=== PATIENT | female | born 1950 | race Caucasian/White ===

== ENCOUNTER 2020-03-07 08:53 | Emergency (ER) | payer OTHER, BC ==
--- OUTSIDE RECORDS SUMMARY | 2020-03-07 08:55 | XMS REPORT | Continuity of Care Document ---
:1950 Author Organization [facility] t Address [address] [place] [address] Care Team Providers Name Role Phone Juan David DELGADO Attending Clinician Doctor Unassigned, Name Attending Clinician Unavailable Problems This patient has no known problems. Allergies, Adverse Reactions, Alerts This patient has no known allergies or adverse reactions. Medications This patient has no known medications. Procedures This patient has no known procedures. Encounters Start End Encounter Admission Attending Care Care Encounter Source Date/Time Date/Time Type Type Clinicians Facility Department ID 2020-03-04 2020-03-04 Telephone Juan David [facility] [id number] 00:00:00 00:00:00 [facility] [id number] [place] [id number] Professio [phone] nal [address] One 2020-03-03 2020-03-03 Telemedici Juan David [facility] [id number] 06:51:01 07:06:01 ne Visit [facility] [id number] [place] [id number] Professio [phone] nal 044 Office [address] One 2020-02-23 2020-02-23 Refill Doctor [facility] [id number] 00:00:00 00:00:00 Unassigned, Anoop [id number] [place] [id number] Professio [phone] [address] 2020-02-23 2020-02-23 Refill Doctor [facility] [id number] 00:00:00 00:00:00 Unassigned, Health [id number] [place] [id number] Professio [phone] [place] [address] Office [facility] 2020-02-21 2020-02-21 Telephone Juan David [facility] [id number] 00:00:00 00:00:00 [facility] [id number] [place] [id number] Professio [phone] [address] 2020-02-20 2020-02-20 Patient Juan David, [facility] [id number] 00:00:00 00:00:00 Secure Msg Chase [facility]al[facility] [id number] [place] [id number] Professio [id number] [address] 2020-02-20 2020-02-20 Orders Doctor [facility] [id number] 00:00:00 00:00:00 Only Unassigned, ANJELICA [id number] [place] [facility] 4.2.7.2.686 [id number] 009 2020-02-19 2020-02-19 Patient Juan David, [facility] [id number] 00:00:00 00:00:00 Secure Msg Chase Davalos [id number] [place] [id number] Professio [phone] [address] 2020-01-31 2020-01-31 Patient Juan David, [facility] [id number] 00:00:00 00:00:00 Secure Msg Chase Davalos [id number] [place] [id number] Professio [phone] [address] 2019-12-18 2019-12-18 Orders Doctor [facility] [id number] 00:00:00 00:00:00 Only Unassigned, ANJELICA [id number] [place] [facility] [id number] [id number] [id number] Results This patient has no known results.
--- OUTSIDE RECORDS SUMMARY | 2020-03-07 08:56 | XMS REPORT | Summary of Care ---
:1950 Author Organization [facility] Address [address] [place] [address] Care Team Providers Name Role Phone MD Juan David Primary Care Provider Reason for Visit Reason Comments Refill Request Encounter Details Date Type Department Care Team Description 12/29/2019 Refill [facility] Chase Sanchez MD Refill Request - [address] [place] [address] [place] [address] [phone] Allergies Active Allergy Reactions Severity Noted Date Comments Penicillins Unknown - See comments 12/03/2014 Unsur e of reaction was as a child documented as of this encounter (statuses as of 12/30/2019) Medications Medication Sig Dispensed Refills Start Date End Date Status zolpidem 10 mg Take 1 tablet 30 tablet 5 08/29/2019 Active tabletIndications: by mouth at Insomnia, unspecified bedtime as type needed for Insomnia. predniSONE 10 mg Take 1 tablet 30 tablet 5 08/29/2019 Active tabletIndications: by mouth Chronic low back pain daily. without sciatica, unspecified back pain laterality omeprazole 40 mg Take 1 60 capsule 2 08/29/2019 A ctive capsuleIndications: capsule by Gastroesophageal mouth 2 (two) reflux disease, times daily. esophagitis presence not specified LORazepam 1 mg Take 1 tablet 90 tablet 5 08/29/2019 Active tabletIndications: by mouth 3 Anxiety (three) times daily as needed for Anxiety or Agitation. FLUoxetine 20 mg TAKE ONE 90 capsule 1 08/29/2019 A ctive capsuleIndications: CAPSULE BY Depression, MOUTH AT unspecified BEDTIME depression type estradiol 2 mg Take 1 tablet 90 tablet 1 08/29/2019 Active tabletIndications: by mouth Menopause daily. diltiazem 60 mg Take 1 tablet 60 tablet 3 11/28/2019 Active tabletIndications: by mouth 4 Diffuse esophageal (four) times spasm daily. acetaminophen-codeine Take 1 tablet 180 tablet 0 12/02/2019 Active 300-60 mg by mouth tabletIndications: every 4 Chronic low back pain (four) hours without sciatica, as needed for unspecified back pain Pain. laterality metoclopramide HCl 10 TAKE 1 TABLET 100 tablet 1 12/02/2019 Active mg tabletIndications: BY MOUTH Irritable bowel EVERY 6 HOURS syndrome, unspecified NEEDED FOR type NAUSEA OR VOMITING temazepam 30 mg TAKE 1 30 capsule 5 12/30/2019 Ac tive capsuleIndications: CAPSULE BY Insomnia, unspecified MOUTH AT type BEDTIME NEEDED FOR INSOMNIA temazepam 30 mg TAKE ONE 30 capsule 5 08/29/2019 Di scontinued capsuleIndications: CAPSULE BY 0 Insomnia, unspecified MOUTH AT type BEDTIME NEEDED FOR INSOMNIA documented as of this encounter (statuses as of 12/30/2019) Active Problems Problem Noted Date Esophageal dysphagia 01/14/2019 Overview: Added automatically from request for omega mary [id number] Moderate protein-calorie malnutrition 01/14/2019 Overview: Added automatically from request for omega mary [id number] Weight loss, unintentional 01/14/2019 Overview: Added automatically from request for omega mary [id number] Altered mental status 11/28/2018 C. difficile diarrhea 10/18/2018 Altered mental state 10/15/2018 Abdominal pain 07/12/2018 Hiatal hernia 06/26/2018 Nausea 06/25/2018 Chest pain, unspecified 06/13/2018 Gastroenteritis 06/13/2018 Vertebral osteomyelitis 12/14/2016 E coli infection 12/14/2016 Infection 12/13/2016 Dyslipidemia 11/08/2016 Chronic low back pain without sciatica, unspecified ba ck pain laterality 10/31/2016 Insomnia, unspecified type 10/31/2016 Anxiety 10/31/2016 Osteomyelitis 10/12/2016 Leukocytosis 10/12/2016 History of back surgery 10/05/2016 Surgery, elective 09/21/2016 S/P lumbar fusion 09/01/2016 Essential hypertension 08/15/2016 Low T4 07/29/2016 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 Adrenal insufficiency 12/03/2014 Hyponatremia 11/12/2014 Hypokalemia 11/12/2014 Long-term current use of steroids 11/12/2014 Borderline abnormal thyroid function test 11/12/2014 Thyroid disease documented as of this encounter (statuses as of 12/30/2019) Resolved Problems Problem Noted Date Resolved Date Low serum cortisol level 11/12/2014 03/11/2015 documented as of this encounter (statuses as of 12/30/2019) Social History Tobacco Use Types Packs/Day Years Used Date Former Smoker Cigarettes 1.5 8 Smokeless Tobacco: Never Used Comments: smoked from [age] years old Alcohol Use Drinks/Week oz/Week Comments Yes Sex Assigned at Date Recorded Not on file Job Start Date Occupation Industry Not on file Not on file Not on file Travel History Travel Start Travel End No recent travel history available. documented as of this encounter Last Filed Vital Signs Not on filedocumented in this encounter Plan of Treatment Date Type Specialty Care Team Description 01/17/2020 Office Visit Gastroenterology Elena Burnette MD [address] [facility] [address] [place] [phone] Health Maintenance Due Date Last Done Comments HEPATITIS C (HCV) SCREEN 1950 DTaP,Tdap,and Td Vaccines (1 - Tdap) 1961 Breast Cancer Screening (MAMMOGRAM) 1990 COLONOSCOPY 2000 Zoster Recombinant Vaccine (SHINGRIX) (1 2000 of 2) Medicare Wellness Visit 10/11/2015 PNEUMOCOCCAL VACCINES 65+ (1 of 2 - PCV13) 10/11/2015 LUNG CANCER SCREEN: Recommended for age 0106/30/2019 06/30/19 19, 10/05/2016 55-80 with 30 + pack year history INFLUENZA VACCINE (#1) 2020 Depression Screening 05/21/2020 05/21/2019 Osteoporosis Screening 08/03/2026 08/03/2016 documented as of this encounter Implants Implanted Type Area Commercial Loan Assistant Device Shelf Model / Identifier Expiration Serial / Lot Date [facility] Maxxeus 10cc Cts #2017-40 - [id number] BONE N/A: [employer] 01/09/2018 / Implanted: Qty: 1 on 09/01/2016 by Fredrick Epps MD at [facility] [id number] Dbm Putty Maxxeus 10cc Cts #2017-40 - [id number] BONE N/A: [employer] 01/09/2018 / Implanted: Qty: 1 on 09/01/2016 by Fredrick Epps MD at [facility] [id number] Cancellous Crushed, [facility] Tissue Ser vices (1 10mm) Freeze Dried 90.0 Cc #1235-12 - [id number] BONE N/A: [facility] 11/09/20201234 / Implanted: Qty: 1 on 09/01/2016 by Fredrick Epps MD at [facility] [id number] Dbm Putty Maxxeus 10cc Cts #2017-40 - [id number] BONE N/A: [facility] 01/09/2018 / Implanted: Qty: 1 on 09/21/2016 by Fredrick Epps MD at [facility] [id number] [facility] [place] us Crushed (1 10mm) Freeze Dried 30.0 Cc #1024-12 - [id number] BONE N/A: [facility] 05/25/2021 Implanted: Qty: 1 on 09/21/2016 by Fredrick Epps MD at [facility] [id number] [facility] Tissue [facility] [place] us Crushed (1 10mm) Freeze Dried 30.0 Cc #1024-12 - [id number] BONE N/A: [facility] 05/25/2021 10 Implanted: Qty: 1 on 09/21/2016 by Fredrick Epps MD at [facility] [id number] Dbm Putty Maxxeus 10cc Cts #2018-40 - [id number] BONE N/A: [facility] 02/09/20182017-40 / Implanted: Qty: 1 on 12/16/2016 by Fredrick Epps MD at [facility] [id number] [id number] Cancellous Crushed, [facility] Tissue Ser vices (1 10mm) Freeze Dried 60.0 Cc #1234-12 - [id number] BONE N/A: [facility] 11/11/2021 12 34-12 / Implanted: Qty: 1 on 12/16/2016 by Fredrick Epps MD at [facility] [id number] 9 Cancellous Crushed, [facility] Tissue Ser vices (1 10mm) Freeze Dried 60.0 Cc #1234-12 - [id number] BONE N/A: [facility] 11/11/2021 3412 / Implanted: Qty: 1 on 12/16/2016 by Fredrick Epps MD at [facility] [id number] 9 Dbm Putty Maxxeus 10 Cts #2017-40 - [id number] BONE N/A: [facility] 02/09/20182017- / Implanted: Qty: 1 on 12/16/2016 by Fredrick Epps MD at [facility] [id number] Crosslink 4.75x10 Mltspn 38-42mm Medtronic #[id number] Crosslink N/A: Medtronic 12/16/2026 [id number] / Implanted: Qty: 2 on 12/16/2016 by Fredrick Epps MD at [facility] Back 0 / [id number] Lens LENS Right: Rell 05/11/2020 SN60WF / Implanted: Qty: 1 on 09/30/2015 by Leonel Davis MD at [facility] Eye 3 [id number] / [id number] Lens LENS Left: Rell 04/11/2020 SN60WF / Implanted: Qty: 1 on 10/14/2015 by Leonel Davis MD at [facility] 8 [id number] / [id number] Screw Solera 6.5x50mm Medtronic #[id number] - S0 SCREW N/A: Medtronic 09/01/2026 [id number] / Implanted: Qty: 4 on 09/01/2016 by Fredrick Epps MD at [facility] Spine 0 / [id number] Screw, Medtronic Solara 6.5x45 #[id number] - S0 SCREW N/A: Medtronic 09/01/2026 [id number] / Implanted: Qty: 2 on 09/01/2016 by Fredrick Epps MD at [facility] Spine 0 / [id number] Screw, Medtronic Solara 6.5x40 #[id number] - S0 SCREW N/A: Medtronic 09/01/2026 [id number] / Implanted: Qty: 2 on 09/01/2016 by Fredrick Epps MD at [facility] Spine 0 / [id number] Screw Solera 6.5x50mm Medtronic #[id number] - S0 SCREW N/A: Medtronic [id number] / Implanted: Qty: 2 on 09/21/2016 by Fredrick Epps MD at [facility] Spine 0 / [id number] Pedicle Screw 5.0 X 50mm SCREW N/A: Medtronic 12/16 [id number] / Implanted: Qty: 1 on 12/16/2016 by Fredrick Epps MD at [facility] Back 0 / [id number] Pedicle Screw 5.0 X 45mm SCREW N/A: Medtronic 12/16 [id number] / Implanted: Qty: 4 on 12/16/2016 by Fredrick Epps MD at [facility] Back 0 / [id number] Pedicle Screw 4.5 X 45mm SCREW N/A: Medtronic 12/16 [id number] / Implanted: Qty: 1 on 12/16/2016 by Fredrick Epps MD at [facility] Back 0 / [id number] Pedicle Screw 4.5 X 40mm SCREW N/A: Medtronic 12/16 [id number] / Implanted: Qty: 1 on 12/16/2016 by Fredrick Epps MD at [facility] Back 0 / [id number] Pedicle Screw 5.0 X 40mm SCREW N/A: Medtronic 12/16 [id number] / Implanted: Qty: 1 on 12/16/2016 by Fredrick Epps MD at [facility] Back 0 / [id number] Screw Solera 4.75 Ti Ns Break Off Medtronic #[id number] - S0 N/A: Medtronic 09/01/2026 [id number] / Implanted: Qty: 8 on 09/01/2016 by Fredrick Epps MD at [facility] Spine 0 / [id number] Angel 4.75 Ccm Ns Curved 100mm Solera Medtronic #[id number] - S0 N/A: Medtronic 09/01/2026 [id number] / Implanted: Qty: 2 on 09/01/2016 by Fredrick Epps MD at [facility] Spine 0 / 0 Screw Solera 4.75 Ti Ns Break Off Medtronic #[id number] - S0 N/ A: Medtronic [id number] / Implanted: Qty: 10 on 09/21/2016 by Fredrick Ziegler MD at [facility] Spine 0 / [id number] Screw Solera 7.5x50mm Medtronic #[id number] - S0 N/A: Medtronic [id number] / Implanted: Qty: 1 on 09/21/2016 by Fredrick pEps MD at [facility] Spine 0 / [id number] Screw Solera 8.5x45mm Mas Medtronic #[id number] - S0 N/A: Medtronic [id number] / Implanted: Qty: 1 on 09/21/2016 by Fredrick Epps MD at [facility] Spine 0 / [id number] Angel 4.74h139iz Medtronic #[id number] - S0 N/A: Medtroni c [id number] / Implanted: Qty: 1 on 09/21/2016 by Fredrick Epps MD at [facility] Spine 0 / 0 Screw Solera 4.75 Ti Ns Break Off Medtronic #[id number] - S0 N/A: Medtronic 12/16/2026 [id number] / Implanted: Qty: 16 on 12/16/2016 by Fredrick Ziegler MD at [facility] Back 0 / [id number] Angel 4.48f781nl Medtronic #[id number] - S0 N/A: Medtroni c 12/16/2026 [id number] / Implanted: Qty: 1 on 12/16/2016 by Fredrick Epps MD at [facility] Back 0 / 0 documented as of this encounter Results Not on filedocumented in this encounter Visit Diagnoses Diagnosis Insomnia, unspecified type documented in this encounter Additional Health Concerns Infection Onset Date Last Indicated Resolved Time Extended Contact- CDiff 10/18/2018 10/18/2018 documented as of this encounter Insurance Payer Benefit Plan / Subscriber ID Effective Phone Address T ype Group Dates MEDICARE MEDICARE PART A xxxxxxxxxxx 2015-Pres [phone] [address] Medicare & B ent [phone] [id number] [place] [id number] BCBS OF BCBS [id number] 2018-Pres [phone] [facility] ent [phone] [place] [address] documented as of this encounter
--- OUTSIDE RECORDS SUMMARY | 2020-03-07 08:56 | XMS REPORT | Summary of Care ---
:1950 Author Organization [facility] - [facility] Address [address] [place] [address] Care Team Providers Name Role Phone MD Juan David Primary Care Provider Encounter Details Date Type Department Care Team Description 11/08/2019 Patient Secure [facility] Pediatric Doctor Simone arceo, and [facility] [place] [address] [place] [address] Allergies Active Allergy Reactions Severity Noted Date Comments Penicillins Unknown - See comments 12/03/2014 Unsur e of reaction was as a child documented as of this encounter (statuses as of 12/14/2019) Medications Medication Sig Dispensed Refills Start Date End Date Status zolpidem 10 mg Take 1 tablet 30 tablet 5 08/29/2019 Active tabletIndications: by mouth at Insomnia, unspecified bedtime as type needed for Insomnia. temazepam 30 mg TAKE ONE 30 capsule 5 08/29/2019 Ac tive capsuleIndications: CAPSULE BY Insomnia, unspecified MOUTH AT type BEDTIME NEEDED FOR INSOMNIA predniSONE 10 mg Take 1 tablet 30 tablet 5 08/29/2019 Active tabletIndications: by mouth daily. Chronic low back pain without sciatica, unspecified back pain laterality omeprazole 40 mg Take 1 capsule 60 capsule 2 08/29/2019 Active capsuleIndications: by mouth 2 Gastroesophageal reflux (two) times disease, esophagitis daily. presence not specified LORazepam 1 mg Take 1 tablet 90 tablet 5 08/29/2019 Active tabletIndications: by mouth 3 Anxiety (three) times daily as needed for Anxiety or Agitation. FLUoxetine 20 mg TAKE ONE 90 capsule 1 08/29/2019 A ctive capsuleIndications: CAPSULE BY Depression, unspecified MOUTH AT depression type BEDTIME estradiol 2 mg Take 1 tablet 90 tablet 1 08/29/2019 Active tabletIndications: by mouth daily. Menopause documented as of this encounter (statuses as of 12/14/2019) Active Problems Problem Noted Date Esophageal dysphagia 01/14/2019 Overview: Added automatically from request for omega mary [id number] Moderate protein-calorie malnutrition 01/14/2019 Overview: Added automatically from request for omega mary [id number] Weight loss, unintentional 01/14/2019 Overview: Added automatically from request for omega mary [id number] Altered mental status 11/28/2018 C. difficile diarrhea [...] as of this encounter (statuses as of 12/14/2019) Resolved Problems Problem Noted Date Resolved Date Low serum cortisol level 11/12/2014 03/11/2015 documented as of this encounter (statuses as of 12/14/2019) Social History Tobacco Use Types Packs/Day Years [...] Office Visit Gastroenterology Elena Burnette MD [address] [facility] [address] [place] [address] Health Maintenance Due Date Last Done Comments [...] 30 + pack year history INFLUENZA VACCINE (Season Ended) 2020 Depression Screening 05/21/2020 05/21/2019 Osteoporosis Screening 08/03/2026 08/03/2016 documented as of this encounter Implants Implanted Type Area Armed Security Professional Device Shelf Model / Identifier Expiration Serial / Lot Date Dbm Putty Maxxeus 10cc Cts #2017-40 - [id number] BONE N/A: [employer] 01/09/2018 / Implanted: Qty: 1 on 09/01/2016 by Fredrick Epps MD at [facility] [id number] Dbm Putty Maxxeus 10cc Cts #2017-40 - [id number] BONE N/A: [employer] 01/09/2018 / Implanted: Qty: 1 on 09/01/2016 by Fredrick Epps MD at [facility] [id number] Cancellous Crushed, [facility] Ser vices (1 10mm) Freeze Dried 90.0 Cc #1235-12 - [id number] BONE N/A: Community 11/09/2020 1235 - / Implanted: Qty: 1 on 09/01/2016 by Fredrick Epps MD at [facility] [id number] [phone] Dbm Putty Maxxeus 10cc Cts #2017-40 - [id number] BONE N/A: [facility] 01/09/2018 / Implanted: Qty: 1 on 09/21/2016 by Fredrick Epps MD at [facility] [phone] [facility] Cancello us Crushed (1 10mm) Freeze Dried 30.0 Cc #1024-12 - [id number] BONE N/A: [facility] 05/25/2021 10 Implanted: Qty: 1 on 09/21/2016 by Fredrick Epps MD at [facility] [phone] [facility] Cancello us Crushed (1 10mm) Freeze Dried 30.0 Cc #1024-12 - [id number] BONE N/A: [facility] 05/25/2021 10 / Implanted: Qty: 1 on 09/21/2016 by Fredrick Epps MD at [facility] [phone] Dbm Putty Maxxeus 10cc Cts #2017-40 - [id number] BONE N/A: [facility] 02/09/2018 / Implanted: Qty: 1 on 12/16/2016 by Fredrick Epps MD at [facility] [id number] [phone] Cancellous Crushed, [facility] Tissue Ser vices (1 10mm) Freeze Dried 60.0 Cc #1234-12 - [id number] BONE N/A: [facility] 11/11/2021 12 / Implanted: Qty: 1 on 12/16/2016 by Fredrick Epps MD at [facility] [phone] Cancellous Crushed, [facility] Tissue Ser vices (1 10mm) Freeze Dried 60.0 Cc #1234-12 - [id number] BONE N/A: Community 11/11/2021 12 34-12 / Implanted: Qty: 1 on 12/16/2016 by Fredrick Epps MD at [facility] [phone] -[phone] Dbm Putty Maxxeus 10cc Cts #2018-40 - [id number] BONE N/A: [facility] 02/09/2018 / Implanted: Qty: 1 on 12/16/2016 by Fredrick Epps MD at [facility] [phone] [phone] Crosslink 4.75x10 Mltspn 38-42mm Medtronic #[id number] Crosslink N/A: Medtronic 12/16/2026 [id number] / Implanted: Qty: 2 on 12/16/2016 by Fredrick Epps MD at [facility] / [id number] Lens LENS Right: Rell 05/11/2020 SN60WF / Implanted: Qty: 1 on 09/30/2015 by Leonel Davis MD at [facility] 2 [id number] / [id number] Lens LENS Left: Rell 04/11/2020 SN60WF / Implanted: Qty: 1 on 10/14/2015 by Leonel Davis MD at [facility] 6 [id number] / [id number] Screw Solera 6.5x50mm Medtronic #[id number] - S0 SCREW N/A: Medtronic 09/01/2026 [id number] / Implanted: Qty: 4 on 09/01/2016 by Fredrick Epps MD at [facility] / [id number] Screw, Medtronic Solara 6.5x45 #[id number] - S0 SCREW N/A: Medtronic 09/01/2026 [id number] / Implanted: Qty: 2 on 09/01/2016 by Fredrick Epps MD at [facility] / [id number] Screw, Medtronic Solara 6.5x40 #[id number] - S0 SCREW N/A: Medtronic 09/01/2026 [id number] / Implanted: Qty: 2 on 09/01/2016 by Fredrick Epps MD at [facility] / [id number] Screw Solera 6.5x50mm Medtronic #[id number] - S0 SCREW N/A: Medtronic [id number] / Implanted: Qty: 2 on 09/21/2016 by Fredrick Epps MD at [facility] 0 / [id number] Pedicle Screw 5.0 X 50mm SCREW N/A: Medtronic 12/16 [id number] / Implanted: Qty: 1 on 12/16/2016 by Fredrick Epps MD at [facility] 0 / [id number] Pedicle Screw 5.0 X 45mm SCREW N/A: Medtronic 12/16 [id number] / Implanted: Qty: 4 on 12/16/2016 by Fredrick Epps MD at [facility] 0 / [id number] Pedicle Screw 4.5 X 45mm SCREW N/A: Medtronic 12/16 [id number] / Implanted: Qty: 1 on 12/16/2016 by Fredrick Epps MD at [facility] 0 / [id number] Pedicle Screw 4.5 X 40mm SCREW N/A: Medtronic 12/16 [id number] / Implanted: Qty: 1 on 12/16/2016 by Fredrick Epps MD at [facility] 0 / [id number] Pedicle Screw 5.0 X 40mm SCREW N/A: Medtronic 12/16 [id number] / Implanted: Qty: 1 on 12/16/2016 by Fredrick Epps MD at [facility] 0 / [id number] Screw Solera 4.75 Ti Ns Break Off Medtronic #[id number] - S0 N/A: Medtronic 09/01/2026 [id number] / Implanted: Qty: 8 on 09/01/2016 by Fredrick Epps MD at [facility] 0 / [id number] Angel 4.75 Ccm Ns Curved 100mm Solera Medtronic #[id number] - S0 N/A: Medtronic 09/01/2026 [id number] / Implanted: Qty: 2 on 09/01/2016 by Fredrick Epps MD at [facility] / 0 Screw Solera 4.75 Ti Ns Break Off Medtronic #[id number] - S0 N/ A: Medtronic [id number] / Implanted: Qty: 10 on 09/21/2016 by Fredrick Ziegler MD at [facility] / [id number] Screw Solera 7.5x50mm Medtronic #[id number] - S0 N/A: Medtronic [id number] / Implanted: Qty: 1 on 09/21/2016 by Fredrick Epps MD at [facility] / [id number] Screw Solera 8.5x45mm Mas Medtronic #[id number] - S0 N/A: Medtronic [id number] / Implanted: Qty: 1 on 09/21/2016 by Fredrick Epps MD at [facility] / [id number] Angel 4.79x371or Medtronic #[id number] - S0 N/A: Medtroni c [id number] / Implanted: Qty: 1 on 09/21/2016 by Fredrick Epps MD at [facility] / 0 Screw Solera 4.75 Ti Ns Break Off Medtronic #[id number] - S0 N/A: Medtronic 12/16/2026 [id number] / Implanted: Qty: 16 on 12/16/2016 by Fredrick Ziegler MD at [facility] 0 / [id number] Angel 4.22w307sc Medtronic #[id number] - S0 N/A: Medtroni c 12/16/2026 [id number] / Implanted: Qty: 1 on 12/16/2016 by Fredrick Epps MD at [facility] 0 / 0 documented as of this encounter Results Not on filedocumented in this encounter Additional Health Concerns Infection Onset Date Last Indicated Resolved Time Extended Contact- CDiff 10/18/2018 10/18/2018 documented as of this encounter Insurance Payer Benefit Plan / Subscriber ID Effective Phone Address T ype Group Dates MEDICARE MEDICARE PART A xxxxxxxxxxx 2015-Pres [phone] [address] [place] Medicare & B ent [id number] RACHEL BROWN [phone] BCBS OF BCBS [id number] 2018-Pres [phone] [address] [facility] TRADITIONAL ent [phone] [place] [address] documented as of this encounter
--- OUTSIDE RECORDS SUMMARY | 2020-03-07 08:57 | XMS REPORT | Summary of Care ---
:1950 Author Organization [facility] - [facility] Address [address] [place] [address] Care Team Providers Name Role Phone MD Juan David Primary Care Provider Encounter Details Date Type Department Care Team Description 01/02/2020 Patient Secure [facility] GASTROENTEROLOGY [place], [place] MD Jemma [phone] [place], [place] [phone] Allergies Active Allergy Reactions Severity Noted Date Comments Penicillins Unknown - See comments 12/03/2014 Unsur e of reaction was as a child documented as of this encounter (statuses as of 01/06/2020) Medications Medication Sig Dispensed Refills Start Date [...] 08/29/2019 Active tabletIndications: by mouth daily. Menopause diltiazem 60 mg Take 1 tablet 60 tablet 3 11/28/2019 Active tabletIndications: by mouth 4 Diffuse esophageal spasm (four) times daily. acetaminophen-codeine Take 1 tablet 180 tablet 0 12/02/2019 Active 300-60 mg by mouth every tabletIndications: 4 (four) hours Chronic low back pain as needed for without sciatica, Pain. unspecified back pain laterality metoclopramide HCl 10 mg TAKE 1 TABLET 100 tablet 1 12/02/2019 Active tabletIndications: BY MOUTH EVERY Irritable bowel 6 HOURS syndrome, unspecified NEEDED FOR type NAUSEA OR VOMITING temazepam 30 mg TAKE 1 CAPSULE 30 capsule 5 12/30/2019 Active capsuleIndications: BY MOUTH AT Insomnia, unspecified BEDTIME type NEEDED FOR INSOMNIA documented as of this encounter (statuses as of 01/06/2020) Active Problems Problem Noted Date Esophageal dysphagia 01/14/2019 Overview: Added automatically from request for omega mary [id number] Moderate protein-calorie malnutrition 01/14/2019 Overview: Added automatically from request for omega mary [id number] Weight loss, unintentional 01/14/2019 Overview: Added automatically from request for omega mary [id number] Altered mental status 11/28/2018 C. difficile diarrhea [...] as of this encounter (statuses as of 01/06/2020) Resolved Problems Problem Noted Date Resolved Date Low serum cortisol level 11/12/2014 03/11/2015 documented as of this encounter (statuses as of 01/06/2020) Social History Tobacco Use Types Packs/Day Years [...] Office Visit Gastroenterology Elena Burnette MD [address] [facility] [address] [place] [phone] Health Maintenance Due Date Last Done Comments [...] of this encounter Implants Implanted Type Area Car Repairer Helper Device Shelf Model / Identifier Expiration Serial / Lot Date Dbelina Membreno [address]cc [facility] #2018-40 - [id number] BONE N/A: [employer] 01/09/20182017-40 / Implanted: Qty: 1 on 09/01/2016 by Penny bañuelos, Fredrick Hernandez MD at [facility] [phone] Dbm Putty Maxxeus 10cc Cts #2017-40 - [id number] BONE N/A: [employer] 01/09/2018 / Implanted: Qty: 1 on 09/01/2016 by Fredrick Epps MD at [facility] [phone] -[phone] Cancellous Crushed, [facility] Tissue Ser vices (1 10mm) Freeze Dried 90.0 Cc #1235-12 - [id number] BONE N/A: [facility] 11/09/20201234 / Implanted: Qty: 1 on 09/01/2016 by Fredrick Epps MD at [facility] 231475-12 0 [phone] Dbm Putty Maxxeus 10cc Cts #2017-40 - [id number] BONE N/A: [facility] 01/09/2018 / Implanted: Qty: 1 on 09/21/2016 by Fredrick Epps MD at [facility] [phone] 1 [facility] [place] us Crushed (1 10mm) Freeze Dried 30.0 Cc #1024-12 - [id number] BONE N/A: [facility] 05/25/2021 10 Implanted: Qty: 1 on 09/21/2016 by Fredrick Epps MD at [facility] [phone] [facility] Tissue [facility] Cancello us Crushed (1 10mm) Freeze Dried 30.0 Cc #1024-12 - [id number] BONE N/A: [facility] 05/25/2021 10 Implanted: Qty: 1 on 09/21/2016 by Fredrick Epps MD at [facility] 665958-96 -3112 Dbm Putty Maxxeus 10cc Cts #2017-40 - [id number] BONE N/A: [facility] 02/09/2018 / Implanted: Qty: 1 on 12/16/2016 by Fredrick Epps MD at [facility] 590570-66 3219 Cancellous Crushed, [facility] Tissue Ser vices (1 10mm) Freeze Dried 60.0 Cc #1234-12 - [id number] BONE N/A: [facility] 11/11/2021 34-12 / Implanted: Qty: 1 on 12/16/2016 by Fredrick Epps MD at [facility] 502707-11 3059 Cancellous Crushed, [facility] Tissue Ser vices (1 10mm) Freeze Dried 60.0 Cc #1234-12 - [id number] BONE N/A: [facility] 11/11/2021 12 3412 / Implanted: Qty: 1 on 12/16/2016 by Fredrick Epps MD at [facility] 263735-87 -9 Dbm Putty Maxxeus 10cc Cts #2018-40 - [id number] BONE N/A: [facility] 02/09/20182017-40 / Implanted: Qty: 1 on 12/16/2016 by Fredrick pEps MD at [facility] 082767-52 Crosslink 4.75x10 Mltspn 38-42mm Medtronic #[id number] Crosslink N/A: Medtronic 12/16/2026 [id number] / Implanted: Qty: 2 on 12/16/2016 by Fredrick Epps MD at [facility] 0 / [id number] Lens LENS Right: Rell 05/11/2020 SN60WF / Implanted: Qty: 1 on 09/30/2015 by Leonel Davis MD at [facility] 3 [id number] / [id number] Lens LENS Left: Rell 04/11/2020 SN60WF / Implanted: Qty: 1 on 10/14/2015 by Leonel Davis MD at [facility] 6 [id number] / [id number] Screw Solera 6.5x50mm Medtronic #[id number] - S0 SCREW N/A: Medtronic 09/01/2026 [id number] / Implanted: Qty: 4 on 09/01/2016 by Fredrick Epps MD at [facility] 0 / [id number] Screw, Medtronic Solara 6.5x45 #[id number] - S0 SCREW N/A: Medtronic 09/01/2026 [id number] / Implanted: Qty: 2 on 09/01/2016 by Fredrick Epps MD at [facility] 0 / [id number] Screw, Medtronic Solara 6.5x40 #[id number] - S0 SCREW N/A: Medtronic 09/01/2026 [id number] / Implanted: Qty: 2 on 09/01/2016 by Fredrick Epps MD at [facility] 0 / [id number] Screw Solera 6.5x50mm Medtronic #[id number] - S0 SCREW N/A: Medtronic [id number] / Implanted: Qty: 2 on 09/21/2016 by Fredrick Epps MD at [facility] 0 / [id number] Pedicle Screw 5.0 X 50mm SCREW N/A: Medtronic 12/16 [id number] / Implanted: Qty: 1 on 12/16/2016 by Fredrick Epps MD at [facility] 0 / [id number] Pedicle Screw 5.0 X 45mm SCREW N/A: Medtronic 12/16 [id number] / Implanted: Qty: 4 on 12/16/2016 by Fredrick Epps MD at [facility] 0 / [id number] Pedicle Screw 4.5 X 45mm SCREW N/A: Medtronic 12/16 [id number] / Implanted: Qty: 1 on 12/16/2016 by Fredrick Epps MD at [facility] 0 / [id number] Pedicle Screw 4.5 X 40mm SCREW N/A: Medtronic 12/16 [id number] / Implanted: Qty: 1 on 12/16/2016 by Fredrick Epps MD at [facility] 0 / [id number] Pedicle Screw 5.0 X 40mm SCREW N/A: Medtronic 12/16 [id number] / Implanted: Qty: 1 on 12/16/2016 by Fredrick Epps MD at [facility] 0 / [id number] Screw Solera 4.75 Ti Ns Break Off Medtronic #[id number] - S0 N/A: Medtronic 09/01/2026 [id number] / Implanted: Qty: 8 on 09/01/2016 by Fredrick Epps MD at [facility] 0 / [id number] Angel 4.75 Ccm Ns Curved 100mm Solera Medtronic #[id number] - S0 N/A: Medtronic 09/01/2026 [id number] / Implanted: Qty: 2 on 09/01/2016 by rFedrick Epps MD at [facility] 0 / 0 Screw Solera 4.75 Ti Ns Break Off Medtronic #[id number] - S0 N/ A: Medtronic [id number] / Implanted: Qty: 10 on 09/21/2016 by Fredrick Ziegler MD at [facility] 0 / [id number] Screw Solera 7.5x50mm Medtronic #[id number] - S0 N/A: Medtronic [id number] / Implanted: Qty: 1 on 09/21/2016 by Fredrick Epps MD at [facility] 0 / [id number] Screw Solera 8.5x45mm Mas Medtronic #[id number] - S0 N/A: Medtronic [id number] / Implanted: Qty: 1 on 09/21/2016 by Fredrick Epps MD at [facility] 0 / [id number] Angel 4.45y741qg Medtronic #[id number] - S0 N/A: Medtroni c [id number] / Implanted: Qty: 1 on 09/21/2016 by Fredrick Epps MD at [facility] 0 / 0 Screw Solera 4.75 Ti Ns Break Off Medtronic #[id number] - S0 N/A: Medtronic 12/16/2026 [id number] / Implanted: Qty: 16 on 12/16/2016 by Fredrick Ziegler MD at [facility] 0 / [id number] Angel 4.99q849lp Medtronic #[id number] - S0 N/A: Medtroni c 12/16/2026 [id number] / Implanted: Qty: 1 on 12/16/2016 by Fredrick Epps MD at [facility] Back 0 / 0 documented as of [...] HENNY X Medicare & B ent [id number] [place] [phone] BCBS OF BCBS [id number] 2018-Pres [phone] [address] [facility] TRADITIONAL ent [id number] [place] [address] documented as of this encounter
--- OUTSIDE RECORDS SUMMARY | 2020-03-07 08:57 | XMS REPORT | Summary of Care ---
:1950 Author Organization [facility] - [facility] Address [address] [place] [address] Care Team Providers Name Role Phone MD Juan David Primary Care Provider Reason for Visit Reason Comments Refill Request Encounter Details Date Type Department Care Team Description 12/30/2019 Refill [facility] Lut Ronald bourne, DO Refill Request -[address] [id number] [place] [address] [place], [place] [phone] Allergies Active Allergy Reactions Severity Noted Date [...] Added automatically from request for omega mary [id number] Moderate protein-calorie malnutrition 01/14/2019 Overview: Added automatically from request for omega mary [id number] Weight loss, unintentional 01/14/2019 Overview: Added automatically from request for omega mary [id number] Altered mental status 11/28/2018 C. difficile diarrhea [...] Office Visit Gastroenterology Elena Burnette MD [address] [facility] [address] [place] [address] Health Maintenance Due Date Last Done Comments [...] of this encounter Implants Implanted Type Area Peoplesoft Taleo Manager Device Shelf Model / Identifier Expiration Serial / Lot Date Dbm Johanna Westbrooks 10cc Cts #2018-40 - [id number] BONE N/A: [employer]ity 01/09/2018 / Implanted: Qty: 1 on 09/01/2016 by Fredrick Epps MD at [facility] [phone] Dbm Putty Maxxeus 10cc Cts #2017-40 - [id number] BONE N/A: [employer] 01/09/2018 / Implanted: Qty: 1 on 09/01/2016 by Fredrick Epps MD at [facility] [phone] Cancellous Crushed, [facility] Tissue Ser vices (1 10mm) Freeze Dried 90.0 Cc #1235-12 - [id number] BONE N/A: [facility] 11/09/20201234 / Implanted: Qty: 1 on 09/01/2016 by Fredrick Epps MD at [facility] [phone] Dbm Putty Maxxeus 10cc Cts #2017- - [id number] BONE N/A: [facility] 01/09/2018 / Implanted: Qty: 1 on 09/21/2016 by Fredrick Epps MD at [facility] [phone] [facility] Tissue [facility] Cancello us Crushed (1 10mm) Freeze Dried 30.0 Cc #1024-12 - [id number] BONE N/A: [facility] 05/25/2021 10 Implanted: Qty: 1 on 09/21/2016 by Fredrick Epps MD at [facility] [phone] [facility] Tissue Services Cancello us Crushed (1 10mm) Freeze Dried 30.0 Cc #1024-12 - [id number] BONE N/A: [facility] 05/25/2021 10 Implanted: Qty: 1 on 09/21/2016 by Fredrick Epps MD at [facility] [phone] Dbm Putty Maxxeus 10cc Cts #2017- - [id number] BONE N/A: [facility] 02/09/2018 2018-40 / Implanted: Qty: 1 on 12/16/2016 by Fredrick Epps MD at [facility] Back Tissue Services [phone] Cancellous Crushed, [facility] Tissue Ser vices (1 10mm) Freeze Dried 60.0 Cc #1234-12 - [id number] BONE N/A: [facility] 11/11/2021 12 3412 / Implanted: Qty: 1 on 12/16/2016 by Fredrick Epps MD at [facility] Back Tissue Services 159063-08 9 Cancellous Crushed, [facility] Tissue Ser vices (1 10mm) Freeze Dried 60.0 Cc #1234-12 - [id number] BONE N/A: [facility] 11/11/2021 34 / Implanted: Qty: 1 on 12/16/2016 by Fredrick Epps MD at [facility] Back Tissue Services [phone] 9 Dbm Putty Maxxeus 10 Cts #2018-40 - [id number] BONE N/A: [facility] 02/09/20182017- / Implanted: Qty: 1 on 12/16/2016 by Fredrick Epps MD at [facility] Back Tissue Services 051562-48 3219 Crosslink 4.75x10 Mltspn 38-42mm Medtronic #[id number] Crosslink N/A: Medtronic 12/16/2026 [id number] / Implanted: Qty: 2 on 12/16/2016 by Fredrick Epps MD at [facility] Back 0 / [id number] Lens LENS Right: Rell 05/11/2020 SN60WF / Implanted: Qty: 1 on 09/30/2015 by Leonel Davis MD at [facility] 5 [id number] / [id number] Lens LENS Left: Rell 04/11/2020 SN60WF / Implanted: Qty: 1 on 10/14/2015 by Leonel Davis MD at [facility] Eye 3 [id number] / [id number] Screw Solera 6.5x50mm Medtronic #[id number] - S0 SCREW N/A: Medtronic 09/01/2026 [id number] / Implanted: Qty: 4 on 09/01/2016 by Fredrick Epps MD at [facility] Spine 0 / [id number] Screw, Medtronic Solara 6.5x45 #[id number] - S0 SCREW N/A: Medtronic 09/01/2026 [id number] / Implanted: Qty: 2 on 09/01/2016 by Fredrick Epps MD at [facility] Spine 0 / [id number] Screw, Medtronic Solara 6.5x40 #[id number] - S0 SCREW N/A: Medtronic 09/01/2026 [id number] / Implanted: Qty: 2 on 09/01/2016 by Fredrick Epps MD at [facility] Spine 0 / [id number] Screw Solera 6.5x50mm Medtronic #[id number] - S0 SCREW N/A: Medtronic [id number] / Implanted: Qty: 2 on 09/21/2016 by Fredrick Epps MD at [facility] Spine 0 / [id number] Pedicle Screw 5.0 X 50mm SCREW N/A: Medtronic 12/16 [id number] / Implanted: Qty: 1 on 12/16/2016 by Fredrick Epps MD at [facility] Back 0 / [id number] Pedicle Screw 5.0 X 45mm SCREW N/A: Medtronic 12/16 [id number] / Implanted: Qty: 4 on 12/16/2016 by Fredrick Epps MD at [facility] Back 0 / [id number] Pedicle Screw 4.5 X 45mm SCREW N/A: Medtronic 12/16 [id number] / Implanted: Qty: 1 on 12/16/2016 by Fredrick Epps MD at [facility] Back 0 / [id number] Pedicle Screw 4.5 X 40mm SCREW N/A: Medtronic 12/16 [id number] / Implanted: Qty: 1 on 12/16/2016 by Fredrick Epps MD at [facility] Back 0 / [id number] Pedicle Screw 5.0 X 40mm SCREW N/A: Medtronic 12/16 [id number] / Implanted: Qty: 1 on 12/16/2016 by Fredrick Epps MD at [facility] Back 0 / [id number] Screw Solera 4.75 Ti Ns Break Off Medtronic #[id number] - S0 N/A: Medtronic 09/01/2026 [id number] / Implanted: Qty: 8 on 09/01/2016 by Fredrick Epps MD at [facility] Spine 0 / [id number] Angel 4.75 Ccm Ns Curved 100mm Solera Medtronic #[id number] - S0 N/A: Medtronic 09/01/2026 [id number] / Implanted: Qty: 2 on 09/01/2016 by Fredrick Epps MD at [facility] Spine 0 / 0 Screw Solera 4.75 Ti Ns Break Off Medtronic #[id number] - S0 N/ A: Medtronic [id number] / Implanted: Qty: 10 on 09/21/2016 by Fredrick Ziegler MD at [facility] Spine 0 / [id number] Screw Solera 7.5x50mm Medtronic #[id number] - S0 N/A: Medtronic [id number] / Implanted: Qty: 1 on 09/21/2016 by Fredrick Epps MD at [facility] Spine 0 / [id number] Screw Solera 8.5x45mm Mas Medtronic #[id number] - S0 N/A: Medtronic [id number] / Implanted: Qty: 1 on 09/21/2016 by Fredrick Epps MD at [facility] Spine 0 / [id number] Angel 4.82u438dw Medtronic #[id number] - S0 N/A: Medtroni c [id number] / Implanted: Qty: 1 on 09/21/2016 by Fredrick Epps MD at [facility] Spine 0 / 0 Screw Solera 4.75 Ti Ns Break Off Medtronic #[id number] - S0 N/A: Medtronic 12/16/2026 [id number] / Implanted: Qty: 16 on 12/16/2016 by Fredrick Ziegler MD at [facility] Back 0 / [id number] Angel 4.61v340hl Medtronic #[id number] - S0 N/A: Medtroni c 12/16/2026 [id number] / Implanted: Qty: 1 on 12/16/2016 by Fredrick Epps MD at [facility] Back 0 / 0 documented as of this encounter Results Not on filedocumented in this encounter Visit Diagnoses Diagnosis Diffuse esophageal spasm Dyskinesia of esophagus documented in this encounter Additional Health Concerns Infection Onset Date Last Indicated Resolved Time Extended Contact- CDiff 10/18/2018 10/18/2018 documented as of this encounter Insurance Payer Benefit Plan / Subscriber ID Effective Phone Address T ype Group Dates MEDICARE MEDICARE PART A xxxxxxxxxxx 2015-Pres [phone] [address] [place] Medicare & B ent [phone] R[place]HEL BROWN [address] BCBS OF BCBS [id number] 2018-Pres [phone] [facility] TRADITIONAL ent [phone] [place] [address] documented as of this encounter
--- OUTSIDE RECORDS SUMMARY | 2020-03-07 08:57 | XMS REPORT | Summary of Care ---
:[address] [facility] - [facility] Address [address] [place] [address] Care Team Providers Name Role Phone MD Juan David Primary Care Provider Encounter Details Date Type Department Care Team Description 12/03/2019 Patient Secure [facility] Pediatric Doctor Simone arceo, and Adult [facility] [place] [address] [place] [address] Allergies Active Allergy Reactions Severity Noted Date Comments Penicillins Unknown - See comments 12/03/2014 Unsur e of reaction was as a child documented as of this encounter (statuses as of 01/04/2020) Medications Medication Sig Dispensed Refills Start Date [...] unspecified NEEDED FOR type NAUSEA OR VOMITING documented as of this encounter (statuses as of 01/04/2020) Active Problems Problem Noted Date Esophageal dysphagia 01/14/2019 Overview: Added automatically from request for [employer]y [id number] Moderate protein-calorie malnutrition 01/14/2019 Overview: Added automatically from request for omega mary [id number] Weight loss, unintentional 01/14/2019 Overview: Added automatically from request for omega mary [id number] Altered mental status 11/28/2018 C. difficile diarrhea [...] as of this encounter (statuses as of 01/04/2020) Resolved Problems Problem Noted Date Resolved Date Low serum cortisol level 11/12/2014 03/11/2015 documented as of this encounter (statuses as of 01/04/2020) Social History Tobacco Use Types Packs/Day Years [...] Office Visit Gastroenterology Elena Burnette MD [address] [facility] [address] [place] [address] Health Maintenance Due Date Last [...] of this encounter Implants Implanted Type Area Helpdesk Specialist Device Shelf Model / Identifier Expiration Serial / Lot Date Dbm Putty Maxxeus 10cc Cts #2017-40 - [id number] BONE N/A: [employer] 01/09/2018 / Implanted: Qty: 1 on 09/01/2016 by Fredrick Epps MD at [facility] 055730-85 / [id number] Dbm Putty Maxxeus 10cc Cts #2018-40 - [id number] BONE N/A: [employer] 01/09/20182017- / Implanted: Qty: 1 on 09/01/2016 by Fredrick Epps MD at [facility] [phone] Cancellous Crushed, [facility] Tissue Ser vices (1 10mm) Freeze Dried 90.0 Cc #1235-12 - [id number] BONE N/A: [facility] 11/09/20201234 / Implanted: Qty: 1 on 09/01/2016 by Fredrick Epps MD at [facility] [phone] 0 49-3600 Dbm Putty Maxxeus 10cc Cts #2017-40 - [id number] BONE N/A: [facility] 01/09/2018 / Implanted: Qty: 1 on 09/21/2016 by Fredrick Epps MD at [facility] [phone] [facility] Tissue [facility] Cancello us Crushed (1 10mm) Freeze Dried 30.0 Cc #1024-12 - [id number] BONE N/A: [facility] 05/25/2021 10 / Implanted: Qty: 1 on 09/21/2016 by Fredrick Epps MD at [facility] [phone] -3113 [facility] Tissue Services Cancello us Crushed (1 10mm) Freeze Dried 30.0 Cc #1024-12 - [id number] BONE N/A: [facility] 05/25/2021 10 / Implanted: Qty: 1 on 09/21/2016 by Fredrick Epps MD at [facility] [phone] [phone] Dbm Putty Maxxeus 10cc Cts #2017- - [id number] BONE N/A: [facility] 02/09/2018 / Implanted: Qty: 1 on 12/16/2016 by Fredrick Epps MD at [facility] Back Tissue Services 258817-15 [phone] Cancellous Crushed, [facility] Tissue Ser vices (1 10mm) Freeze Dried 60.0 Cc #1234-12 - [id number] BONE N/A: [facility] 11/11/2021 12 3412 / Implanted: Qty: 1 on 12/16/2016 by Fredrick Epps MD at [facility] Tissue Services 382393-95 9 Cancellous Crushed, [facility] (1 10mm) Freeze Dried 60.0 Cc #1234-12 - [id number] BONE N/A: [facility] 11/11/2021 12 3412 / Implanted: Qty: 1 on 12/16/2016 by Fredrick Epps MD at [facility] Tissue Services 207761-49 9 Dbm Putty Maxxeus 10cc Cts #2018-40 - [id number] BONE N/A: [facility] 02/09/2018 / Implanted: Qty: 1 on 12/16/2016 by Fredrick Epps MD at [facility] Tissue Services 638101-52 [phone] Crosslink 4.75x10 Mltspn 38-42mm Medtronic #[id number] Crosslink N/A: Medtronic 12/16/2026 [id number] / Implanted: Qty: 2 on 12/16/2016 by Fredrick Epps MD at [facility] Back 0 / [id number] Lens LENS Right: Rell 05/11/2020 SN60WF / Implanted: Qty: 1 on 09/30/2015 by Leonel Davis MD at [facility] Eye 8 [id number] / [id number] Lens LENS Left: Rell 04/11/2020 SN60WF / Implanted: Qty: 1 on 10/14/2015 by Leonel Davis MD at [facility] Eye 7 [id number] / [id number] Screw Solera 6.5x50mm Medtronic #[id number] - S0 SCREW N/A: Medtronic 09/01/2026 [id number] / Implanted: Qty: 4 on 09/01/2016 by Fredrick Epps MD at [facility] Spine 0 / [id number] Screw, Medtronic Solara 6.5x45 #[id number] - S0 SCREW N/A: Medtronic 09/01/2026 [id number] / Implanted: Qty: 2 on 09/01/2016 by Fredrick Epps MD at [facility] Spine 0 / [id number] Screw, Medtronic Solara 6.5x40 #[id number] - S0 SCREW N/A: Medtronic 09/01/2026 [id number] / Implanted: Qty: 2 on 09/01/2016 by Fredrick Epps MD at [facility] Spine 0 / [id number] Screw Solera 6.5x50mm Medtronic #[id number] - S0 SCREW N/A: Medtronic [id number] / Implanted: Qty: 2 on 09/21/2016 by Fredrick Epps MD at [facility] Spine 0 / [id number] Pedicle Screw 5.0 X 50mm SCREW N/A: Medtronic 12/16 [id number] / Implanted: Qty: 1 on 12/16/2016 by Fredrick Epps MD at [facility] Back 0 / [id number] Pedicle Screw 5.0 X 45mm SCREW N/A: Medtronic 12/16 [id number] / Implanted: Qty: 4 on 12/16/2016 by Fredrick Epps MD at [facility] Back 0 / [id number] Pedicle Screw 4.5 X 45mm SCREW N/A: Medtronic 12/16 [id number] / Implanted: Qty: 1 on 12/16/2016 by Fredrick Epps MD at [facility] Back 0 / [id number] Pedicle Screw 4.5 X 40mm SCREW N/A: Medtronic 12/16 [id number] / Implanted: Qty: 1 on 12/16/2016 by Fredrick Epps MD at [facility] Back 0 / [id number] Pedicle Screw 5.0 X 40mm SCREW N/A: Medtronic 12/16 [id number] / Implanted: Qty: 1 on 12/16/2016 by Fredrick Epps MD at [facility] Back 0 / [id number] Screw Solera 4.75 Ti Ns Break Off Medtronic #[id number] - S0 N/A: Medtronic 09/01/2026 [id number] / Implanted: Qty: 8 on 09/01/2016 by Fredrick Epps MD at [facility] Spine 0 / [id number] Angel 4.75 Ccm Ns Curved 100mm Solera Medtronic #[id number] - S0 N/A: Medtronic 09/01/2026 [id number] / Implanted: Qty: 2 on 09/01/2016 by Fredrick Epps MD at [facility] Spine 0 / 0 Screw Solera 4.75 Ti Ns Break Off Medtronic #[id number] - S0 N/ A: Medtronic [id number] / Implanted: Qty: 10 on 09/21/2016 by Fredrick Ziegler MD at [facility] Spine 0 / [id number] Screw Solera 7.5x50mm Medtronic #[id number] - S0 N/A: Medtronic [id number] / Implanted: Qty: 1 on 09/21/2016 by Fredrick Epps MD at [facility] Spine 0 / [id number] Screw Solera 8.5x45mm Mas Medtronic #[id number] - S0 N/A: Medtronic [id number] / Implanted: Qty: 1 on 09/21/2016 by Fredrick Epps MD at [facility] Spine 0 / [id number] Angel 4.97e757xo Medtronic #[id number] - S0 N/A: Medtroni c [id number] / Implanted: Qty: 1 on 09/21/2016 by Fredrick Epps MD at [facility] Spine 0 / 0 Screw Solera 4.75 Ti Ns Break Off Medtronic #[id number] - S0 N/A: Medtronic 12/16/2026 [id number] / Implanted: Qty: 16 on 12/16/2016 by Fredrick Ziegler MD at [facility] Back 0 / [id number] Angel 4.82i847es Medtronic #[id number] - S0 N/A: Medtroni c 12/16/2026 [id number] / Implanted: Qty: 1 on 12/16/2016 by Fredrick Epps MD at [facility] Back 0 / 0 documented as of [...] HENNY X Medicare & B ent [id number] [place] [id number] BCBS OF BCBS [id number] 2018-Pres [phone] O [facility] TRADITIONAL ent [phone] [place] [address] documented as of this encounter
--- OUTSIDE RECORDS SUMMARY | 2020-03-07 08:58 | XMS REPORT | Summary of Care ---
:1950 Author Organization [facility] Address [address] [place] [address] Care Team Providers Name Role Phone MD Juan David Primary Care Provider Reason for Visit Reason Comments Refill Request Encounter Details Date Type Department Care Team Description 01/27/2020 Refill [facility] Pediatric and Chase Fall MD Refill Request Adult Primary Care- [address] [place] [address] [place] [address], [phone] [address] [place] [address] Allergies Active Allergy Reactions Severity Noted Date Comments Penicillins Unknown - See comments 12/03/2014 Unsur e of reaction was as a child documented as of this encounter (statuses as of 01/27/2020) Medications Medication Sig Dispensed Refills Start Date [...] 4 Diffuse esophageal (four) times spasm daily. metoclopramide HCl 10 TAKE 1 TABLET 100 tablet 1 12/02/2019 Active mg tabletIndications: BY MOUTH Irritable bowel EVERY 6 HOURS syndrome, unspecified NEEDED FOR type NAUSEA OR VOMITING temazepam 30 mg TAKE 1 30 capsule 5 12/30/2019 Ac tive capsuleIndications: CAPSULE BY Insomnia, unspecified MOUTH AT type BEDTIME NEEDED FOR INSOMNIA ACETAMINOPHEN-CODEINE TAKE ONE 180 tablet 0 01/27/2020 Active 300-60 mg TABLET BY tabletIndications: MOUTH EVERY 4 Chronic low back pain HOURS without sciatica, NEEDED FOR unspecified back pain PAIN laterality acetaminophen-codeine Take 1 tablet 180 tablet 0 12/02/2019 Discontinued 300-60 mg by mouth 0 tabletIndications: every 4 Chronic low back pain (four) hours without sciatica, as needed for unspecified back pain Pain. laterality documented as of this encounter (statuses as of 01/27/2020) Active Problems Problem Noted Date Esophageal dysphagia 01/14/2019 Overview: Added automatically from request for omega mary [id number] Moderate protein-calorie malnutrition 01/14/2019 Overview: Added automatically from request for omega mary [id number] Weight loss, unintentional 01/14/2019 Overview: Added automatically from request for omega mary [id number] Altered mental status 11/28/2018 C. difficile diarrhea [...] as of this encounter (statuses as of 01/27/2020) Resolved Problems Problem Noted Date Resolved Date Low serum cortisol level 11/12/2014 03/11/2015 documented as of this encounter (statuses as of 01/27/2020) Social History Tobacco Use Types Packs/Day Years Used Date Former Smoker Cigarettes 1.5 8 Smokeless Tobacco: Never Used Comments: smoked from [age] years old Alcohol Use Drinks/Week oz/Week Comments Yes Sex Assigned at Date Recorded Not on file documented as of this encounter Last Filed Vital Signs Not on filedocumented in this encounter Miscellaneous Notes Telephone Encounter - Ivana Willingham MA - 01/27/2020 11:21 AM CDT Please review and sign if appropriate. Last Refilled: acetaminophen-codeine 300-60 mg tablet 180 tablet 0 12/02/2019 Pharmacy: [facility] GLENYS: 08/29/2019 NOV: none documented in this encounter Plan of Treatment Health Maintenance Due Date Last Done Comments HEPATITIS C (HCV) SCREEN 1950 DTaP,Tdap,and Td Vaccines (1 - Tdap) 1969 Breast Cancer Screening (MAMMOGRAM) 1990 COLON CANCER SCREENING FIT DNA EVERY 3 2000 YEARS COLON CANCER SCREENING SIGMOIDOSCOPY EVERY 2000 5 YEARS COLONOSCOPY 2000 Zoster Recombinant Vaccine (SHINGRIX) (1 2000 of 2) Medicare Wellness Visit 10/11/2015 PNEUMOCOCCAL VACCINES 65+ (1 of 1 - 10/11/2015 PPSV23) LUNG CANCER SCREEN: Recommended for age 0106/30/2019 06/30/19 19, 10/05/2016 55-80 with 30 + pack year history COLON CANCER SCREENING ANNUAL FIT/FOBT 10/18/2019 9 Colorectal Cancer Screening 10/18/2019 INFLUENZA VACCINE (#1) 2020 Depression Screening 05/21/2020 05/21/2019 Osteoporosis Screening 08/03/2026 08/03/2016 documented as of this encounter Implants Implanted Type Area Core Microarchitect Device Shelf Model / Identifier Expiration Serial / Lot Date Dbm Putty Maxxeus 10cc Cts #2017- - [id number] BONE N/A: Co mmunity 01/09/2018 / Implanted: Qty: 1 on 09/01/2016 by Fredrick Epps MD at [facility] [id number] [phone] Dbm Putty Maxxeus 10cc Cts #2017- - [id number] BONE N/A: Co mmunity 01/09/2018 / Implanted: Qty: 1 on 09/01/2016 by Fredrick Epps MD at [facility] [id number] [phone] Cancellous Crushed, [facility] (1 10mm) Freeze Dried 90.0 Cc #1235-12 - [id number] BONE N/A: [facility] 11/09/2020 123 / Implanted: Qty: 1 on 09/01/2016 by Fredrick Epps MD at [facility] [phone] Dbm Putty Maxxeus 10cc Cts #2018-40 - [id number] BONE N/A: [facility] 01/09/2018 / Implanted: Qty: 1 on 09/21/2016 by Fredrick Epps MD at [facility] [id number] -392 Bone, [facility] Cancello us Crushed (1 10mm) Freeze Dried 30.0 Cc #1024-12 - [id number] BONE N/A: [facility] 05/25/2021 / Implanted: Qty: 1 on 09/21/2016 by Fredrick Epps MD at [facility] 006580-51 -3112 Bone, [facility] Cancello us Crushed (1 10mm) Freeze Dried 30.0 Cc #1024-12 - [id number] BONE N/A: [facility] 05/25/2021 10 24-12 / Implanted: Qty: 1 on 09/21/2016 by Fredrick Epps MD at [facility] 411702-67 -3112 Dbm Putty Maxxeus 10cc Cts #2017- - [id number] BONE N/A: [facility] 02/09/2018 / Implanted: Qty: 1 on 12/16/2016 by Fredrick Epps MD at [facility] [phone] 0 Cancellous Crushed, [facility] (1 10mm) Freeze Dried 60.0 Cc #1234-12 - [id number] BONE N/A: [facility] 11/11/2021-12 / Implanted: Qty: 1 on 12/16/2016 by Fredrick Epps MD at [facility] 904884-78 -9 Cancellous Crushed, [facility] (1 10mm) Freeze Dried 60.0 Cc #1234-12 - [id number] BONE N/A: [facility] 11/11/2021 34-12 / Implanted: Qty: 1 on 12/16/2016 by Fredrick Epps MD at [facility] 154313-35 -3058 Dbm Putty Maxxeus 10cc Cts #2017- - [id number] BONE N/A: [facility] 02/09/2018 / Implanted: Qty: 1 on 12/16/2016 by Fredrick Epps MD at [facility] 111001-69 0 Crosslink 4.75x10 Mltspn 38-42mm Medtronic #[id number] Crosslink N/A: Medtronic 12/16/2026 [id number] / Implanted: Qty: 2 on 12/16/2016 by Fredrick Epps MD at [facility] Back 0 / [id number] Lens LENS Right: Rell 05/11/2020 SN60WF / Implanted: Qty: 1 on 09/30/2015 by Leonel Davis MD at [facility] 5 [id number] / [id number] Lens LENS Left: Rell 04/11/2020 SN60WF / Implanted: Qty: 1 on 10/14/2015 by Leonel Davis MD at [facility] 8 [id number] / [id number] Screw Solera 6.5x50mm Medtronic #[id number] - S0 SCREW N/A: Medtronic 09/01/2026 [id number] / Implanted: Qty: 4 on 09/01/2016 by Fredrick Epps MD at [facility] Sp[facility] 0 / [id number] Screw, Medtronic Solara 6.5x45 #[id number] - S0 SCREW N/A: Medtronic 09/01/2026 [id number] / Implanted: Qty: 2 on 09/01/2016 by Fredrick Epps MD at [facility] 0 / [id number] Screw, Medtronic Solara 6.5x40 #[id number] - S0 SCREW N/A: Medtronic 09/01/2026 [id number] / Implanted: Qty: 2 on 09/01/2016 by Fredrick Epps MD at [facility] 0 / [id number] Screw Solera 6.5x50mm Medtronic #[id number] - S0 SCREW N/A: Medtronic [id number] / Implanted: Qty: 2 on 09/21/2016 by Fredrick Epps MD at [facility] 0 / [id number] Pedicle Screw 5.0 X 50mm SCREW N/A: Medtronic 12/16 [id number] / Implanted: Qty: 1 on 12/16/2016 by Fredrick Epps MD at [facility] Back 0 / [id number] Pedicle Screw 5.0 X 45mm SCREW N/A: Medtronic 12/16 [id number] / Implanted: Qty: 4 on 12/16/2016 by Fredrick Epps MD at [facility] Back 0 / [id number] Pedicle Screw 4.5 X 45mm SCREW N/A: Medtronic 12/16 [id number] / Implanted: Qty: 1 on 12/16/2016 by Fredrick Epps MD at [facility] Back 0 / [id number] Pedicle Screw 4.5 X 40mm SCREW N/A: Medtronic 12/16 [id number] / Implanted: Qty: 1 on 12/16/2016 by Fredrick Epps MD at [facility] Back 0 / [id number] Pedicle Screw 5.0 X 40mm SCREW N/A: Medtronic 12/16 [id number] / Implanted: Qty: 1 on 12/16/2016 by Fredrick Epps MD at [facility] Back 0 / [id number] Screw Solera 4.75 Ti Ns Break Off Medtronic #[id number] - S0 N/A: Medtronic 09/01/2026 [id number] / Implanted: Qty: 8 on 09/01/2016 by Fredrick Epps MD at [facility] 0 / [id number] Angel 4.75 Ccm Ns Curved 100mm Solera Medtronic #[id number] - S0 N/A: Medtronic 09/01/2026 [id number] / Implanted: Qty: 2 on 09/01/2016 by Fredrick Epps MD at [facility] 0 / 0 Screw Solera 4.75 Ti Ns Break Off Medtronic #[id number] - S0 N/ A: Medtronic [id number] / Implanted: Qty: 10 on 09/21/2016 by Fredrick Ziegler MD at [facility] 0 / [id number] Screw Solera 7.5x50mm Medtronic #[id number] - S0 N/A: Medtronic [id number] / Implanted: Qty: 1 on 09/21/2016 by Fredrick Epps MD at [facility] 0 / [id number] Screw Solera 8.5x45mm Mas Medtronic #[id number] - S0 N/A: Medtronic [id number] / Implanted: Qty: 1 on 09/21/2016 by Fredrick Epps MD at [facility] 0 / [id number] Angel 4.77o683hw Medtronic #[id number] - S0 N/A: Medtroni c [id number] / Implanted: Qty: 1 on 09/21/2016 by Fredrick Epps MD at [facility] 0 / 0 Screw Solera 4.75 Ti Ns Break Off Medtronic #[id number] - S0 N/A: Medtronic 12/16/2026 [id number] / Implanted: Qty: 16 on 12/16/2016 by Fredrick Ziegler MD at [facility] Back 0 / [id number] Angel 4.93i516uv Medtronic #[id number] - S0 N/A: Medtroni c 12/16/2026 [id number] / Implanted: Qty: 1 on 12/16/2016 by Fredrick Epps MD at [facility] Back 0 / 0 documented as of this encounter Results Not on filedocumented in this encounter Visit Diagnoses Diagnosis Chronic low back pain without sciatica, unspecified back pain laterality documented in this encounter Additional Health Concerns Infection Onset Date Last Indicated Resolved Time Extended Contact- CDiff 10/18/2018 10/18/2018 documented as of this encounter Insurance Payer Benefit Plan / Subscriber ID Effective Phone Address T ype Group Dates MEDICARE MEDICARE PART A [id number] 2015-Pres [phone] [address] Medicare & B ent [phone] [place] [phone] BCBS OF BCBS [id number] 2018-Pres [phone] [facility] TRADITIONAL ent [phone] [place] [address] documented as of this encounter
--- OUTSIDE RECORDS SUMMARY | 2020-03-07 08:58 | XMS REPORT | Summary of Care ---
:1950 Author Organization [facility] Address [address] [place] [address] Care Team Providers Name Role Phone MD Juan David Primary Care Provider Encounter Details Date Type Department Care Team Description 01/15/2020 Patient Secure [facility] GASTROENTEROLOGY [place], [facility] MD Jemma [address] [phone] [place], [place] [phone] Allergies Active Allergy Reactions Severity Noted Date Comments Penicillins Unknown - See comments 12/03/2014 Unsur e of reaction was as a child documented as of this encounter (statuses as of 01/20/2020) Medications Medication Sig Dispensed Refills Start Date [...] as of this encounter (statuses as of 01/20/2020) Active Problems Problem Noted Date Esophageal dysphagia 01/14/2019 Overview: Added automatically from request for omega mary [id number] Moderate protein-calorie malnutrition 01/14/2019 Overview: Added automatically from request for omega mary [id number] Weight loss, unintentional 01/14/2019 Overview: Added automatically from request for omega mary [id number] Altered mental status 11/28/2018 C. difficile diarrhea [...] as of this encounter (statuses as of 01/20/2020) Resolved Problems Problem Noted Date Resolved Date Low serum cortisol level 11/12/2014 03/11/2015 documented as of this encounter (statuses as of 01/20/2020) Social History Tobacco Use Types Packs/Day Years Used Date Former Smoker Cigarettes 1.5 8 Smokeless Tobacco: Never Used Comments: smoked from [age] years old Alcohol Use Drinks/Week oz/Week Comments Yes Sex Assigned at Date Recorded Not on file documented as of this encounter Last Filed Vital Signs Not on filedocumented in this encounter Miscellaneous Notes Telephone Encounter - Vanesa Ramirez MD - 01/20/2020 7:56 AM CDTCalled patient back to clarify her MyChart question regarding repair of a "zever" and to address anyconcerns that she may have, but was sent to voicemail and unable to speak with patient. Left messagefor patient to call back. We will need records from her recent outside GI provider visits as well before making any further plans of care. Vanesa Ramirez MD Gastroenterology & Hepatology, PGY6 #[phone] documented in this encounter Plan of Treatment [...] of this encounter Implants Implanted Type Area Assistant Boys Track Coach Device Shelf Model / Identifier Expiration Serial / Lot Date Dbm Putty Maxxeus 10cc Cts #2017-40 - [id number] BONE N/A: [employer]ity 01/09/2018 / Implanted: Qty: 1 on 09/01/2016 by Fredrick Epps MD at [facility] 063074-29 -392 Dbm Putty Maxxeus 10cc Cts #2017-40 - [id number] BONE N/A: [employer]munity 01/09/2018 / Implanted: Qty: 1 on 09/01/2016 by Fredrick Epps MD at [facility] 613950-55 392 Cancellous Crushed, [facility] Tissue Ser vices (1 10mm) Freeze Dried 90.0 Cc #1235-12 - [id number] BONE N/A: [facility] 11/09/2020 123 / Implanted: Qty: 1 on 09/01/2016 by Fredrick Epps MD at [facility] 926925-34 0 49-3600 Dbm Putty Maxxeus 10cc Cts #2018-40 - [id number] BONE N/A: [facility] 01/09/2018 / Implanted: Qty: 1 on 09/21/2016 by Fredrick Epps MD at [facility] 360356-41 3921 Bone, [facility] Cancello us Crushed (1 10mm) Freeze Dried 30.0 Cc #1024-12 - [id number] BONE N/A: [facility] 05/25/2021 10 / Implanted: Qty: 1 on 09/21/2016 by Fredrick Epps MD at [facility] [id number] [phone] Bone, [facility] Cancello us Crushed (1 10mm) Freeze Dried 30.0 Cc #1024-12 - [id number] BONE N/A: [facility] 05/25/2021 10 12 / Implanted: Qty: 1 on 09/21/2016 by Fredrick Epps MD at [facility] 600112-09 0 [phone] Dbm Putty Maxxeus 10cc Cts #2017-40 - [id number] BONE N/A: [facility] 02/09/2018 / Implanted: Qty: 1 on 12/16/2016 by Fredrick Epps MD at [facility] 377571-78 0 Cancellous Crushed, [facility] Tissue Ser vices (1 10mm) Freeze Dried 60.0 Cc #1234-12 - [id number] BONE N/A: [facility] 11/11/202112 / Implanted: Qty: 1 on 12/16/2016 by Fredrick Epps MD at [facility] 468798-39 -9 Cancellous Crushed, [facility] Tissue [facility]ices (1 10mm) Freeze Dried 60.0 Cc #1234-12 - [id number] BONE N/A: [facility] 11/11/2021 12 3412 / Implanted: Qty: 1 on 12/16/2016 by Fredrick Epps MD at [facility] 573360-59 -3058 Dbm Putty Maxxeus 10cc Cts #2017- - [id number] BONE N/A: [facility] 02/09/2018 / Implanted: Qty: 1 on 12/16/2016 by Fredrick Epps MD at [facility] 010869-17 Crosslink 4.75x10 Mltspn 38-42mm Medtronic #[id number] Crosslink N/A: Medtronic 12/16/2026 [id number] / Implanted: Qty: 2 on 12/16/2016 by Fredrick Epps MD at [facility] 0 / [id number] Lens LENS Right: Rell 05/11/2020 SN60WF / Implanted: Qty: 1 on 09/30/2015 by Leonel Davis MD at [facility] 5 [id number] / [id number] Lens LENS Left: Rell 04/11/2020 SN60WF / Implanted: Qty: 1 on 10/14/2015 by Leonel Davis MD at [facility] 8 [id number] / [id number] Screw Solera 6.5x50mm Medtronic #[id number] - S0 SCREW N/A: Medtronic 09/01/2026 [id number] / Implanted: Qty: 4 on 09/01/2016 by Fredrick Epps MD at [facility] / [id number] Screw, Medtronic Solara 6.5x45 #[id number] - S0 SCREW N/A: Medtronic 09/01/2026 [id number] / Implanted: Qty: 2 on 09/01/2016 by Fredrick Epps MD at [facility] / [id number] Screw, Medtronic Solara 6.5x40 #[id number] - S0 SCREW N/A: Medtronic 09/01/2026 [id number] / Implanted: Qty: 2 on 09/01/2016 by Fredrick Epps MD at [facility] / [id number] Screw Solera 6.5x50mm Medtronic #[id number] - S0 SCREW N/A: Medtronic [id number] / Implanted: Qty: 2 on 09/21/2016 by Fredrick Epps MD at [facility] / [id number] Pedicle Screw 5.0 X 50mm SCREW N/A: Medtronic 12/16 [id number] / Implanted: Qty: 1 on 12/16/2016 by Fredrick Epps MD at [facility] 0 / [id number] Pedicle Screw 5.0 X 45mm SCREW N/A: Medtronic 12/16 [id number] / Implanted: Qty: 4 on 12/16/2016 by Fredrick Epps MD at [facility] 0 / [id number] Pedicle Screw 4.5 X 45mm SCREW N/A: Medtronic 12/16 [id number] / Implanted: Qty: 1 on 12/16/2016 by Fredrick Epps MD at [facility] 0 / [id number] Pedicle Screw 4.5 X 40mm SCREW N/A: Medtronic 12/16 [id number] / Implanted: Qty: 1 on 12/16/2016 by Fredrick Epps MD at [facility] 0 / [id number] Pedicle Screw 5.0 X 40mm SCREW N/A: Medtronic 12/16 [id number] / Implanted: Qty: 1 on 12/16/2016 by Fredrick Epps MD at [facility] 0 / [id number] Screw Solera 4.75 Ti Ns Break Off Medtronic #[id number] - S0 N/A: Medtronic 09/01/2026 [id number] / Implanted: Qty: 8 on 09/01/2016 by Fredrick Epps MD at [facility] 0 / [id number] Angel 4.75 Ccm Ns Curved 100mm Solera Medtronic #[id number] - S0 N/A: Medtronic 09/01/2026 [id number] / Implanted: Qty: 2 on 09/01/2016 by Fredrick Epps MD at [facility] / 0 Screw Solera 4.75 Ti Ns Break Off Medtronic #[id number] - S0 N/ A: Medtronic [id number] / Implanted: Qty: 10 on 09/21/2016 by Fredrick Ziegler MD at [facility] 0 / [id number] Screw Solera 7.5x50mm Medtronic #[id number] - S0 N/A: Medtronic [id number] / Implanted: Qty: 1 on 09/21/2016 by Fredrick Epps MD at [facility] 0 / [id number] Screw Solera 8.5x45mm Mas Medtronic #[id number] - S0 N/A: Medtronic [id number] / Implanted: Qty: 1 on 09/21/2016 by Fredrick Epps MD at [facility] 0 / [id number] Angel 4.64l070wv Medtronic #[id number] - S0 N/A: Medtroni c [id number] / Implanted: Qty: 1 on 09/21/2016 by Fredrick Epps MD at [facility] / 0 Screw Solera 4.75 Ti Ns Break Off Medtronic #[id number] - S0 N/A: Medtronic 12/16/2026 [id number] / Implanted: Qty: 16 on 12/16/2016 by Fredrick Ziegler MD at [facility] 0 / [id number] Angel 4.20l788ow Medtronic #[id number] - S0 N/A: Medtroni c 12/16/2026 [id number] / Implanted: Qty: 1 on 12/16/2016 by Fredrick Epps MD at [facility] 0 / 0 documented as of this encounter Results Not on filedocumented in this encounter Additional Health Concerns Infection Onset Date Last Indicated Resolved Time Extended Contact- CDiff 10/18/2018 10/18/2018 documented as of this encounter Insurance Payer Benefit Plan / Subscriber ID Effective Phone Address T ype Group Dates MEDICARE MEDICARE PART A [id number] 2015-Pres [phone] [address] [place] Medicare & B ent [id number] [place] [phone] BCBS OF BCBS [id number] 2018-Pres [phone] [address] [facility] ent [phone] [id number] [place] [address] documented as of this encounter
--- OUTSIDE RECORDS SUMMARY | 2020-03-07 08:59 | XMS REPORT | Summary of Care ---
:1950 Author Organization [facility] Address [address] [place] [address] Care Team Providers Name Role Phone MD Juan David Primary Care Provider Reason for Visit Reason Comments Assessment Encounter Details Date Type Department Care Team Description 01/31/2020 Telephone [facility] Pediatric and Chase Fall MD Assessment Adult Primary Care- [address] [place] [address] [place] [address], [phone] [address] [place] [address] Allergies Active Allergy Reactions Severity Noted Date Comments Penicillins Unknown - See comments 12/03/2014 Unsur e of reaction was as a child documented as of this encounter (statuses as of 01/31/2020) Medications Medication Sig Dispensed Refills Start Date [...] 08/29/2019 Active tabletIndications: by mouth daily. Menopause metoclopramide HCl 10 mg TAKE 1 TABLET 100 tablet 1 12/02/2019 Active tabletIndications: BY MOUTH EVERY Irritable bowel 6 HOURS syndrome, unspecified NEEDED FOR type NAUSEA OR VOMITING temazepam 30 mg TAKE 1 CAPSULE 30 capsule 5 12/30/2019 Active capsuleIndications: BY MOUTH AT Insomnia, unspecified BEDTIME type NEEDED FOR INSOMNIA DILTIAZEM 60 mg TAKE ONE TABLET 240 tablet 2 01/27/2020 Active tabletIndications: BY MOUTH FOUR Diffuse esophageal spasm TIMES A DAY ACETAMINOPHEN-CODEINE TAKE ONE TABLET 180 tablet 0 01/27/2020 Active 300-60 mg BY MOUTH EVERY tabletIndications: 4 HOURS Chronic low back pain NEEDED FOR PAIN without sciatica, unspecified back pain laterality documented as of this encounter (statuses as of 01/31/2020) Active Problems Problem Noted Date Esophageal dysphagia 01/14/2019 Overview: Added automatically from request for omega mary [id number] Moderate protein-calorie malnutrition 01/14/2019 Overview: Added automatically from request for omega mary [id number] Weight loss, unintentional 01/14/2019 Overview: Added automatically from request for omega mary [id number] Altered mental status 11/28/2018 C. difficile diarrhea [...] as of this encounter (statuses as of 01/31/2020) Resolved Problems Problem Noted Date Resolved Date Low serum cortisol level 11/12/2014 03/11/2015 documented as of this encounter (statuses as of 01/31/2020) Social History Tobacco Use Types Packs/Day Years Used Date Former Smoker Cigarettes 1.5 8 Smokeless Tobacco: Never Used Comments: smoked from [age] years old Alcohol Use Drinks/Week oz/Week Comments Yes Sex Assigned at Date Recorded Not on file documented as of this encounter Last Filed Vital Signs Not on filedocumented in this encounter Miscellaneous Notes Telephone Encounter - Enedina Moore - 01/31/2020 9:37 AM CDTOptum Rx drug concern on Zolpidem placed in nurse box documented in this encounter Plan of Treatment [...] of this encounter Implants Implanted Type 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 Device Shelf Model / Identifier Expiration Serial / Lot Date Dbm Putty Maxxeus 10cc Cts #2018-40 - [id number] BONE N/A: [employer]ity 01/09/2018 / Implanted: Qty: 1 on 09/01/2016 by Fredrick Epps MD at [facility] [phone] Dbm Putty Maxxeus 10cc Cts #2017-40 - [id number] BONE N/A: Me [employer]ity 01/09/2018 / Implanted: Qty: 1 on 09/01/2016 by Fredrick Epps MD at [facility] [id number] Cancellous Crushed, [facility] Tissue Ser vices (1 10mm) Freeze Dried 90.0 Cc #1235-12 - [id number] BONE N/A: [facility] 11/09/20201234 / Implanted: Qty: 1 on 09/01/2016 by Fredrick Epps MD at [facility] [id number] [phone] Dbm Putty Maxxeus 10cc Cts #2017-40 - [id number] BONE N/A: [facility] 01/09/2018 / Implanted: Qty: 1 on 09/21/2016 by Fredrick Epps MD at [facility] [id number] [facility] [place] us Crushed (1 10mm) Freeze Dried 30.0 Cc #1024-12 - [id number] BONE N/A: [facility] 05/25/2021 10 Implanted: Qty: 1 on 09/21/2016 by Fredrick Epps MD at [facility] [id number] [id number] [facility] Canc[place] us Crushed (1 10mm) Freeze Dried 30.0 Cc #1024-12 - [id number] BONE N/A: [facility] 05/25/2021 10 / Implanted: Qty: 1 on 09/21/2016 by Fredrick Epps MD at [facility] [id number] [id number] Dbm Putty Maxxeus 10cc Cts #2018-40 - [id number] BONE N/A: [facility] 02/09/20182017-40 / Implanted: Qty: 1 on 12/16/2016 by Fredrick Epps MD at [facility] [id number] Cancellous Crushed, [facility] Tissue Ser vices (1 10mm) Freeze Dried 60.0 Cc #1234-12 - [id number] BONE N/A: [facility] 11/11/2021 12 34-12 / Implanted: Qty: 1 on 12/16/2016 by Fredrick Epps MD at [facility] [id number] Cancellous Crushed, [facility] Tissue Ser vices (1 10mm) Freeze Dried 60.0 Cc #1234-12 - [id number] BONE N/A: [facility] 11/11/2021 12 3412 / Implanted: Qty: 1 on 12/16/2016 by Fredrick Epps MD at [facility] [id number] Dbm Putty Maxxeus [facility] Cts #2018-40 - [id number] BONE N/A: [facility] 02/09/2018 / Implanted: Qty: 1 on 12/16/2016 by Fredrick Epps MD at [facility] [id number] 3219 Crosslink 4.75x10 Mltspn 38-42mm Medtronic #[id number] Crosslink N/A: Medtronic 12/16/2026 [id number] / Implanted: Qty: 2 on 12/16/2016 by Fredrick Epps MD at [facility] Back 0 / [id number] Lens LENS Right: Rell 05/11/2020 SN60WF / Implanted: Qty: 1 on 09/30/2015 by Leonel Davis MD at [facility] Eye 3 [id number] / [id number] Lens LENS Left: Rell 04/11/2020 SN60WF / Implanted: Qty: 1 on 10/14/2015 by Leonel Davis MD at [facility] Eye 7 [id number] / [id number] Screw Solera 6.5x50mm Medtronic #[id number] - S0 SCREW N/A: Medtronic 09/01/2026 [id number] / Implanted: Qty: 4 on 09/01/2016 by Fredrick Epps MD at [facility] Sp[facility] 0 / [id number] Screw, Medtronic Solara 6.5x45 #[id number] - S0 SCREW N/A: Medtronic 09/01/2026 [id number] / Implanted: Qty: 2 on 09/01/2016 by Fredrick Epps MD at [facility] Sp[facility] 0 / [id number] Screw, Medtronic Solara 6.5x40 #[id number] - S0 SCREW N/A: Medtronic 09/01/2026 [id number] / Implanted: Qty: 2 on 09/01/2016 by Fredrick Epps MD at [facility] 0 / [id number] Screw Solera 6.5x50mm Medtronic #[id number] - S0 SCREW N/A: Medtronic [id number] / Implanted: Qty: 2 on 09/21/2016 by Fredrick Epps MD at [facility] Sp[facility] 0 / [id number] Pedicle Screw 5.0 X 50mm SCREW N/A: Medtronic 12/16 [id number] / Implanted: Qty: 1 on 12/16/2016 by Fredrick Epps MD at [facility] Back 0 / [id number] Pedicle Screw 5.0 X 45mm SCREW N/A: Medtronic 12/16 [id number] / Implanted: Qty: 4 on 12/16/2016 by Fredrick Epps MD at [facility] Back 0 / [id number] Pedicle Screw 4.5 X 45mm SCREW N/A: Medtronic 12/16 [id number] / Implanted: Qty: 1 on 12/16/2016 by Fredrick Epps MD at [facility] Back 0 / [id number] Pedicle Screw 4.5 X 40mm SCREW N/A: Medtronic 12/16 [id number] / Implanted: Qty: 1 on 12/16/2016 by Fredrick Epps MD at [facility] Back 0 / [id number] Pedicle Screw 5.0 X 40mm SCREW N/A: Medtronic 12/16 [id number] / Implanted: Qty: 1 on 12/16/2016 by Fredrick Epps MD at [facility] Back 0 / [id number] Screw Solera 4.75 Ti Ns Break Off Medtronic #[id number] - S0 N/A: Medtronic 09/01/2026 [id number] / Implanted: Qty: 8 on 09/01/2016 by Fredrick Epps MD at [facility] Sp[facility] 0 / [id number] Angel 4.75 Ccm Ns Curved 100mm Solera Medtronic #[id number] - S0 N/A: Medtronic 09/01/2026 [id number] / Implanted: Qty: 2 on 09/01/2016 by rFedrick Epps MD at [facility] 0 / 0 Screw Solera 4.75 Ti Ns Break Off Medtronic #[id number] - S0 N/ A: Medtronic [id number] / Implanted: Qty: 10 on 09/21/2016 by Fredrick Ziegler MD at [facility] Sp[facility] 0 / [id number] Screw Solera 7.5x50mm Medtronic #[id number] - S0 N/A: Medtronic [id number] / Implanted: Qty: 1 on 09/21/2016 by Fredrick Epps MD at [facility] Sp[facility] 0 / [id number] Screw Solera 8.5x45mm Mas Medtronic #[id number] - S0 N/A: Medtronic [id number] / Implanted: Qty: 1 on 09/21/2016 by Fredrick Epps MD at [facility] Sp[facility] 0 / [id number] Angel 4.94d722tt Medtronic #[id number] - S0 N/A: Medtroni c [id number] / Implanted: Qty: 1 on 09/21/2016 by Fredrick Epps MD at [facility] Sp[facility] 0 / 0 Screw Solera 4.75 Ti Ns Break Off Medtronic #[id number] - S0 N/A: Medtronic 12/16/2026 [id number] / Implanted: Qty: 16 on 12/16/2016 by Fredrick Ziegler MD at [facility] Back 0 / [id number] Angel 4.85n884hx Medtronic #[id number] - S0 N/A: Medtroni c 12/16/2026 [id number] / Implanted: Qty: 1 on 12/16/2016 by Fredrick Epps MD at [facility] Back 0 / 0 documented as of this encounter Results Not on filedocumented in this encounter Additional Health Concerns Infection Onset Date Last Indicated Resolved Time Extended Contact- CDiff 10/18/2018 10/18/2018 documented as of this encounter Insurance Payer Benefit Plan / Subscriber ID Effective Phone Address T ype Group Dates MEDICARE MEDICARE PART A [id number] 2015-Pres [phone] [address] [place] Medicare & B ent [phone] [place] [address] BCBS OF BCBS [id number] 2018-Pres [phone] [facility] TRADITIONAL ent [phone] [place] [address] documented as of this encounter
--- OUTSIDE RECORDS SUMMARY | 2020-03-07 08:59 | XMS REPORT | Summary of Care ---
:[address] [facility] Address [address] [place] [address] Care Team Providers Name Role Phone MD Juan David Primary Care Provider Reason for Visit Reason Comments Refill Request Encounter Details Date Type Department Care Team Description 01/26/2020 Refill [facility] Lut Ronald bourne, DO Refill Request -[address] [address] [address] [place] [address] [place], [place] [phone] Allergies Active Allergy Reactions [...] 08/29/2019 Active tabletIndications: by mouth Menopause daily. metoclopramide HCl 10 TAKE 1 TABLET 100 tablet 1 12/02/2019 Active mg tabletIndications: BY MOUTH Irritable bowel EVERY 6 HOURS syndrome, unspecified NEEDED FOR type NAUSEA OR VOMITING temazepam 30 mg TAKE 1 30 capsule 5 12/30/2019 Ac tive capsuleIndications: CAPSULE BY Insomnia, unspecified MOUTH AT type BEDTIME NEEDED FOR INSOMNIA DILTIAZEM 60 mg TAKE ONE 240 tablet 2 01/27/2020 Ac tive tabletIndications: TABLET BY Diffuse esophageal MOUTH FOUR spasm TIMES A DAY diltiazem 60 mg Take 1 tablet 60 tablet 3 11/28/2019 Discontinued tabletIndications: by mouth 4 0 Diffuse esophageal (four) times spasm daily. documented as of this encounter (statuses as of 01/27/2020) Active Problems Problem Noted Date Esophageal dysphagia 01/14/2019 Overview: Added automatically from request for omega mary [id number] Moderate protein-calorie malnutrition 01/14/2019 Overview: Added automatically from request for omega mary [id number] Weight loss, unintentional 01/14/2019 Overview: Added automatically from request for omega mary [id number] Altered mental status 11/28/2018 C. difficile diarrhea [...] this encounter Miscellaneous Notes Telephone Encounter - Joanie Pride - 01/27/2020 3:55 PM CDTLOV: 09/03/2019 NOV: None ASSESSMENT/ PLAN Zunilda Jason is a 68 year old female with PMHx as listed above, presenting for follow up of dysphagia and history of C diff colitis. ?Gastroparesis Diffuse esophageal spasm Dysphagia,solids>liquids, improved Hx of large paraesophageal hernia, s/p Mirna gastroplasty and Herrera fundoplication (06/2018) Severe protein-calorie malnutrition, unintentional weight loss~35lbs since 06/2018 Most recent endoscopy with findings of diffuse distal esophageal spasm and moderate amount of retained food in stomach suggestive of gastroparesis.Patient could not tolerate a manometry study to further assess for underlying motility disorder, however, her dysphagia symptoms have significant improved on CCB therapy.Option for placement of post-pyloric feeding tube to maintain patient's nutrition waspreviouslydiscussed with patient and her , however, theywished to defer procedure in the past, although now patient is requesting feeding tube.Patient's overall significant weight losssince 06/2018 is secondary to her inability to maintain daily caloric requirements, due to feeling full quickly during mealsand previous dysphagia symptoms, however, her weight has now stabilized.Wepreviously recommended patient have gastric emptying study to evaluate forpossible gastroparesis, h owever, patient not willing to tolerate 4hr study.Previously orderedmodified barium (cookie) swallow study has also not been done. - Increase Diltiazem 60mg po QID, however, we discussed that this medication could actually worsen gastroparesis if in fact patient does have gastroparesis - Discussed with patient regarding assessment of her new symptoms in the ER; patient states she willdecide when to get evaluated - Patient now request post-pyloric feeding tube placement (may be done as outpatient vs inpatient pending patient's clinical status) - Follow up results of modified barium (cookie) swallow to evaluate for possible oropharyngeal dysphagia (to be done at another date) - Small frequent meals, chew foods well, encouraged patient to continue protein shakes to supplementmeals Hx ofrecurrent, non-severeC diff infection (10/2018, 11/2018, 12/2018, 05/2019, 06/2019) Patient with hx of recurrent C diff infection, s/p treatment with Vancomycin/Flagyl (10/2018), then Vancomycin/Rifaximin (11/2018),and8wk Vancomycin taper for third episode ofnon-severeC diff colitis over the last year(05/2019).She completed Fidaxomicin course with recent stool studies showing persistent positive C diff toxin (06/2019). Previously discussedfecal microbiota transplant with patient, however, explained this may be out of pocket. Despite persistently positive C diff stool toxin, patient's diarrhea symptoms have improved at this time; will hold off on additional antibiotic the rapy as patient may be colonized. - Monitor for recurrence of diarrhea symptoms Abdominal pain, resolved Previous CTAP showed no intraabdominal abnormalities to explain patient's RUQ pain symptoms. LFTs were also normal. RUQ US obtained showed findings of prior cholecystectomy and mildly dilated intrahepatic biliary ducts, unchanged from prior; possible small hepatic hemangioma. Liver chemistries normal. - Continue to monitor Patient was discussed withDr. Jen butt. A total of 30 minutes was spent on the telephone due to patient unable to obtain video call option with the patient. After visit summary (AVS ) documentation will be available through [employer] for this encounter. 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 Device Shelf Model / Identifier Expiration Serial / Lot Date Dbm Putty Maxxeus 10cc Cts #2017-40 - [id number] BONE N/A: [employer]ity 01/09/2018 / Implanted: Qty: 1 on 09/01/2016 by Fredrick Epps MD at [facility] [id number] [phone] Dbm Putty Maxxeus 10cc Cts #2017- - [id number] BONE N/A: Co [employer]munity 01/09/2018 / Implanted: Qty: 1 on 09/01/2016 by Fredrick Epps MD at [facility] [id number] [phone] Cancellous Crushed, [facility] (1 10mm) Freeze Dried 90.0 Cc #1235-12 - [id number] BONE N/A: Community 11/09/2020 1235 - / Implanted: Qty: 1 on 09/01/2016 by Fredrick Epps MD at [facility] [phone] 0 / [id number] Dbm Putty Maxxeus 10cc Cts #2017-40 - [id number] BONE N/A: Community 01/09/2018 / Implanted: Qty: 1 on 09/21/2016 by Fredrick Epps MD at [facility] [id number] [id number] [facility] Cancello us Crushed (1 10mm) Freeze Dried 30.0 Cc #1024-12 - [id number] BONE N/A: [facility] 05/25/2021 10 / Implanted: Qty: 1 on 09/21/2016 by Fredrick Epps MD at [facility] [id number] -[id number] [facility] Cancello us Crushed (1 10mm) Freeze Dried 30.0 Cc #1024-12 - [id number] BONE N/A: [facility] 05/25/2021 10 Implanted: Qty: 1 on 09/21/2016 by Fredrick Epps MD at [facility] [phone] -[id number] Dbm Putty Maxxeus 10cc Cts #2018-40 - [id number] BONE N/A: [facility] 02/09/2018 / Implanted: Qty: 1 on 12/16/2016 by Fredrick Epps MD at [facility] [id number] [phone] Cancellous Crushed, [facility] Tissue Ser vices (1 10mm) Freeze Dried 60.0 Cc #1234-12 - [id number] BONE N/A: [facility] 11/11/2021 / Implanted: Qty: 1 on 12/16/2016 by Fredrick Epps MD at [facility] [id number] [phone] Cancellous Crushed, [facility] Tissue Ser vices (1 10mm) Freeze Dried 60.0 Cc #1234-12 - [id number] BONE N/A: [facility] 11/11/2021 / Implanted: Qty: 1 on 12/16/2016 by Fredrcik Epps MD at [facility] [id number] [phone] Dbm Putty Maxxeus 10cc Cts #2018-40 - [id number] BONE N/A: Community 02/09/20182017-40 / Implanted: Qty: 1 on 12/16/2016 by Fredrick Epps MD at [facility] Tissue [facility] [id number] [phone] Crosslink 4.75x10 Mltspn 38-42mm Medtronic #[id number] Crosslink N/A: Medtronic 12/16/2026 [id number] / Implanted: Qty: 2 on 12/16/2016 by Fredrick Epps MD at [facility] Back 0 / [id number] Lens LENS Right: Rell 05/11/2020 SN60WF / Implanted: Qty: 1 on 09/30/2015 by Leonel Davis MD at [facility] 5 [id number] / [id number] Lens LENS Left: Rell 04/11/2020 SN60WF / Implanted: Qty: 1 on 10/14/2015 by Leonel Davis MD at [facility] 9 [id number] / [id number] Screw Solera 6.5x50mm Medtronic #[id number] - S0 SCREW N/A: Medtronic 09/01/2026 [id number] / Implanted: Qty: 4 on 09/01/2016 by Fredrick Epps MD at [facility] 0 / [id number] Screw, Medtronic Solara 6.5x45 #[id number] - S0 SCREW N/A: Medtronic 09/01/2026 [id number] / Implanted: Qty: 2 on 09/01/2016 by Fredrick Epps MD at [facility] 0 / [id number] Screw, Medtronic Solara 6.5x40 #[id number] - S0 SCREW N/A: Medtronic 09/01/2026 [id number] / Implanted: Qty: 2 on 09/01/2016 by Fredrick Epps MD at [facility] 0 / [id number] Screw Solera 6.5x50mm Medtronic #[id number] - S0 SCREW N/A: Medtronic [id number] / Implanted: Qty: 2 on 09/21/2016 by Fredrick Epps MD at [facility] 0 / [id number] Pedicle Screw 5.0 X 50mm SCREW N/A: Medtronic 12/16 [id number] / Implanted: Qty: 1 on 12/16/2016 by Fredrick Epps MD at [facility] Back 0 / [id number] Pedicle Screw 5.0 X 45mm SCREW N/A: Medtronic 12/16 [id number] / Implanted: Qty: 4 on 12/16/2016 by Fredrick Epps MD at [facility] Back 0 / [id number] Pedicle Screw 4.5 X 45mm SCREW N/A: Medtronic 12/16 [id number] / Implanted: Qty: 1 on 12/16/2016 by Fredrick Epps MD at [facility] Back 0 / [id number] Pedicle Screw 4.5 X 40mm SCREW N/A: Medtronic 12/16 [id number] / Implanted: Qty: 1 on 12/16/2016 by Fredrick Epps MD at [facility] Back 0 / [id number] Pedicle Screw 5.0 X 40mm SCREW N/A: Medtronic 12/16 [id number] / Implanted: Qty: 1 on 12/16/2016 by Fredrick Epps MD at [facility] Back 0 / [id number] Screw Solera 4.75 Ti Ns Break Off Medtronic #[id number] - S0 N/A: Medtronic 09/01/2026 [id number] / Implanted: Qty: 8 on 09/01/2016 by Fredrick Epps MD at [facility] 0 / [id number] Angel 4.75 Ccm Ns Curved 100mm Solera Medtronic #[id number] - S0 N/A: Medtronic 09/01/2026 [id number] / Implanted: Qty: 2 on 09/01/2016 by Fredrick Epps MD at [facility] 0 / 0 Screw Solera 4.75 Ti Ns Break Off Medtronic #[id number] - S0 N/ A: Medtronic [id number] / Implanted: Qty: 10 on 09/21/2016 by Fredrick Ziegler MD at [facility] 0 / [id number] Screw Solera 7.5x50mm Medtronic #[id number] - S0 N/A: Medtronic [id number] / Implanted: Qty: 1 on 09/21/2016 by Fredrick Epps MD at [facility] 0 / [id number] Screw Solera 8.5x45mm Mas Medtronic #[id number] - S0 N/A: Medtronic [id number] / Implanted: Qty: 1 on 09/21/2016 by Fredrick Epps MD at [facility] Sp[facility] 0 / [id number] Angel 4.81c725qf Medtronic #[id number] - S0 N/A: Medtroni c [id number] / Implanted: Qty: 1 on 09/21/2016 by Fredrick Epps MD at [facility] 0 / 0 Screw Solera 4.75 Ti Ns Break Off Medtronic #[id number] - S0 N/A: Medtronic 12/16/2026 [id number] / Implanted: Qty: 16 on 12/16/2016 by Fredrick Ziegler MD at [facility] Back 0 / [id number] Angel 4.91b305rr Medtronic #[id number] - S0 N/A: Medtroni c 12/16/2026 [id number] / Implanted: Qty: 1 on 12/16/2016 by Fredrick Epps MD at [facility] Back 0 / 0 documented as of this encounter Results Not on filedocumented in this encounter Visit Diagnoses Diagnosis Diffuse esophageal spasm Dyskinesia of esophagus documented in this encounter Additional Health Concerns Infection Onset Date Last Indicated Resolved Time Extended Contact- CDiff 10/18/2018 10/18/2018 documented as of this encounter Insurance Payer Benefit Plan / Subscriber ID Effective Phone Address T e Group Dates MEDICARE MEDICARE PART A [id number] 2015-Pres [phone] [address] [place] Medicare & B ent [phone] [id number] [place] [phone] BCBS OF BCBS [id number] 2018-Pres [phone] P O [facility] ent [phone] [place] [address] documented as of this encounter
--- OUTSIDE RECORDS SUMMARY | 2020-03-07 08:59 | XMS REPORT | Summary of Care ---
:1950 Author Organization [facility] Address [address] [place] [address] Care Team Providers Name Role Phone MD Juan David Primary Care Provider Encounter Details Date Type Department Care Team Description 01/31/2020 Patient Secure [facility] Chase Fall Insomnia, g Pediatric and Adult unspecified type Primary Care- [address] [place] [address] [address] [place] [address], [address] [address] [place], [place] [phone] [address] Allergies Active Allergy Reactions Severity Noted Date Comments Penicillins Unknown - See comments 12/03/2014 Unsur e of reaction was as a child documented as of this encounter (statuses as of 02/03/2020) Medications Medication Sig Dispensed Refills Start End Date Status Date predniSONE 10 mg Take 1 30 tablet 5 Act ailyn tabletIndications: tablet by 0 Chronic low back pain mouth daily. without sciatica, unspecified back pain laterality omeprazole 40 mg Take 1 60 capsule 2 Ac tive capsuleIndications: capsule by 0 Gastroesophageal mouth 2 reflux disease, (two) times esophagitis presence daily. not specified LORazepam 1 mg Take 1 90 tablet 5 Activ e tabletIndications: tablet by 0 Anxiety mouth 3 (three) times daily as needed for Anxiety or Agitation. FLUoxetine 20 mg TAKE ONE 90 capsule 1 Ac tive capsuleIndications: CAPSULE BY 0 Depression, MOUTH AT unspecified BEDTIME depression type estradiol 2 mg Take 1 90 tablet 1 Activ e tabletIndications: tablet by 0 Menopause mouth daily. metoclopramide HCl 10 TAKE 1 100 tablet 1 Active mg tabletIndications: TABLET BY 0 Irritable bowel MOUTH EVERY syndrome, unspecified 6 HOURS type NEEDED FOR NAUSEA OR VOMITING temazepam 30 mg TAKE 1 30 capsule 5 Act ailyn capsuleIndications: CAPSULE BY 0 Insomnia, unspecified MOUTH AT type BEDTIME NEEDED FOR INSOMNIA DILTIAZEM 60 mg TAKE ONE 240 tablet 2 Act ailyn tabletIndications: TABLET BY 0 Diffuse esophageal MOUTH FOUR spasm TIMES A DAY ACETAMINOPHEN-CODEINE TAKE ONE 180 tablet 0 Active 300-60 mg TABLET BY 0 tabletIndications: MOUTH EVERY Chronic low back pain 4 HOURS without sciatica, NEEDED FOR unspecified back pain PAIN laterality zolpidem 10 mg Take 1 30 tablet 5 Activ e tabletIndications: tablet by 0 Insomnia, unspecified mouth at type bedtime as needed for Insomnia. zolpidem 10 mg Take 1 30 tablet 5 02/03/20 Disco ntinued tabletIndications: tablet by 0 20 ( Reorder) Insomnia, unspecified mouth at type bedtime as needed for Insomnia. documented as of this encounter (statuses as of 02/03/2020) Active Problems Problem Noted Date Esophageal dysphagia 01/14/2019 Overview: Added automatically from request for omega mary [id number] Moderate protein-calorie malnutrition 01/14/2019 Overview: Added automatically from request for omega mary [id number] Weight loss, unintentional 01/14/2019 Overview: Added automatically from request for omega mary [id number] Altered mental status 11/28/2018 C. difficile diarrhea [...] as of this encounter (statuses as of 02/03/2020) Resolved Problems Problem Noted Date Resolved Date Low serum cortisol level 11/12/2014 03/11/2015 documented as of this encounter (statuses as of 02/03/2020) Social History Tobacco Use Types Packs/Day Years Used Date Former Smoker Cigarettes 1.5 8 Smokeless Tobacco: Never Used Comments: smoked from [age] years old Alcohol Use Drinks/Week oz/Week Comments Yes Sex Assigned at Date Recorded Not on file documented as of this encounter Last Filed Vital Signs Not on filedocumented in this encounter Miscellaneous Notes Telephone Encounter - Chase Fall MD - 02/03/2020 7:20 AM CDTOK, I can refill documented in this encounter Plan of Treatment [...] of this encounter Implants Implanted 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 Shelf Model / Identifier Expiration Serial / Lot Date Dbm Putty Maxxeus 10cc Cts # - [id number] BONE N/A: Co m[employer]ity 01/09/2018 / Implanted: Qty: 1 on 09/01/2016 by Fredrick Epps MD at [facility] [id number] Dbm Putty Maxxeus 10cc Cts # - [id number] BONE N/A: Co mmunity 01/09/2018 / Implanted: Qty: 1 on 09/01/2016 by Fredrcik Epps MD at [facility] [id number] Cancellous Crushed, On License Of [facility] Tissue Ser vices (1 10mm) Freeze Dried 90.0 Cc #1235-12 - [id number] BONE N/A: On License Of [facility] 11/09/20201234 / Implanted: Qty: 1 on 09/01/2016 by Fredrick Epps MD at [facility] [id number] [phone] Dbm Putty Maxxeus 10cc Cts #2017-40 - [id number] BONE N/A: On License Of [facility] 01/09/2018 / Implanted: Qty: 1 on 09/21/2016 by Fredrick Epps MD at [facility] [id number] [facility] Tissue [facility] Cancello us Crushed (1 10mm) Freeze Dried 30.0 Cc #1024-12 - [id number] BONE N/A: On License Of [facility] 05/25/2021 / Implanted: Qty: 1 on 09/21/2016 by Fredrick Epps MD at [facility] [id number] 1 [phone] [facility] Cancello us Crushed (1 10mm) Freeze Dried 30.0 Cc #1024-12 - [id number] BONE N/A: On License Of [facility] 05/25/2021 10 2412 / Implanted: Qty: 1 on 09/21/2016 by Fredrick Epps MD at [facility] [id number] [phone] Dbm Putty Maxxeus 10 Cts #2018-40 - [id number] BONE N/A: On License Of [facility] 02/09/2018 / Implanted: Qty: 1 on 12/16/2016 by Fredrick Epps MD at [facility] Back Tissue Services [id number] 3219 Cancellous Crushed, On License Of [facility] Tissue Ser vices (1 10mm) Freeze Dried 60.0 Cc #1234-12 - [id number] BONE N/A: On License Of [facility] 11/11/202112 / Implanted: Qty: 1 on 12/16/2016 by Fredrick Epps MD at [facility] [id number] -305 Cancellous Crushed, On License Of [facility] Tissue Ser vices (1 10mm) Freeze Dried 60.0 Cc #1234-12 - [id number] BONE N/A: On License Of [facility] 11/11/202112 / Implanted: Qty: 1 on 12/16/2016 by Fredrick Epps MD at [facility] Tissue [facility] 925628-07 -305 Dbm Putty Maxxeus [address] [place] [address] #2018-40 - [id number] BONE N/A: On License Of [facility] 02/09/2018 / Implanted: Qty: 1 on 12/16/2016 by Fredrick Epps MD at [facility] Tissue [facility] [id number] 0 Crosslink 4.75x10 Mltspn 38-42mm Medtronic #[id number] Crosslink N/A: Medtronic 12/16/2026 [id number] / Implanted: Qty: 2 on 12/16/2016 by Fredrick Epps MD at [facility] Back 0 / [id number] Lens LENS Right: Rell 05/11/2020 SN60WF / Implanted: Qty: 1 on 09/30/2015 by Leonel Davis MD at [facility] Eye 7 [id number] / [id number] Lens LENS Left: Rell 04/11/2020 SN60WF / Implanted: Qty: 1 on 10/14/2015 by Leonel Davis MD at [facility] 1 [id number] / [id number] Screw Solera 6.5x50mm Medtronic #[id number] - S0 SCREW N/A: Medtronic 09/01/2026 [id number] / Implanted: Qty: 4 on 09/01/2016 by Fredrick Epps MD at [facility] Spine 0 / [id number] Screw, Medtronic Solara 6.5x45 #[id number] - S0 SCREW N/A: Medtronic 09/01/2026 [id number] / Implanted: Qty: 2 on 09/01/2016 by Fredrick Epps MD at [facility] Spine 0 / [id number] Screw, Medtronic Solara 6.5x40 #[id number] - S0 SCREW N/A: Medtronic 09/01/2026 [id number] / Implanted: Qty: 2 on 09/01/2016 by Fredrick Epps MD at [facility] Spine 0 / [id number] Screw Solera 6.5x50mm Medtronic #[id number] - S0 SCREW N/A: Medtronic [id number] / Implanted: Qty: 2 on 09/21/2016 by Fredrick Epps MD at [facility] Spine 0 / [id number] Pedicle Screw 5.0 X 50mm SCREW N/A: Medtronic 12/16 [id number] / Implanted: Qty: 1 on 12/16/2016 by Fredrcik Epps MD at [facility] Back 0 / [id number] Pedicle Screw 5.0 X 45mm SCREW N/A: Medtronic 12/16 [id number] / Implanted: Qty: 4 on 12/16/2016 by Fredrick Epps MD at [facility] Back 0 / [id number] Pedicle Screw 4.5 X 45mm SCREW N/A: Medtronic 12/16 [id number] / Implanted: Qty: 1 on 12/16/2016 by Fredrick Epps MD at [facility] Back 0 / [id number] Pedicle Screw 4.5 X 40mm SCREW N/A: Medtronic 12/16 [id number] / Implanted: Qty: 1 on 12/16/2016 by Fredrick Epps MD at [facility] Back 0 / [id number] Pedicle Screw 5.0 X 40mm SCREW N/A: Medtronic 12/16 [id number] / Implanted: Qty: 1 on 12/16/2016 by Fredrick Epps MD at [facility] Back 0 / [id number] Screw Solera 4.75 Ti Ns Break Off Medtronic #[id number] - S0 N/A: Medtronic 09/01/2026 [id number] / Implanted: Qty: 8 on 09/01/2016 by Fredrick Epps MD at [facility] Spine 0 / [id number] Angel 4.75 Ccm Ns Curved 100mm Solera Medtronic #[id number] - S0 N/A: Medtronic 09/01/2026 [id number] / Implanted: Qty: 2 on 09/01/2016 by Fredrick Epps MD at [facility] Spine 0 / 0 Screw Solera 4.75 Ti Ns Break Off Medtronic #[id number] - S0 N/ A: Medtronic [id number] / Implanted: Qty: 10 on 09/21/2016 by Fredrick Ziegler MD at [facility] Spine 0 / [id number] Screw Solera 7.5x50mm Medtronic #[id number] - S0 N/A: Medtronic [id number] / Implanted: Qty: 1 on 09/21/2016 by Fredrick Epps MD at [facility] Spine 0 / [id number] Screw Solera 8.5x45mm Mas Medtronic #[id number] - S0 N/A: Medtronic [id number] / Implanted: Qty: 1 on 09/21/2016 by Fredrick Epps MD at [facility] Spine 0 / [id number] Angel [id number] Medtronic #[id number] - S0 N/A: Medtroni c [id number] / Implanted: Qty: 1 on 09/21/2016 by Fredrick Epps MD at [facility] Spine 0 / 0 Screw Solera 4.75 Ti Ns Break Off Medtronic #[id number] - S0 N/A: Medtronic 12/16/2026 [id number] / Implanted: Qty: 16 on 12/16/2016 by Fredrick Ziegler MD at [facility] Back 0 / [id number] Angel [id number] Medtronic #[id number] - S0 N/A: Medtroni c 12/16/2026 [id number] / Implanted: Qty: 1 on 12/16/2016 by Fredrick Epps MD at [facility] Back 0 / 0 documented as [...] ype Group Dates MEDICARE MEDICARE PART A [id number] 2015-Pres [phone] [address] [address] [place] X Medicare & B ent [id number] RACHEL BROWN [phone] BCBS OF BCBS [id number] 2018-Pres [phone] [facility] TRADITIONAL ent [phone] [place] [address] documented as of this encounter
--- OUTSIDE RECORDS SUMMARY | 2020-03-07 09:00 | XMS REPORT | Summary of Care ---
:1950 Author Organization [facility] Address [address] [place] [address] Care Team Providers Name Role Phone MD Juan David Primary Care Provider Encounter Details Date Type Department Care Team Description 02/19/2020 Patient Secure [facility] Pediatric Chase Fall MD and Adult Primary Care- [id number], [address] [place] [address] [phone] Allergies Active Allergy Reactions Severity Noted Date Comments Penicillins Unknown - See comments 12/03/2014 Unsur e of reaction was as a child documented as of this encounter (statuses as of 02/19/2020) Medications Medication Sig Dispensed Refills Start Date End Date Status predniSONE 10 mg Take 1 tablet 30 [...] PAIN without sciatica, unspecified back pain laterality zolpidem 10 mg Take 1 tablet 30 tablet 5 02/03/2020 Active tabletIndications: by mouth at Insomnia, unspecified bedtime as type needed for Insomnia. documented as of this encounter (statuses as of 02/19/2020) Active Problems Problem Noted Date Esophageal dysphagia 01/14/2019 Overview: Added automatically from request for omega mary [id number] Moderate protein-calorie malnutrition 01/14/2019 Overview: Added automatically from request for omega mary [id number] Weight loss, unintentional 01/14/2019 Overview: Added automatically from request for omega mary [id number] Altered mental status 11/28/2018 C. difficile diarrhea [...] as of this encounter (statuses as of 02/19/2020) Resolved Problems Problem Noted Date Resolved Date Low serum cortisol level 11/12/2014 03/11/2015 documented as of this encounter (statuses as of 02/19/2020) Social History Tobacco Use Types Packs/Day Years Used Date Former Smoker Cigarettes 1.5 8 Smokeless Tobacco: Never Used Comments: smoked from [age] years old Alcohol Use Drinks/Week oz/Week Comments Yes Sex Assigned at Date Recorded Not on file documented as of this encounter Last Filed Vital Signs Not on filedocumented in this encounter Miscellaneous Notes Telephone Encounter - Chase Fall MD - 02/19/2020 8:24 AM CDTOK documented in this encounter Plan of Treatment [...] of this encounter Implants Implanted Type 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 [id number] [id number] Dbm Putty Maxxeus 10cc Cts #2017-40 - [id number] BONE N/A: Vt mmunity 01/09/2018 / Implanted: Qty: 1 on 09/01/2016 by Fredrick Epps MD at [facility] [id number] -392 Cancellous Crushed, [facility] Tissue Ser vices (1 10mm) Freeze Dried 90.0 Cc #1235-12 - [id number] BONE N/A: [facility] 11/09/2020 123 / Implanted: Qty: 1 on 09/01/2016 by Fredrick Epps MD at [facility] [id number] 0 [phone] Dbm Putty Maxxeus 10 Cts #2017- - [id number] BONE N/A: [facility] 01/09/2018 / Implanted: Qty: 1 on 09/21/2016 by Fredrick Epps MD at [facility] [id number] 1 [facility] Tissue Services Cancello us Crushed (1 10mm) Freeze Dried 30.0 Cc #1024-12 - [id number] BONE N/A: [facility] 05/25/2021 10 Implanted: Qty: 1 on 09/21/2016 by Fredrick Epps MD at [facility] [phone] [facility] Tissue Services Cancello us Crushed (1 10mm) Freeze Dried 30.0 Cc #1024-12 - [id number] BONE N/A: [facility] 05/25/2021 10 / Implanted: Qty: 1 on 09/21/2016 by Fredrick Epps MD at [facility] [phone] [phone] Dbm Putty Maxxeus 10cc Cts #2017-40 - [id number] BONE N/A: [facility] 02/09/201840 / Implanted: Qty: 1 on 12/16/2016 by Fredrick Epps MD at [facility] Tissue Services [phone] Cancellous Crushed, [facility] Tissue Ser vices (1 10mm) Freeze Dried 60.0 Cc #1234-12 - [id number] BONE N/A: [facility] 11/11/2021 3412 / Implanted: Qty: 1 on 12/16/2016 by Fredrick Epps MD at [facility] Back Tissue Services 546694-94 3059 Cancellous Crushed, [facility] Tissue Ser vices (1 10mm) Freeze Dried 60.0 Cc #1234-12 - [id number] BONE N/A: [facility] 11/11/202112 / Implanted: Qty: 1 on 12/16/2016 by Fredrick Epps MD at [facility] Services 543676-69 9 Dbm Putty Maxxeus 10 Cts #2018-40 - [id number] BONE N/A: [facility] 02/09/2018 / Implanted: Qty: 1 on 12/16/2016 by Fredrick Epps MD at [facility] Services 284278-64 Crosslink 4.75x10 Mltspn 38-42mm Medtronic #[id number] Crosslink N/A: Medtronic 12/16/2026 [id number] / Implanted: Qty: 2 on 12/16/2016 by Fredrick Epps MD at [facility] Back 0 / [id number] Lens LENS Right: Rell 05/11/2020 SN60WF / Implanted: Qty: 1 on 09/30/2015 by Leonel Davis MD at [facility] 8 [id number] / [id number] Lens LENS Left: Rell 04/11/2020 SN60WF / Implanted: Qty: 1 on 10/14/2015 by Leonel Davis MD at [facility] Eye 0 [id number] / [id number] Screw Solera 6.5x50mm Medtronic #[id number] - S0 SCREW N/A: Medtronic 09/01/2026 [id number] / Implanted: Qty: 4 on 09/01/2016 by Fredrick Epps MD at [facility] Spine 0 / [id number] Screw, Medtronic Solara 6.5x45 #[id number] - S0 SCREW N/A: Medtronic 09/01/2026 [id number] / Implanted: Qty: 2 on 09/01/2016 by Fredrick Epps MD at [facility] Spine 0 / [id number] Screw, Medtronic Solara 6.5x40 #[id number] - S0 SCREW N/A: Medtronic 09/01/2026 [id number] / Implanted: Qty: 2 on 09/01/2016 by Fredrick Epps MD at [facility] Spine 0 / [id number] Screw Solera 6.5x50mm Medtronic #[id number] - S0 SCREW N/A: Medtronic [id number] / Implanted: Qty: 2 on 09/21/2016 by Fredrick Epps MD at [facility] Spine 0 / [id number] Pedicle Screw 5.0 X 50mm SCREW N/A: Medtronic 12/16 [id number] / Implanted: Qty: 1 on 12/16/2016 by Fredrick Epps MD at [facility] Back 0 / [id number] Pedicle Screw 5.0 X 45mm SCREW N/A: Medtronic 12/16 [id number] / Implanted: Qty: 4 on 12/16/2016 by Fredrick Epps MD at [facility] Back 0 / [id number] Pedicle Screw 4.5 X 45mm SCREW N/A: Medtronic 12/16 [id number] / Implanted: Qty: 1 on 12/16/2016 by Fredrick Epps MD at [facility] Back 0 / [id number] Pedicle Screw 4.5 X 40mm SCREW N/A: Medtronic 12/16 [id number] / Implanted: Qty: 1 on 12/16/2016 by Fredrick Epps MD at [facility] Back 0 / [id number] Pedicle Screw 5.0 X 40mm SCREW N/A: Medtronic 12/16 [id number] / Implanted: Qty: 1 on 12/16/2016 by Fredrick Epps MD at [facility] Back 0 / [id number] Screw Solera 4.75 Ti Ns Break Off Medtronic #[id number] - S0 N/A: Medtronic 09/01/2026 [id number] / Implanted: Qty: 8 on 09/01/2016 by Fredrick Epps MD at [facility] Spine 0 / [id number] Angel 4.75 Ccm Ns Curved 100mm Solera Medtronic #[id number] - S0 N/A: Medtronic 09/01/2026 [id number] / Implanted: Qty: 2 on 09/01/2016 by Fredrick Epps MD at [facility] Spine 0 / 0 Screw Solera 4.75 Ti Ns Break Off Medtronic #[id number] - S0 N/ A: Medtronic [id number] / Implanted: Qty: 10 on 09/21/2016 by Fredrick Ziegler MD at [facility] Spine 0 / [id number] Screw Solera 7.5x50mm Medtronic #[id number] - S0 N/A: Medtronic [id number] / Implanted: Qty: 1 on 09/21/2016 by Fredrick Epps MD at [facility] Spine 0 / [id number] Screw Solera 8.5x45mm Mas Medtronic #[id number] - S0 N/A: Medtronic [id number] / Implanted: Qty: 1 on 09/21/2016 by Fredrick Epps MD at [facility] Spine 0 / [id number] Angel [id number] Medtronic #[id number] - S0 N/A: Medtroni c [id number] / Implanted: Qty: 1 on 09/21/2016 by Fredrick Epps MD at [facility] Spine 0 / 0 Screw Solera 4.75 Ti Ns Break Off Medtronic #[id number] - S0 N/A: Medtronic 12/16/2026 [id number] / Implanted: Qty: 16 on 12/16/2016 by Fredrick Ziegler MD at [facility] Back 0 / [id number] Angel [id number] Medtronic #[id number] - S0 N/A: Medtroni c 12/16/2026 [id number] / Implanted: Qty: 1 on 12/16/2016 by Fredrick Epps MD at [facility] Back 0 / 0 documented as of this encounter Results Not on filedocumented in this encounter Additional Health Concerns Infection Onset Date Last Indicated Resolved Time Extended Contact- CDiff 10/18/2018 10/18/2018 documented as of this encounter Insurance Payer Benefit Plan / Subscriber ID Effective Phone Address T ype Group Dates MEDICARE MEDICARE PART A [id number] 2015-Pres [phone] [address] [place] X Medicare & B ent [phone] [id number] KEITH BERKSHIRERACHEL [phone] BCBS OF BCBS [id number] 2018-Pres [phone] [facility] TRADITIONAL ent [phone] [place] [address] documented as of this encounter
--- OUTSIDE RECORDS SUMMARY | 2020-03-07 09:00 | XMS REPORT | Summary of Care ---
:1950 Author Organization [facility] Address [address] [place] [address] Care Team Providers Name Role Phone MD Juan David Primary Care Provider Encounter Details Date Type Department Care Team Description 01/31/2020 Patient Secure [facility] Chase Fall Insomnia, g Pediatric and Adult unspecified type Primary Care- [address] [place] [address] [address] [place] [address], [address] [address] [place], [place] [phone] [address] Allergies Active Allergy Reactions Severity Noted [...] Added automatically from request for omega mary [id number] Moderate protein-calorie malnutrition 01/14/2019 Overview: Added automatically from request for omega mary [id number] Weight loss, unintentional 01/14/2019 Overview: Added automatically from request for omega mary [id number] Altered mental status 11/28/2018 C. difficile diarrhea [...] of this encounter Implants Implanted Type Area Materials Planner Device Shelf Model / Identifier Expiration Serial / Lot Date Dbm Putty Maxxeus 10cc Cts # - [id number] BONE N/A: [employer] 01/09/2018 / Implanted: Qty: 1 on 09/01/2016 by Fredrick Epps MD at [facility] [id number] Dbm Putty Maxxeus 10cc Cts # - [id number] BONE N/A: [employer]ity 01/09/2018 / Implanted: Qty: 1 on 09/01/2016 by Fredrick Epps MD at [facility] [id number] Cancellous Crushed, [facility] Tissue Ser vices (1 10mm) Freeze Dried 90.0 Cc #1235-12 - [id number] BONE N/A: [facility] 11/09/20201234 / Implanted: Qty: 1 on 09/01/2016 by Fredrick Epps MD at [facility] [id number] [phone] Dbm Putty Maxxeus 10cc Cts #2017-40 - [id number] BONE N/A: [facility] 01/09/2018 / Implanted: Qty: 1 on 09/21/2016 by Fredrick Epps MD at [facility] [id number] [facility] Tissue [facility] [place] us Crushed (1 10mm) Freeze Dried 30.0 Cc #1024-12 - [id number] BONE N/A: [facility] 05/25/2021 / Implanted: Qty: 1 on 09/21/2016 by Fredrick Epps MD at [facility] [id number] 1 [phone] [facility] [place] us Crushed (1 10mm) Freeze Dried 30.0 Cc #1024-12 - [id number] BONE N/A: [facility] 05/25/2021 10 2412 / Implanted: Qty: 1 on 09/21/2016 by Fredrick Epps MD at [facility] [phone] Dbm Putty Maxxeus 10 Cts #2018-40 - [id number] BONE N/A: [facility] 02/09/2018 / Implanted: Qty: 1 on 12/16/2016 by Fredrick Epps MD at [facility] [phone] Cancellous Crushed, [facility] Tissue Ser vices (1 10mm) Freeze Dried 60.0 Cc #1234-12 - [id number] BONE N/A: [facility] 11/11/202112 / Implanted: Qty: 1 on 12/16/2016 by Fredrick Epps MD at [facility] [id number] -305 Cancellous Crushed, [facility] Tissue Ser vices (1 10mm) Freeze Dried 60.0 Cc #1234-12 - [id number] BONE N/A: [facility] 11/11/202112 / Implanted: Qty: 1 on 12/16/2016 by Fredrick Epps MD at [facility] [id number] -305 Dbm Putty Maxxeus [address] [place] [address] #2018-40 - [id number] BONE N/A: [facility] 02/09/2018 / Implanted: Qty: 1 on 12/16/2016 by Fredrick Epps MD at [facility] [id number] 0 Crosslink 4.75x10 Mltspn 38-42mm Medtronic #[id number] Crosslink N/A: Medtronic 12/16/2026 [id number] / Implanted: Qty: 2 on 12/16/2016 by Fredrick Epps MD at [facility] Back 0 / [id number] Lens LENS Right: Rell 05/11/2020 SN60WF / Implanted: Qty: 1 on 09/30/2015 by Leonel Davis MD at [facility] 3 [id number] / [id number] Lens LENS Left: Rell 04/11/2020 SN60WF / Implanted: Qty: 1 on 10/14/2015 by Leonel Davis MD at [facility] 8 [id number] / [id number] Screw Solera 6.5x50mm Medtronic #[id number] - S0 SCREW N/A: Medtronic 09/01/2026 [id number] / Implanted: Qty: 4 on 09/01/2016 by Fredrick Epps MD at [facility] Spine 0 / [id number] Screw, Medtronic Solara 6.5x45 #[id number] - S0 SCREW N/A: Medtronic 09/01/2026 [id number] / Implanted: Qty: 2 on 09/01/2016 by Fredrick Epps MD at [facility] Sp[facility] 0 / [id number] Screw, Medtronic Solara 6.5x40 #[id number] - S0 SCREW N/A: Medtronic 09/01/2026 [id number] / Implanted: Qty: 2 on 09/01/2016 by Fredrick Epps MD at [facility] Sp[facility] 0 / [id number] Screw Solera 6.5x50mm Medtronic #[id number] - S0 SCREW N/A: Medtronic [id number] / Implanted: Qty: 2 on 09/21/2016 by Fredrick Epps MD at [facility] Sp[facility] 0 / [id number] Pedicle Screw 5.0 X 50mm SCREW N/A: Medtronic 12/16 [id number] / Implanted: Qty: 1 on 12/16/2016 by Fredrick Epps MD at [facility] Back 0 / [id number] Pedicle Screw 5.0 X 45mm SCREW N/A: Medtronic 12/16 [id number] / Implanted: Qty: 4 on 12/16/2016 by Fredrick Epps MD at [facility] Back 0 / [id number] Pedicle Screw 4.5 X 45mm SCREW N/A: Medtronic 12/16 [id number] / Implanted: Qty: 1 on 12/16/2016 by Fredrick Epps MD at [facility] Back 0 / [id number] Pedicle Screw 4.5 X 40mm SCREW N/A: Medtronic 12/16 [id number] / Implanted: Qty: 1 on 12/16/2016 by Fredrick Epps MD at [facility] Back 0 / [id number] Pedicle Screw 5.0 X 40mm SCREW N/A: Medtronic 12/16 [id number] / Implanted: Qty: 1 on 12/16/2016 by Fredrick Epps MD at [facility] Back 0 / [id number] Screw Solera 4.75 Ti Ns Break Off Medtronic #[id number] - S0 N/A: Medtronic 09/01/2026 [id number] / Implanted: Qty: 8 on 09/01/2016 by Fredrick Epps MD at [facility] Sp[facility] 0 / [id number] Angel 4.75 Ccm Ns Curved 100mm Solera Medtronic #[id number] - S0 N/A: Medtronic 09/01/2026 [id number] / Implanted: Qty: 2 on 09/01/2016 by Fredrick Epps MD at [facility] Spine 0 / 0 Screw Solera 4.75 Ti Ns Break Off Medtronic #[id number] - S0 N/ A: Medtronic [id number] / Implanted: Qty: 10 on 09/21/2016 by Fredrick Ziegler MD at [facility] Sp[facility] 0 / [id number] Screw Solera 7.5x50mm Medtronic #[id number] - S0 N/A: Medtronic [id number] / Implanted: Qty: 1 on 09/21/2016 by Fredrick Epps MD at [facility] Sp[facility] 0 / [id number] Screw Solera 8.5x45mm Mas Medtronic #[id number] - S0 N/A: Medtronic [id number] / Implanted: Qty: 1 on 09/21/2016 by Fredrick Epps MD at [facility] Sp[facility] 0 / [id number] Angel 4.45l961cm Medtronic #[id number] - S0 N/A: Medtroni c [id number] / Implanted: Qty: 1 on 09/21/2016 by Fredrick Epps MD at [facility] Sp[facility] 0 / 0 Screw Solera 4.75 Ti Ns Break Off Medtronic #[id number] - S0 N/A: Medtronic 12/16/2026 [id number] / Implanted: Qty: 16 on 12/16/2016 by Fredrick Ziegler MD at [facility] Back 0 / [id number] Angel 4.56l119oi Medtronic #[id number] - S0 N/A: Medtroni c 12/16/2026 [id number] / Implanted: Qty: 1 on 12/16/2016 by Fredrick Epps MD at [facility] Back 0 / 0 documented as [...] ype Group Dates MEDICARE MEDICARE PART A [id number] 2015-Pres [phone] P. O. HENNY X Medicare & B ent [id number] RACHEL BROWN [address] BCBS OF BCBS [id number] 2018-Pres [phone] O BOX [facility] TRADITIONAL ent [phone] [place] [address] documented as of this encounter
--- OUTSIDE RECORDS SUMMARY | 2020-03-07 09:00 | XMS REPORT | Summary of Care ---
:1950 Author Organization [facility] Address [address] [place] [address] Care Team Providers Name Role Phone MD Earl Primary Care Provider Encounter Details Date Type Department Care Team Description 02/20/2020 Patient Secure [facility] Chase Fall Insomnia, g Pediatric and Adult unspecified type Primary Care- [address] [place] [address] [address] [place] [address], [address] [address] [place], [place] [phone] Allergies Active Allergy Reactions Severity Noted Date Comments Penicillins Unknown - See comments 12/03/2014 Unsur e of reaction was as a child documented as of this encounter (statuses as of 02/20/2020) Medications Medication Sig Dispensed Refills Start End [...] 10 mg Take 1 30 tablet 5 02/20/20 Disco ntinued tabletIndications: tablet by 0 20 ( Reorder) Insomnia, unspecified mouth at type bedtime as needed for Insomnia. documented as of this encounter (statuses as of 02/20/2020) Active Problems Problem Noted Date Esophageal dysphagia 01/14/2019 Overview: Added automatically from request for omega mary [id number] Moderate protein-calorie malnutrition 01/14/2019 Overview: Added automatically from request for omega mary [id number] Weight loss, unintentional 01/14/2019 Overview: Added automatically from request for omega mary [id number] Altered mental status 11/28/2018 C. difficile diarrhea [...] as of this encounter (statuses as of 02/20/2020) Resolved Problems Problem Noted Date Resolved Date Low serum cortisol level 11/12/2014 03/11/2015 documented as of this encounter (statuses as of 02/20/2020) Social History Tobacco Use Types Packs/Day Years Used Date Former Smoker Cigarettes 1.5 8 Smokeless Tobacco: Never Used Comments: smoked from [age] years old Alcohol Use Drinks/Week oz/Week Comments Yes Sex Assigned at Date Recorded Not on file documented as of this encounter Last Filed Vital Signs Not on filedocumented in this encounter Miscellaneous Notes Telephone Encounter - Brianne [place] LVN - 02/20/2020 8:35 AM CDT zolpidem 10 mg tablet 30 tablet 5 02/03/2020 can EARL Nettles REFILL MY AMBIEN AT [facility]. [facility] is once again out of stock and it is due for refilling, Thank you, Zunilda Jason [facility] [place] [place] [address] Recent Visits Date Type Provider Dept 11/27/19 Office Visit Chase Fall MD [facility] Family Medicine 08/29/19 Office Visit Chase Fall MD [facility] Fam Med Pob1 04/15/19 Office Visit Chase Fall MD [facility] Fam Med Pob1 01/07/19 Office Visit Chase Fall MD [facility]am Med Pob1 09/13/18 Office Visit Chase Fall MD [facility] Fam Med Pob1 Showing recent visits within past 540 days with a meds authorizing provider and meeting all other requirements Future Appointments No visits were found meeting these conditions. Showing future appointments within next 150 days with a meds authorizing provider and meeting all other requirements documented in this encounter Plan of Treatment [...] of this encounter Implants Implanted Type Area Hospice Clinical Supervisor Device Shelf Model / Identifier Expiration Serial / Lot Date Dbm Putty Maxxeus 10cc Cts #2017-40 - [id number] BONE N/A: [employer] 01/09/20182017- / Implanted: Qty: 1 on 09/01/2016 by Fredrick Epps MD at [facility] [id number] Dbm Putty Maxxeus 10cc Cts #2017-40 - [id number] BONE N/A: [employer] 01/09/2018 / Implanted: Qty: 1 on 09/01/2016 by Fredrick Epps MD at [facility] [id number] Cancellous Crushed, [facility] (1 10mm) Freeze Dried 90.0 Cc #1235-12 - [id number] BONE N/A: Community 11/09/2020 1235 -12 / Implanted: Qty: 1 on 09/01/2016 by Fredrick Epps MD at [facility] [phone] Dbm Putty Maxxeus 10cc Cts #2017-40 - [id number] BONE N/A: [facility] 01/09/2018 / Implanted: Qty: 1 on 09/21/2016 by Fredrick Epps MD at [facility] [id number] -[phone] [facility] Canc[place] us Crushed (1 10mm) Freeze Dried 30.0 Cc #1024-12 - [id number] BONE N/A: [facility] 05/25/2021 10 / Implanted: Qty: 1 on 09/21/2016 by Fredrick Epps MD at [facility] [phone] [facility] Canc[place] us Crushed (1 10mm) Freeze Dried 30.0 Cc #1024-12 - [id number] BONE N/A: [facility] 05/25/2021 10 / Implanted: Qty: 1 on 09/21/2016 by Fredrick Epsp MD at [facility] [phone] Dbm Putty Maxxeus 10cc Cts #2017-40 - [id number] BONE N/A: [facility] 02/09/2018 / Implanted: Qty: 1 on 12/16/2016 by Fredrick Epps MD at [facility] 975511-12 [phone] Cancellous Crushed, [facility] Tissue Ser vices (1 10mm) Freeze Dried 60.0 Cc #1234-12 - [id number] BONE N/A: [facility] 11/11/2021 12 / Implanted: Qty: 1 on 12/16/2016 by Fredrick Epps MD at [facility] 274423-75 -305 Cancellous Crushed, [facility] Tissue Ser vices (1 10mm) Freeze Dried 60.0 Cc #1234-12 - [id number] BONE N/A: [facility] 11/11/2021 12 34-12 / Implanted: Qty: 1 on 12/16/2016 by Fredrick Epps MD at [facility] 127551-56 -[phone] Dbm Putty Maxxeus 10cc Cts #2018-40 - [id number] BONE N/A: [facility] 02/09/2018 / Implanted: Qty: 1 on 12/16/2016 by Fredrick Epps MD at [facility] 223890-60 [phone] Crosslink 4.75x10 Mltspn 38-42mm Medtronic #[id number] Crosslink N/A: Medtronic 12/16/2026 [id number] / Implanted: Qty: 2 on 12/16/2016 by Fredrick Epps MD at [facility] Back 0 / [id number] Lens LENS Right: Rell 05/11/2020 SN60WF / Implanted: Qty: 1 on 09/30/2015 by Leonel Davis MD at [facility] 2 [id number] / [id number] Lens LENS Left: Rell 04/11/2020 SN60WF / Implanted: Qty: 1 on 10/14/2015 by Leonel Davis MD at [facility] 6 [id number] / [id number] Screw Solera 6.5x50mm Medtronic #[id number] - S0 SCREW N/A: Medtronic 09/01/2026 [id number] / Implanted: Qty: 4 on 09/01/2016 by Fredrick Epps MD at [facility] Sp[facility] 0 / [id number] Screw, Medtronic Solara 6.5x45 #[id number] - S0 SCREW N/A: Medtronic 09/01/2026 [id number] / Implanted: Qty: 2 on 09/01/2016 by Fredrick Epps MD at [facility] Sp[facility] 0 / [id number] Screw, Medtronic Solara 6.5x40 #[id number] - S0 SCREW N/A: Medtronic 09/01/2026 [id number] / Implanted: Qty: 2 on 09/01/2016 by Fredrick Epps MD at [facility] 0 / [id number] Screw Solera 6.5x50mm Medtronic #[id number] - S0 SCREW N/A: Medtronic [id number] / Implanted: Qty: 2 on 09/21/2016 by Fredrick Epps MD at [facility] 0 / [id number] Pedicle Screw 5.0 X 50mm SCREW N/A: Medtronic 12/16 [id number] / Implanted: Qty: 1 on 12/16/2016 by Fredrick Epps MD at [facility] Back 0 / [id number] Pedicle Screw 5.0 X 45mm SCREW N/A: Medtronic 12/16 [id number] / Implanted: Qty: 4 on 12/16/2016 by Fredrick Epps MD at [facility] Back 0 / [id number] Pedicle Screw 4.5 X 45mm SCREW N/A: Medtronic 12/16 [id number] / Implanted: Qty: 1 on 12/16/2016 by Fredrick Epps MD at [facility] Back 0 / [id number] Pedicle Screw 4.5 X 40mm SCREW N/A: Medtronic 12/16 [id number] / Implanted: Qty: 1 on 12/16/2016 by Fredrick Epps MD at [facility] Back 0 / [id number] Pedicle Screw 5.0 X 40mm SCREW N/A: Medtronic 12/16 [id number] / Implanted: Qty: 1 on 12/16/2016 by Fredrick Epps MD at [facility] Back 0 / [id number] Screw Solera 4.75 Ti Ns Break Off Medtronic #[id number] - S0 N/A: Medtronic 09/01/2026 [id number] / Implanted: Qty: 8 on 09/01/2016 by Fredrick Epps MD at [facility] 0 / [id number] Angel 4.75 Ccm Ns Curved 100mm Solera Medtronic #[id number] - S0 N/A: Medtronic 09/01/2026 [id number] / Implanted: Qty: 2 on 09/01/2016 by Fredrick Epps MD at [facility] 0 / 0 Screw Solera 4.75 Ti Ns Break Off Medtronic #[id number] - S0 N/ A: Medtronic [id number] / Implanted: Qty: 10 on 09/21/2016 by Fredrick Ziegler MD at [facility] 0 / [id number] Screw Solera 7.5x50mm Medtronic #[id number] - S0 N/A: Medtronic [id number] / Implanted: Qty: 1 on 09/21/2016 by Fredrick Epps MD at [facility] 0 / [id number] Screw Solera 8.5x45mm Mas Medtronic #[id number] - S0 N/A: Medtronic [id number] / Implanted: Qty: 1 on 09/21/2016 by Fredrick Epps MD at [facility] 0 / [id number] Angel 4.51j713qg Medtronic #[id number] - S0 N/A: Medtroni c [id number] / Implanted: Qty: 1 on 09/21/2016 by Fredrick Epps MD at [facility] 0 / 0 Screw Solera 4.75 Ti Ns Break Off Medtronic #[id number] - S0 N/A: Medtronic 12/16/2026 [id number] / Implanted: Qty: 16 on 12/16/2016 by Fredrick Ziegler MD at [facility] Back 0 / [id number] Angel 4.00y109ip Medtronic #[id number] - S0 N/A: Medtroni c 12/16/2026 [id number] / Implanted: Qty: 1 on 12/16/2016 by Fredrick Epps MD at [facility] Back 0 / 0 documented [...] ype Group Dates MEDICARE MEDICARE PART A [id number] 2015-Pres [phone] P. O. HENNY X Medicare & B ent [id number] RACHEL BROWN [id number] BCBS OF BCBS [id number] 2018-Pres [phone] P O [facility] TRADITIONAL ent [id number] [place] [address] documented as of this encounter
--- OUTSIDE RECORDS SUMMARY | 2020-03-07 09:01 | XMS REPORT | Summary of Care ---
:1950 Author Organization [facility] - [facility] Address [address] [place] [address] Care Team Providers Name Role Phone MD Juan David Primary Care Provider Reason for Visit Reason Onset Date Comments Refill Request 02/23/2020 Encounter Details Date Type Department Care Team Description 02/23/2020 Refill [facility] Pediatric and Doctor Unassign ed, No Refill Request Adult Primary Care- [place] Name [address] [facility], [address] [place] [address] [address] [place] [address] [place] [address] Allergies Active Allergy Reactions Severity Noted Date Comments Penicillins Unknown - See comments 12/03/2014 Unsur e of reaction was as a child documented as of this encounter (statuses as of 02/24/2020) Medications Medication Sig Dispensed Refills Start End [...] esophageal MOUTH FOUR spasm TIMES A DAY zolpidem 10 mg Take 1 30 tablet 5 Activ e tabletIndications: tablet by 0 Insomnia, unspecified mouth at type bedtime as needed for Insomnia. acetaminophen-codeine Take 1 180 tablet 0 Active 300-60 mg tablet by 0 tabletIndications: mouth every chronic pain 4 (four) hours as needed for Pain. Indications: chronic pain ACETAMINOPHEN-CODEINE TAKE ONE 180 tablet 0 0 Discontinued 300-60 mg TABLET BY 0 20 (Reorder) tabletIndications: MOUTH EVERY Chronic low back pain 4 HOURS without sciatica, NEEDED FOR unspecified back pain PAIN laterality documented as of this encounter (statuses as of 02/24/2020) Active Problems Problem Noted Date Esophageal dysphagia 01/14/2019 Overview: Added automatically from request for omega mary [id number] Moderate protein-calorie malnutrition 01/14/2019 Overview: Added automatically from request for omega mary [id number] Weight loss, unintentional 01/14/2019 Overview: Added automatically from request for omega mary [id number] Altered mental status 11/28/2018 C. difficile diarrhea [...] as of this encounter (statuses as of 02/24/2020) Resolved Problems Problem Noted Date Resolved Date Low serum cortisol level 11/12/2014 03/11/2015 documented as of this encounter (statuses as of 02/24/2020) Social History Tobacco Use Types Packs/Day Years Used Date Former Smoker Cigarettes 1.5 8 Smokeless Tobacco: Never Used Comments: smoked from [age] years old Alcohol Use Drinks/Week oz/Week Comments Yes Sex Assigned at Date Recorded Not on file documented as of this encounter Last Filed Vital Signs Not on filedocumented in this encounter Miscellaneous Notes Telephone Encounter - Brianne Anderson LVN - 02/24/2020 8:07 AM CDT 4 weeks ago (01/27/2020) ACETAMINOPHEN-CODEINE 300-60 mg tablet [place] [address] Recent Visits Date Type Provider Dept Adc Family Medicine 08/29/19 Office Visit Chase Fall MD [facility] C[facility] Fam Med Pob1 04/15/19 Office Visit Chase Fall MD [facility] Fam Med Pob1 01/07/19 Office Visit Chase Fall MD [facility] Fam Med Pob1 09/13/18 Office Visit Chase Fall MD [facility] Fam Med Pob1 Showing recent visits within [...] of this encounter Implants Implanted Type Area Fishing Vessel Deckhand Device Shelf Model / Identifier Expiration Serial / Lot Date Dbm Putty Maxxeus 10cc Cts #2017-40 - [id number] BONE N/A: Co mmunity 01/09/2018 / Implanted: Qty: 1 on 09/01/2016 by Fredrick Epps MD at [facility] [phone] Dbm Putty Maxxeus 10cc Cts #2017-40 - [id number] BONE N/A: Co mmunity 01/09/2018 / Implanted: Qty: 1 on 09/01/2016 by Fredrick Epps MD at [facility] [phone] Cancellous Crushed, Community Tissue Ser vices (1 10mm) Freeze Dried 90.0 Cc #1235-12 - [id number] BONE N/A: Community 11/09/2020 1235 -12 / Implanted: Qty: 1 on 09/01/2016 by Fredrick Epps MD at [facility] [phone] Dbm Putty Maxxeus 10cc Cts #2017-40 - [id number] BONE N/A: [facility] 01/09/20182017- / Implanted: Qty: 1 on 09/21/2016 by Fredrick Epps MD at [facility] [phone] [facility] [place] us Crushed (1 10mm) Freeze Dried 30.0 Cc #1024-12 - [id number] BONE N/A: [facility] 05/25/2021 Implanted: Qty: 1 on 09/21/2016 by Fredrick Epps MD at [facility] [phone] [facility] [place] us Crushed (1 10mm) Freeze Dried 30.0 Cc #1024-12 - [id number] BONE N/A: [facility] 05/25/2021 10 Implanted: Qty: 1 on 09/21/2016 by Fredrick Epps MD at [facility] [phone] Dbm Putty Maxxeus 10cc Cts #2018-40 - [id number] BONE N/A: [facility] 02/09/2018 / Implanted: Qty: 1 on 12/16/2016 by Fredrick Epps MD at [facility] [phone] Cancellous Crushed, [facility] Tissue Ser vices (1 10mm) Freeze Dried 60.0 Cc #1234-12 - [id number] BONE N/A: [facility] 11/11/202112 / Implanted: Qty: 1 on 12/16/2016 by Fredrick Epps MD at [facility] [phone] Cancellous Crushed, [facility] Tissue Ser vices (1 10mm) Freeze Dried 60.0 Cc #1234-12 - [id number] BONE N/A: [facility] 11/11/2021 3412 / Implanted: Qty: 1 on 12/16/2016 by Fredrick Epps MD at [facility] [phone] Dbm Putty Octavioxeus 10cc Cts #2018-40 - [id number] BONE N/A: Community 02/09/20182017-40 / Implanted: Qty: 1 on 12/16/2016 by Fredrick Epps MD at [facility] [phone] Crosslink 4.75x10 Mltspn 38-42mm Medtronic #[id number] Crosslink N/A: Medtronic 12/16/2026 [id number] / Implanted: Qty: 2 on 12/16/2016 by Fredrick pEps MD at [facility] Back 0 / [id number] Lens LENS Right: Rell 05/11/2020 SN60WF / Implanted: Qty: 1 on 09/30/2015 by Leonel Davis MD at [facility] 7 [id number] / [id number] Lens LENS Left: Rell 04/11/2020 SN60WF / Implanted: Qty: 1 on 10/14/2015 by Leonel Davis MD at [facility] 7 [id number] / [id number] Screw Solera 6.5x50mm Medtronic #[id number] - S0 SCREW N/A: Medtronic 09/01/2026 [id number] / Implanted: Qty: 4 on 09/01/2016 by Fredrick Epps MD at [facility] 0 / [id number] Screw, Medtronic Solara 6.5x45 #[id number] - S0 SCREW N/A: Medtronic 09/01/2026 [id number] / Implanted: Qty: 2 on 09/01/2016 by Fredrick Epps MD at [facility] 0 / [id number] Screw, Medtronic Solara 6.5x40 #[id number] - S0 SCREW N/A: Medtronic 09/01/2026 [id number] / Implanted: Qty: 2 on 09/01/2016 by Fredrick Epps MD at [facility] 0 / [id number] Screw Solera 6.5x50mm Medtronic #[id number] - S0 SCREW N/A: Medtronic [id number] / Implanted: Qty: 2 on 09/21/2016 by Fredrick Epps MD at [facility] 0 / [id number] Pedicle Screw 5.0 X 50mm SCREW N/A: Medtronic 12/16 [id number] / Implanted: Qty: 1 on 12/16/2016 by Fredrick Epps MD at [facility] 0 / [id number] Pedicle Screw 5.0 X 45mm SCREW N/A: Medtronic 12/16 [id number] / Implanted: Qty: 4 on 12/16/2016 by Fredrick Epps MD at [facility] 0 / [id number] Pedicle Screw 4.5 X 45mm SCREW N/A: Medtronic 12/16 [id number] / Implanted: Qty: 1 on 12/16/2016 by Fredrick Epps MD at [facility] 0 / [id number] Pedicle Screw 4.5 X 40mm SCREW N/A: Medtronic 12/16 [id number] / Implanted: Qty: 1 on 12/16/2016 by Fredrick Epps MD at [facility] 0 / [id number] Pedicle Screw 5.0 X 40mm SCREW N/A: Medtronic 12/16 [id number] / Implanted: Qty: 1 on 12/16/2016 by Fredrick Epps MD at [facility] 0 / [id number] Screw Solera 4.75 Ti Ns Break Off Medtronic #[id number] - S0 N/A: Medtronic 09/01/2026 [id number] / Implanted: Qty: 8 on 09/01/2016 by Fredrick Epps MD at [facility] 0 / [id number] Angel 4.75 Ccm Ns Curved 100mm Solera Medtronic #[id number] - S0 N/A: Medtronic 09/01/2026 [id number] / Implanted: Qty: 2 on 09/01/2016 by Fredrick Epps MD at [facility] / 0 Screw Solera 4.75 Ti Ns Break Off Medtronic #[id number] - S0 N/ A: Medtronic [id number] / Implanted: Qty: 10 on 09/21/2016 by Fredrick Ziegler MD at [facility] / [id number] Screw Solera 7.5x50mm Medtronic #[id number] - S0 N/A: Medtronic [id number] / Implanted: Qty: 1 on 09/21/2016 by Fredrick Epps MD at [facility] / [id number] Screw Solera 8.5x45mm Mas Medtronic #[id number] - S0 N/A: Medtronic [id number] / Implanted: Qty: 1 on 09/21/2016 by Fredrick Epps MD at [facility] / [id number] Angel 4.81q912zp Medtronic #[id number] - S0 N/A: Medtroni c [id number] / Implanted: Qty: 1 on 09/21/2016 by Fredrick Epps MD at [facility] / 0 Screw Solera 4.75 Ti Ns Break Off Medtronic #[id number] - S0 N/A: Medtronic 12/16/2026 [id number] / Implanted: Qty: 16 on 12/16/2016 by Fredrick Ziegler MD at [facility] 0 / [id number] Angel 4.67i343sj Medtronic #[id number] - S0 N/A: Medtroni c 12/16/2026 [id number] / Implanted: Qty: 1 on 12/16/2016 by Fredrick Epps MD at [facility] 0 / 0 documented as [...] ype Group Dates MEDICARE MEDICARE PART A [id number] 2015-Pres [phone] P. O. HENNY X Medicare & B ent [id number] RACHEL BROWN [address] BCBS OF BCBS [id number] 2018-Pres [phone] O [facility] ent [phone] [place] [address] documented as of this encounter
--- OUTSIDE RECORDS SUMMARY | 2020-03-07 09:01 | XMS REPORT | Summary of Care ---
:1950 Author Organization [facility] Address [address] [place] [address] Care Team Providers Name Role Phone MD Juan David Primary Care Provider Reason for Visit Reason Onset Date Comments Refill Request 02/23/2020 Encounter Details Date Type Department Care Team Description 02/23/2020 Refill [facility] Family Medicine Doctor Simone arceo, No Refill Request - [place] Name [address] [place] [address] [place] [address] Allergies Active Allergy Reactions Severity Noted Date [...] (two) times esophagitis presence daily. not specified FLUoxetine 20 mg TAKE ONE 90 capsule [...] as needed for Pain. Indications: chronic pain LORazepam 1 mg Take 1 90 tablet 5 Activ e tabletIndications: tablet by 0 Anxiety mouth 3 (three) times daily as needed for Anxiety or Agitation. LORazepam 1 mg Take 1 90 tablet 5 02/23/20 Disco ntinued tabletIndications: tablet by 0 20 ( Reorder) Anxiety mouth 3 (three) times daily as needed for Anxiety or Agitation. documented as of this encounter (statuses as of 02/24/2020) Active Problems Problem Noted Date Esophageal dysphagia 01/14/2019 Overview: Added automatically from request for omega mary [id number] Moderate protein-calorie malnutrition 01/14/2019 Overview: Added automatically from request for omega mary [id number] Weight loss, unintentional 01/14/2019 Overview: Added automatically from request for omega mary [id number] Altered mental status 11/28/2018 C. difficile diarrhea [...] Encounter - Brianne Anderson LVN - 02/24/2020 8:09 AM CDT 5 months ago (08/29/2019) LORazepam 1 mg tablet [id number] [place] [address] [address] [employer] [facility] [employer] Recent Visits Date Type Provider Dept Adc Family Medicine 08/29/19 Office Visit Chase Fall MD [facility] Cbc Fam Med Pob1 04/15/19 Office Visit Chase aFll MD [facility] Cbc Fam Med Pob1 01/07/19 Office Visit Chase Fall MD [facility] Cbc Fam Med Pob1 09/13/18 Office Visit Chase Fall MD [facility] Fam Med Pob1 Showing recent visits within [...] of this encounter Implants Implanted Type Area Jackhammer Splitter Operator Device Shelf Model / Identifier Expiration Serial / Lot Date Dbm Putty Maxxeus 10cc Cts #2017-40 - [id number] BONE N/A: Co mmunity 01/09/20182017- / Implanted: Qty: 1 on 09/01/2016 by Fredrick Epps MD at [facility] [phone] Dbm Putty Maxxeus 10cc Cts #2017-40 - [id number] BONE N/A: Co mmunity 01/09/2018 / Implanted: Qty: 1 on 09/01/2016 by Fredrick Epps MD at [facility] [phone] Cancellous Crushed, Community Tissue Ser vices (1 10mm) Freeze Dried 90.0 Cc #1235-12 - [id number] BONE N/A: Community 11/09/2020 1235 -12 / Implanted: Qty: 1 on 09/01/2016 by Fredrick Epps MD at [facility] [phone] / [id number] Dbm Putty Maxxeus 10cc Cts #2018-40 - [id number] BONE N/A: [facility] 01/09/20182017-40 / Implanted: Qty: 1 on 09/21/2016 by Fredrick Epps MD at [facility] [phone] [facility] Cancello us Crushed (1 10mm) Freeze Dried 30.0 Cc #1024-12 - [id number] BONE N/A: [facility] 05/25/2021 Implanted: Qty: 1 on 09/21/2016 by Fredrick Epps MD at [facility] [phone] [facility], [facility] Tissue [facility] Cancello us Crushed (1 10mm) Freeze Dried 30.0 Cc #1024-12 - [id number] BONE N/A: [facility] 05/25/2021 10 Implanted: Qty: 1 on 09/21/2016 by Fredrick Epps MD at [facility] 258732-30 -311 Dbm Putty Maxxeus 10cc Cts #2018-40 - [id number] BONE N/A: [facility] 02/09/2018 / Implanted: Qty: 1 on 12/16/2016 by Fredrick Epps MD at [facility] [phone] Cancellous Crushed, [facility] Tissue Ser vices (1 10mm) Freeze Dried 60.0 Cc #1234-12 - [id number] BONE N/A: [facility] 11/11/2021 34 / Implanted: Qty: 1 on 12/16/2016 by Fredrick Epps MD at [facility] [phone] Cancellous Crushed, Community Tissue Ser vices (1 10mm) Freeze Dried 60.0 Cc #1234-12 - [id number] BONE N/A: [facility] 11/11/2021 3412 / Implanted: Qty: 1 on 12/16/2016 by Fredrick Epps MD at [facility] [phone] [id number] Dbm Putmaty Cunninghamxeus 10cc Cts #2018-40 - [id number] BONE N/A: Community 02/09/20182017- / Implanted: Qty: 1 on 12/16/2016 by Fredrick Epps MD at [facility] [phone] Crosslink 4.75x10 Mltspn 38-42mm Medtronic #[id number] Crosslink N/A: Medtronic 12/16/2026 [id number] / Implanted: Qty: 2 on 12/16/2016 by Fredrick Epps MD at [facility] Back 0 / [id number] Lens LENS Right: Rell 05/11/2020 SN60WF / Implanted: Qty: 1 on 09/30/2015 by Leonel Davis MD at [facility] 2 [id number] / [id number] Lens LENS Left: Rell 04/11/2020 SN60WF / Implanted: Qty: 1 on 10/14/2015 by Leonel Davis MD at [facility] 3 [id number] / [id number] Screw Solera 6.5x50mm Medtronic #[id number] - S0 SCREW N/A: Medtronic 09/01/2026 [id number] / Implanted: Qty: 4 on 09/01/2016 by Fredrick Epps MD at [facility] / [id number] Screw, Medtronic Solara 6.5x45 #[id number] - S0 SCREW N/A: Medtronic 09/01/2026 [id number] / Implanted: Qty: 2 on 09/01/2016 by Fredrick Epps MD at [facility] / [id number] Screw, Medtronic Solara 6.5x40 #[id number] - S0 SCREW N/A: Medtronic 09/01/2026 [id number] / Implanted: Qty: 2 on 09/01/2016 by Fredrick Epps MD at [facility] / [id number] Screw Solera 6.5x50mm Medtronic #[id number] - S0 SCREW N/A: Medtronic [id number] / Implanted: Qty: 2 on 09/21/2016 by Fredrick Epps MD at [facility] 0 / [id number] Pedicle Screw 5.0 X 50mm SCREW N/A: Medtronic 12/16 [id number] / Implanted: Qty: 1 on 12/16/2016 by Fredrick Epps MD at [facility] Back 0 / [id number] Pedicle Screw 5.0 X 45mm SCREW N/A: Medtronic 12/16 [id number] / Implanted: Qty: 4 on 12/16/2016 by Fredrick Epps MD at [facility] Back 0 / [id number] Pedicle Screw 4.5 X 45mm SCREW N/A: Medtronic 12/16 [id number] / Implanted: Qty: 1 on 12/16/2016 by Fredrick Epps MD at [facility] Back 0 / [id number] Pedicle Screw 4.5 X 40mm SCREW N/A: Medtronic 12/16 [id number] / Implanted: Qty: 1 on 12/16/2016 by Fredrick Epps MD at [facility] Back 0 / [id number] Pedicle Screw 5.0 X 40mm SCREW N/A: Medtronic 12/16 [id number] / Implanted: Qty: 1 on 12/16/2016 by Fredrick Epps MD at [facility] Back 0 / [id number] Screw Solera 4.75 Ti Ns Break Off Medtronic #[id number] - S0 N/A: Medtronic 09/01/2026 [id number] / Implanted: Qty: 8 on 09/01/2016 by Fredrick Epps MD at [facility] 0 / [id number] Angel 4.75 Ccm Ns Curved 100mm Solera Medtronic #[id number] - S0 N/A: Medtronic 09/01/2026 [id number] / Implanted: Qty: 2 on 09/01/2016 by Fredrick Epps MD at [facility] 0 / 0 Screw Solera 4.75 Ti Ns Break Off Medtronic #[id number] - S0 N/ A: Medtronic [id number] / Implanted: Qty: 10 on 09/21/2016 by Fredrick Ziegler MD at [facility] 0 / [id number] Screw Solera 7.5x50mm Medtronic #[id number] - S0 N/A: Medtronic [id number] / Implanted: Qty: 1 on 09/21/2016 by Fredrick Epps MD at [facility] 0 / [id number] Screw Solera 8.5x45mm Mas Medtronic #[id number] - S0 N/A: Medtronic [id number] / Implanted: Qty: 1 on 09/21/2016 by Fredrick Epps MD at [facility] 0 / [id number] Angel 4.75b641nk Medtronic #[id number] - S0 N/A: Medtroni c [id number] / Implanted: Qty: 1 on 09/21/2016 by Fredrick Epps MD at [facility] 0 / 0 Screw Solera 4.75 Ti Ns Break Off Medtronic #[id number] - S0 N/A: Medtronic 12/16/2026 [id number] / Implanted: Qty: 16 on 12/16/2016 by Fredrick Ziegler MD at [facility] Back 0 / [id number] Angel [id number] Medtronic #[id number] - S0 N/A: Medtroni c 12/16/2026 [id number] / Implanted: Qty: 1 on 12/16/2016 by Fredrick Epps MD at [facility] Back 0 / 0 documented as of this encounter Results Not on filedocumented in this encounter Visit Diagnoses Diagnosis Anxiety Anxiety state, unspecified documented in this encounter Additional Health Concerns Infection Onset Date Last Indicated Resolved Time Extended Contact- CDiff 10/18/2018 10/18/2018 documented as of this encounter Insurance Payer Benefit Plan / Subscriber ID Effective Phone Address T ype Group Dates MEDICARE MEDICARE PART A [id number] 2015-Pres [phone] P. O. HENNY X Medicare & B ent [phone] [id number] RACHEL BROWN [phone] BCBS OF BCBS [id number] 2018-Pres [phone] P O [facility] ent [id number] [place] [address] documented as of this encounter
--- OUTSIDE RECORDS SUMMARY | 2020-03-07 09:02 | XMS REPORT | Summary of Care ---
:1950 Author Organization [facility] Address [address] [place] [address] Care Team Providers Name Role Phone MD Juan David Primary Care Provider Reason for Visit Reason Comments Orders Encounter Details Date Type Department Care Team Description 02/21/2020 Telephone [facility] Family Medicine Chase Sanchez MD Orders - [address] [place] [address] [place] [address] [phone] Allergies Active Allergy Reactions Severity Noted Date Comments Penicillins Unknown - See comments 12/03/2014 Unsur e of reaction was as a child documented as of this encounter (statuses as of 02/25/2020) Medications Medication Sig Dispensed Refills Start Date End Date Status predniSONE 10 mg Take 1 tablet 30 tablet 5 08/29/2019 Active tabletIndications: by mouth daily. Chronic low back pain without sciatica, unspecified back pain laterality omeprazole 40 mg Take 1 capsule 60 capsule 2 08/29/2019 Active capsuleIndications: by mouth 2 Gastroesophageal reflux (two) times disease, esophagitis daily. presence not specified FLUoxetine 20 mg TAKE ONE [...] FOUR Diffuse esophageal spasm TIMES A DAY zolpidem 10 mg Take 1 tablet 30 tablet 5 02/20/2020 Active tabletIndications: by mouth at Insomnia, unspecified bedtime as type needed for Insomnia. documented as of this encounter (statuses as of 02/25/2020) Active Problems Problem Noted Date Esophageal dysphagia 01/14/2019 Overview: Added automatically from request for omega mary [id number] Moderate protein-calorie malnutrition 01/14/2019 Overview: Added automatically from request for omega mary [id number] Weight loss, unintentional 01/14/2019 Overview: Added automatically from request for omega mary [id number] Altered mental status 11/28/2018 C. difficile diarrhea [...] as of this encounter (statuses as of 02/25/2020) Resolved Problems Problem Noted Date Resolved Date Low serum cortisol level 11/12/2014 03/11/2015 documented as of this encounter (statuses as of 02/25/2020) Social History Tobacco Use Types Packs/Day Years Used Date Former Smoker Cigarettes 1.5 8 Smokeless Tobacco: Never Used Comments: smoked from [age] years old Alcohol Use Drinks/Week oz/Week Comments Yes Sex Assigned at Date Recorded Not on file documented as of this encounter Last Filed Vital Signs Not on filedocumented in this encounter Miscellaneous Notes Telephone Encounter - Chase Fall MD - 02/25/2020 10:06 AM CDTOk elephone Encounter - Brianne Anderson LVN - 02/25/2020 9:58 AM CDTPt called back and telehealth appointment made for next week to have a home health face to face. elephone Encounter - Nisha Arias - 02/24/2020 3:50 PM CDTPatient returning call back. Telephone Encounter - Brianne Anderson LVN - 02/24/2020 10:42 AM CDTI called to again her line is busy, called her no answer left him a message to have her callus back. elephone Encounter - Brianne Anderson LVN - 02/21/2020 11:00 AM CDTPer [facility] she will have to be seen by the Dr before they can admit as the last visit was over 90 days ago. I called the patient, her line is busy will try again later. I called her and he said she is asleep he will have her call me back. elephone Encounter - Rosa Spears - 02/21/2020 9:03 AM CDTLori with [facility] stated she received a order and office note that has . Office visitnote is older than 90 days [facility] Tdnimsygxfuylt signed by Rosa Spears at 02/21/2020 9:06 AM CDTdocumented in this encounter Plan of Treatment Date Type Specialty Care Team Description 03/03/2020 Telemedicine Visit Family Medicine Melodie Fall MD [address] [place] [address] [phone] Health Maintenance Due Date Last Done Comments [...] of this encounter Implants Implanted Type Area Anesthesia Associate Device Shelf Model / Identifier Expiration Serial / Lot Date Dbm Putty Maxxeus 10cc Cts #2017-40 - [id number] BONE N/A: [employer] 01/09/2018 / Implanted: Qty: 1 on 09/01/2016 by Fredrick Epps MD at [facility] [id number] [phone] Dbm Putty Maxxeus 10cc Cts #2017-40 - [id number] BONE N/A: [employer] 01/09/2018 / Implanted: Qty: 1 on 09/01/2016 by Fredrick Epps MD at [facility] [id number] Cancellous Crushed, [facility] (1 10mm) Freeze Dried 90.0 Cc #1235-12 - [id number] BONE N/A: [facility] 11/09/2020 1235 / Implanted: Qty: 1 on 09/01/2016 by Fredrick Epps MD at [facility] [phone] Dbm Putty Maxxeus 10 Cts #2017-40 - [id number] BONE N/A: [facility] 01/09/2018 / Implanted: Qty: 1 on 09/21/2016 by Fredrick Epps MD at [facility] [phone] [facility] [place] us Crushed (1 10mm) Freeze Dried 30.0 Cc #1024-12 - [id number] BONE N/A: [facility] 05/25/2021 10 / Implanted: Qty: 1 on 09/21/2016 by Fredrick Epps MD at [facility] [phone] [facility] C[place]ello us Crushed (1 10mm) Freeze Dried 30.0 Cc #1024-12 - [id number] BONE N/A: [facility] 05/25/2021 10 / Implanted: Qty: 1 on 09/21/2016 by Fredrick Epps MD at [facility] [phone] Dbm Putty Maxxeus 10 Cts #2017-40 - [id number] BONE N/A: [facility] 02/09/2018 / Implanted: Qty: 1 on 12/16/2016 by Fredrick Epps MD at [facility] [id number] [phone] Cancellous Crushed, [facility] Tissue Ser vices (1 10mm) Freeze Dried 60.0 Cc #1234-12 - [id number] BONE N/A: [facility] 11/11/2021 / Implanted: Qty: 1 on 12/16/2016 by Fredrick Epps MD at [facility] [phone] Cancellous Crushed, [facility] (1 10mm) Freeze Dried 60.0 Cc #1234-12 - [id number] BONE N/A: [facility] 11/11/2021 12 34-12 / Implanted: Qty: 1 on 12/16/2016 by Fredrick Epps MD at [facility] [phone] Dbm Putty Maxxeus 10cc Cts #2018-40 - [id number] BONE N/A: [facility] 02/09/2018 / Implanted: Qty: 1 on 12/16/2016 by Fredrick Epps MD at [facility] [id number] [phone] Crosslink 4.75x10 Mltspn 38-42mm Medtronic #[id number] Crosslink N/A: Medtronic 12/16/2026 [id number] / Implanted: Qty: 2 on 12/16/2016 by Fredrick Epps MD at [facility] 0 / [id number] Lens LENS Right: Rell 05/11/2020 SN60WF / Implanted: Qty: 1 on 09/30/2015 by Leonel Davis MD at [facility] 2 [id number] / [id number] Lens LENS Left: Rell 04/11/2020 SN60WF / Implanted: Qty: 1 on 10/14/2015 by Leonel Davis MD at [facility] 9 [id number] / [id number] Screw Solera 6.5x50mm Medtronic #[id number] - S0 SCREW N/A: Medtronic 09/01/2026 [id number] / Implanted: Qty: 4 on 09/01/2016 by Fredrick Epps MD at [facility] / [id number] Screw, Medtronic Solara 6.5x45 #[id number] - S0 SCREW N/A: Medtronic 09/01/2026 [id number] / Implanted: Qty: 2 on 09/01/2016 by Fredrick Epps MD at [facility] / [id number] Screw, Medtronic Solara 6.5x40 #[id number] - S0 SCREW N/A: Medtronic 09/01/2026 [id number] / Implanted: Qty: 2 on 09/01/2016 by Fredrick Epps MD at [facility] / [id number] Screw Solera 6.5x50mm Medtronic #[id number] - S0 SCREW N/A: Medtronic [id number] / Implanted: Qty: 2 on 09/21/2016 by Fredrick Epps MD at [facility] / [id number] Pedicle Screw 5.0 X 50mm SCREW N/A: Medtronic 12/16 [id number] / Implanted: Qty: 1 on 12/16/2016 by Fredrick Epps MD at [facility] Back 0 / [id number] Pedicle Screw 5.0 X 45mm SCREW N/A: Medtronic 12/16 [id number] / Implanted: Qty: 4 on 12/16/2016 by Fredrick Epps MD at [facility] Back 0 / [id number] Pedicle Screw 4.5 X 45mm SCREW N/A: Medtronic 12/16 [id number] / Implanted: Qty: 1 on 12/16/2016 by Fredrick Epps MD at [facility] Back 0 / [id number] Pedicle Screw 4.5 X 40mm SCREW N/A: Medtronic 12/16 [id number] / Implanted: Qty: 1 on 12/16/2016 by Fredrick Epps MD at [facility] Back 0 / [id number] Pedicle Screw 5.0 X 40mm SCREW N/A: Medtronic 12/16 [id number] / Implanted: Qty: 1 on 12/16/2016 by Fredrick Epps MD at [facility] Back 0 / [id number] Screw Solera 4.75 Ti Ns Break Off Medtronic #[id number] - S0 N/A: Medtronic 09/01/2026 [id number] / Implanted: Qty: 8 on 09/01/2016 by Fredrick Epps MD at [facility] 0 / [id number] Angel 4.75 Ccm Ns Curved 100mm Solera Medtronic #[id number] - S0 N/A: Medtronic 09/01/2026 [id number] / Implanted: Qty: 2 on 09/01/2016 by Fredrick Epps MD at [facility] / 0 Screw Solera 4.75 Ti Ns Break Off Medtronic #[id number] - S0 N/ A: Medtronic [id number] / Implanted: Qty: 10 on 09/21/2016 by Fredrick Ziegler MD at [facility] / [id number] Screw Solera 7.5x50mm Medtronic #[id number] - S0 N/A: Medtronic [id number] / Implanted: Qty: 1 on 09/21/2016 by Fredrick Epps MD at [facility] / [id number] Screw Solera 8.5x45mm Mas Medtronic #[id number] - S0 N/A: Medtronic [id number] / Implanted: Qty: 1 on 09/21/2016 by Fredrick Epps MD at [facility] 0 / [id number] Angel 4.45l005dx Medtronic #[id number] - S0 N/A: Medtroni c [id number] / Implanted: Qty: 1 on 09/21/2016 by Fredrick Epps MD at [facility] / 0 Screw Solera 4.75 Ti Ns Break Off Medtronic #[id number] - S0 N/A: Medtronic 12/16/2026 [id number] / Implanted: Qty: 16 on 12/16/2016 by Fredrick Ziegler MD at [facility] Back 0 / [id number] Angel [id number] Medtronic #[id number] - S0 N/A: Medtroni c 12/16/2026 [id number] / Implanted: Qty: 1 on 12/16/2016 by Penny bañuelos, Fredrick Hernandez MD at [facility] Back documented as of this encounter Results Not on filedocumented in this encounter Additional Health Concerns Infection Onset Date Last Indicated Resolved Time Extended Contact- CDiff 10/18/2018 10/18/2018 documented as of this encounter Insurance Payer Benefit Plan / Subscriber ID Effective Phone Address T ype Group Dates MEDICARE MEDICARE PART A [id number] 2015-Pres [phone] [address] [place] Medicare & B ent [phone] [place] [address] BCBS OF BCBS [id number] 2018-Pres [phone] O [facility] TRADITIONAL ent [phone] [place] [address] documented as of this encounter
--- OUTSIDE RECORDS SUMMARY | 2020-03-07 09:02 | XMS REPORT | Summary of Care ---
:1950 Author Organization [facility] Address [address] [place] [address] Care Team Providers Name Role Phone MD Juan David Primary Care Provider Reason for Visit Reason Comments Weakness Encounter Details Date Type Department Care Team Description 03/03/2020 Telemedicine Visit [facility] Family Chase Fall, Moderate protein-calorie malnutrition (Primary Dx); Medicine - Anoop DELGADO Weight loss, unintentional; [address] [place] [address] C. diffi cile diarrhea; Drive DRIVE Anxiety; [place], [place] Chronic low solange k pain without sciatica, unspecified back pain laterality; [id number] Bed confinement status [phone] Allergies Active Allergy Reactions Severity Noted Date Comments Penicillins Unknown - See comments 12/03/2014 Unsur e of reaction was as a child documented as of this encounter (statuses as of 03/03/2020) Medications Medication Sig Dispensed Refills Start Date [...] unspecified bedtime as type needed for Insomnia. acetaminophen-codeine Take 1 tablet 180 tablet 0 02/24/2020 Active 300-60 mg by mouth every tabletIndications: 4 (four) hours chronic pain as needed for Pain. Indications: chronic pain LORazepam 1 mg Take 1 tablet 90 tablet 5 02/24/2020 Active tabletIndications: by mouth 3 Anxiety (three) times daily as needed for Anxiety or Agitation. documented as of this encounter (statuses as of 03/03/2020) Active Problems Problem Noted Date Esophageal dysphagia 01/14/2019 Overview: Added automatically from request for omega mary [id number] Moderate protein-calorie malnutrition 01/14/2019 Overview: Added automatically from request for omega mary [id number] Weight loss, unintentional 01/14/2019 Overview: Added automatically from request for omega mary [id number] Altered mental status 11/28/2018 C. difficile diarrhea [...] as of this encounter (statuses as of 03/03/2020) Resolved Problems Problem Noted Date Resolved Date Low serum cortisol level 11/12/2014 03/11/2015 documented as of this encounter (statuses as of 03/03/2020) Social History Tobacco Use Types Packs/Day Years Used Date Former Smoker Cigarettes 1.5 8 Smokeless Tobacco: Never Used Comments: smoked from [age] years old Alcohol Use Drinks/Week oz/Week Comments Yes Sex Assigned at Date Recorded Not on file documented as of this encounter Last Filed Vital Signs Not on filedocumented in this encounter Progress Notes Chase Fall MD - 03/03/2020 9:00 AM CDT TELEHEALTH NOTE Verbal consent obtained from Patient: Zunilda Jason due to the COVID-19 pandemic for telehealth services provided below. Communication with patient was conducted via Telephone due to patient unable to obtain video call option. Location of Patient: Home Location of Provider: Office Date of Service: 03/03/2020 Chief Complaint: face to face HPI: Zunilda Jason is a 69 year old female with protein/calorie malnutrition, weakness, and severe chronic back disease Past Medical History: Diagnosis Date Anxiety Arthritis spine Cataract Clostridium difficile infection Depression HTN (hypertension) Hyperlipidemia Low serum cortisol level Thyroid disease MEDICATIONS: Current Outpatient Medications Medication Sig Dispense Refill acetaminophen-codeine 300-60 mg tablet Take 1 tablet by mouth every 4 (four) hours as needed forPain. Indications: chronic pain 180 tablet 0 LORazepam 1 mg tablet Take 1 tablet by mouth 3 (three) times daily as needed for Anxiety or Agitation. 90 tablet 5 zolpidem 10 mg tablet Take 1 tablet by mouth at bedtime as needed for Insomnia. 30 tablet 5 DILTIAZEM 60 mg tablet TAKE ONE TABLET BY MOUTH FOUR TIMES A DAY 240 tablet 2 temazepam 30 mg capsule TAKE 1 CAPSULE BY MOUTH AT BEDTIME NEEDED FOR INSOMNIA 30 capsule 5 metoclopramide HCl 10 mg tablet TAKE 1 TABLET BY MOUTH EVERY 6 HOURS NEEDED FOR NAUSEA OR VOMITING 100 tablet 1 estradiol 2 mg tablet Take 1 tablet by mouth daily. 90 tablet 1 FLUoxetine 20 mg capsule TAKE ONE CAPSULE BY MOUTH AT BEDTIME 90 capsule 1 omeprazole 40 mg capsule Take 1 capsule by mouth 2 (two) times daily. 60 capsule 2 predniSONE 10 mg tablet Take 1 tablet by mouth daily. 30 tablet 5 No current facility-administered medications for this visit. ROS Weak, back pain TELEHEALTH EXAM Alert, moderate distress ASSESSMENT/ PLAN Zunilda Jason is a 69 year old female with PMH as above presenting with: face to face, has multiple health conditions including malnutrition, chronic back pain, bed bound status, depression, htn. Needs monitering of meds, PT. After visit summary (AVS ) documentation will be available through [employer] for this encounter. A total of 15 minutes was spent on the Telephone due to patient unable to obtain video call option. Chase Fall MD documented in this encounter Plan of [...] of this encounter Implants Implanted Type Area Rough Rice Tender Device Shelf Model / Identifier Expiration Serial / Lot Date Dbm Johanna Maxxeus 10cc Cts #2018-40 - [id number] BONE N/A: [employer] 01/09/2018 / Implanted: Qty: 1 on 09/01/2016 by Fredrick Epps MD at [facility] [phone] Dbm Putty Maxxeus 10cc Cts #2017-40 - [id number] BONE N/A: [employer] 01/09/2018 / Implanted: Qty: 1 on 09/01/2016 by Fredrick Epps MD at [facility] [id number] Cancellous Crushed, [facility] Tissue Ser vices (1 10mm) Freeze Dried 90.0 Cc #1235-12 - [id number] BONE N/A: [facility] 11/09/20201234 / Implanted: Qty: 1 on 09/01/2016 by Fredrick Epps MD at [facility] [id number] [phone] Dbm Putty Maxxeus 10 Cts #2017- - [id number] BONE N/A: [facility] 01/09/2018 / Implanted: Qty: 1 on 09/21/2016 by Fredrick Epps MD at [facility] [id number] [facility] Cancello us Crushed (1 10mm) Freeze Dried 30.0 Cc #1024-12 - [id number] BONE N/A: [facility] 05/25/2021 Implanted: Qty: 1 on 09/21/2016 by Fredrick Epps MD at [facility] [id number] [facility] Cancello us Crushed (1 10mm) Freeze Dried 30.0 Cc #1024-12 - [id number] BONE N/A: [facility] 05/25/2021 / Implanted: Qty: 1 on 09/21/2016 by Fredrick Epps MD at [facility] [phone] -[id number] Dbm Putty Maxxeus 10cc Cts #2018- - [id number] BONE N/A: [facility] 02/09/20182017-40 / Implanted: Qty: 1 on 12/16/2016 by Fredrick Epps MD at [facility] [id number] 6 Cancellous Crushed, [facility] Tissue Ser vices (1 10mm) Freeze Dried 60.0 Cc #1234-12 - [id number] BONE N/A: [facility] 11/11/2021 12 34-12 / Implanted: Qty: 1 on 12/16/2016 by Fredrick Epps MD at [facility] [id number] 3059 Cancellous Crushed, [facility] Tissue Ser vices (1 10mm) Freeze Dried 60.0 Cc #1234-12 - [id number] BONE N/A: [facility] 11/11/2021 12 34-12 / Implanted: Qty: 1 on 12/16/2016 by Fredrick Epps MD at [facility] [id number] 9 Dbm Putty Maxxeus 10cc Cts #2018-40 - [id number] BONE N/A: [facility] 02/09/20182017-40 / Implanted: Qty: 1 on 12/16/2016 by Fredrick Epps MD at [facility] [phone] 3219 Crosslink 4.75x10 Mltspn 38-42mm Medtronic #[id number] Crosslink N/A: Medtronic 12/16/2026 [id number] / Implanted: Qty: 2 on 12/16/2016 by Fredrick Epps MD at [facility] Back 0 / [id number] Lens LENS Right: Rell 05/11/2020 SN60WF / Implanted: Qty: 1 on 09/30/2015 by Leonel Davis MD at [facility] 8 [id number] / [id number] Lens LENS Left: Rell 04/11/2020 SN60WF / Implanted: Qty: 1 on 10/14/2015 by Leonel Davis MD at [facility] 3 [id number] / [id number] Screw Solera 6.5x50mm Medtronic #[id number] - S0 SCREW N/A: Medtronic 09/01/2026 [id number] / Implanted: Qty: 4 on 09/01/2016 by Fredrick Epps MD at [facility] / [id number] Screw, Medtronic Solara 6.5x45 #[id number] - S0 SCREW N/A: Medtronic 09/01/2026 [id number] / Implanted: Qty: 2 on 09/01/2016 by Fredrick Epps MD at [facility] 0 / [id number] Screw, Medtronic Solara 6.5x40 #[id number] - S0 SCREW N/A: Medtronic 09/01/2026 [id number] / Implanted: Qty: 2 on 09/01/2016 by Fredrick Epps MD at [facility] 0 / [id number] Screw Solera 6.5x50mm Medtronic #[id number] - S0 SCREW N/A: Medtronic [id number] / Implanted: Qty: 2 on 09/21/2016 by Fredrick Epps MD at [facility] 0 / [id number] Pedicle Screw 5.0 X 50mm SCREW N/A: Medtronic 12/16 [id number] / Implanted: Qty: 1 on 12/16/2016 by Fredrick Epps MD at [facility] Back 0 / [id number] Pedicle Screw 5.0 X 45mm SCREW N/A: Medtronic 12/16 [id number] / Implanted: Qty: 4 on 12/16/2016 by Fredrick Epps MD at [facility] Back 0 / [id number] Pedicle Screw 4.5 X 45mm SCREW N/A: Medtronic 12/16 [id number] / Implanted: Qty: 1 on 12/16/2016 by Fredrick Epps MD at [facility] Back 0 / [id number] Pedicle Screw 4.5 X 40mm SCREW N/A: Medtronic 12/16 [id number] / Implanted: Qty: 1 on 12/16/2016 by Fredrick Epps MD at [facility] Back 0 / [id number] Pedicle Screw 5.0 X 40mm SCREW N/A: Medtronic 12/16 [id number] / Implanted: Qty: 1 on 12/16/2016 by Fredrick Epps MD at [facility] Back 0 / [id number] Screw Solera 4.75 Ti Ns Break Off Medtronic #[id number] - S0 N/A: Medtronic 09/01/2026 [id number] / Implanted: Qty: 8 on 09/01/2016 by Fredrick Epps MD at [facility] 0 / [id number] Angel 4.75 Ccm Ns Curved 100mm Solera Medtronic #[id number] - S0 N/A: Medtronic 09/01/2026 [id number] / Implanted: Qty: 2 on 09/01/2016 by Fredrick Epps MD at [facility] / 0 Screw Solera 4.75 Ti Ns Break Off Medtronic #[id number] - S0 N/ A: Medtronic [id number] / Implanted: Qty: 10 on 09/21/2016 by Fredrick Ziegler MD at [facility] 0 / [id number] Screw Solera 7.5x50mm Medtronic #[id number] - S0 N/A: Medtronic [id number] / Implanted: Qty: 1 on 09/21/2016 by Fredrick Epps MD at [facility] 0 / [id number] Screw Solera 8.5x45mm Mas Medtronic #[id number] - S0 N/A: Medtronic [id number] / Implanted: Qty: 1 on 09/21/2016 by Fredrick Epps MD at [facility] 0 / [id number] Angel [id number] Medtronic #[id number] - S0 N/A: Medtroni c [id number] / Implanted: Qty: 1 on 09/21/2016 by Fredrick Epps MD at [facility] / 0 Screw Solera 4.75 Ti Ns Break Off Medtronic #[id number] - S0 N/A: Medtronic 12/16/2026 [id number] / Implanted: Qty: 16 on 12/16/2016 by Fredrick Ziegler MD at [facility] Back 0 / [id number] Angel [id number] Medtronic #[id number] - S0 N/A: Medtroni c 12/16/2026 [id number] / Implanted: Qty: 1 on 12/16/2016 by Fredrick Epps MD at [facility] Back 0 / 0 documented as of this encounter Results Not on filedocumented in this encounter Visit Diagnoses Diagnosis Moderate protein-calorie malnutrition - Primary Malnutrition of moderate degree Weight loss, unintentional Loss of weight C. difficile diarrhea Intestinal infection due to clostridium difficile Anxiety Anxiety state, unspecified Chronic low back pain without sciatica, unspecified back pain laterality Bed confinement status documented in this encounter Additional Health Concerns Infection Onset Date Last Indicated Resolved Time Extended Contact- CDiff 10/18/2018 10/18/2018 documented as of this encounter Insurance Payer Benefit Plan / Subscriber ID Effective Phone Address T ype Group Dates MEDICARE MEDICARE PART A [id number] 2015-Pres [phone] [address] [place] Medicare & B ent [id number] [place] [phone] BCBS OF BCBS [id number] 2018-Pres [phone] [address] [facility] TRADITIONAL ent [id number] [place] [address] [phone] 1 documented as of this encounter
--- OUTSIDE RECORDS SUMMARY | 2020-03-07 09:03 | XMS REPORT | Summary of Care ---
:1950 Author Organization [facility] - [facility] Address [address] [place] [address] Care Team Providers Name Role Phone MD Juan David Primary Care Provider Encounter Details Date Type Department Care Team Description 02/20/2020 Orders Only [facility] Doctor Unassigned, No [address] [facility] Name [place] [id number] [address] [place] [phone] Allergies Active Allergy Reactions Severity Noted Date Comments Penicillins Unknown - See comments 12/03/2014 Unsur e of reaction was as a child documented as of this encounter (statuses as of 03/05/2020) Medications Medication Sig Dispensed Refills Start Date [...] as of this encounter (statuses as of 03/05/2020) Active Problems Problem Noted Date Esophageal dysphagia 01/14/2019 Overview: Added automatically from request for omega mary [id number] Moderate protein-calorie malnutrition 01/14/2019 Overview: Added automatically from request for omega mary [id number] Weight loss, unintentional 01/14/2019 Overview: Added automatically from request for omega mary [id number] Altered mental status 11/28/2018 C. difficile diarrhea [...] as of this encounter (statuses as of 03/05/2020) Resolved Problems Problem Noted Date Resolved Date Low serum cortisol level 11/12/2014 03/11/2015 documented as of this encounter (statuses as of 03/05/2020) Social History Tobacco Use Types Packs/Day Years Used Date Former Smoker Cigarettes 1.5 8 Smokeless Tobacco: Never Used Comments: smoked from [age] years old Alcohol Use Drinks/Week oz/Week Comments Yes Sex Assigned at Date Recorded Not on file documented as of this encounter Last Filed Vital Signs Not on filedocumented in this encounter Plan of Treatment Health [...] of this encounter Implants Implanted Type Area Fixed Wing Pilot Device Shelf Model / Identifier Expiration Serial / Lot Date Dbm Putty Maxxeus 10cc Cts #2017-40 - [id number] BONE N/A: [employer] 01/09/2018 / Implanted: Qty: 1 on 09/01/2016 by Fredrick Epps MD at [facility] [id number] Dbm Putty Maxxeus 10cc Cts #2017-40 - [id number] BONE N/A: [employer] 01/09/2018 / Implanted: Qty: 1 on 09/01/2016 by Fredrick Epps MD at [facility] [id number] Cancellous Crushed, Community Tissue Ser vices (1 10mm) Freeze Dried 90.0 Cc #1235-12 - [id number] BONE N/A: Community 11/09/2020 1235 -12 / Implanted: Qty: 1 on 09/01/2016 by Fredrick Epps MD at [facility] [phone] Dbm Putty Maxxeus 10cc Cts #2018-40 - [id number] BONE N/A: [facility] 01/09/2018 / Implanted: Qty: 1 on 09/21/2016 by Fredrick Epps MD at [facility] [phone] [facility] [place] us Crushed (1 10mm) Freeze Dried 30.0 Cc #1024-12 - [id number] BONE N/A: [facility] 05/25/2021 10 Implanted: Qty: 1 on 09/21/2016 by Fredrick Epps MD at [facility] [phone] [facility] Cancello us Crushed (1 10mm) Freeze Dried 30.0 Cc #1024-12 - [id number] BONE N/A: [facility] 05/25/2021 10 / Implanted: Qty: 1 on 09/21/2016 by Fredrick Epps MD at [facility] [phone] Dbm Putty Maxxeus 10cc Cts #2017-40 - [id number] BONE N/A: [facility] 02/09/2018 / Implanted: Qty: 1 on 12/16/2016 by Fredrick Epps MD at [facility] [phone] Cancellous Crushed, [facility] Tissue Ser vices (1 10mm) Freeze Dried 60.0 Cc #1234-12 - [id number] BONE N/A: [facility] 11/11/2021 / Implanted: Qty: 1 on 12/16/2016 by Fredrick Epps MD at [facility] [phone] Cancellous Crushed, [facility] Tissue Ser vices (1 10mm) Freeze Dried 60.0 Cc #1234-12 - [id number] BONE N/A: [facility] 11/11/2021 12 34-12 / Implanted: Qty: 1 on 12/16/2016 by Fredrick Epps MD at [facility] [phone] Dbm Johanna Membreno [facility] #2018-40 - [id number] BONE N/A: [facility] 02/09/2018 2018-40 / Implanted: Qty: 1 on 12/16/2016 by Fredrick Epps MD at [facility] [phone] Crosslink 4.75x10 Mltspn 38-42mm Medtronic #[id number] Crosslink N/A: Medtronic 12/16/2026 [id number] / Implanted: Qty: 2 on 12/16/2016 by Fredrick Epps MD at [facility] Back 0 / [id number] Lens LENS Right: Rell 05/11/2020 SN60WF / Implanted: Qty: 1 on 09/30/2015 by Leonel Davis MD at [facility] 0 [id number] / [id number] Lens LENS Left: Rell 04/11/2020 SN60WF / Implanted: Qty: 1 on 10/14/2015 by Leonel Davis MD at [facility] 5 [id number] / [id number] Screw Solera 6.5x50mm Medtronic #[id number] - S0 SCREW N/A: Medtronic 09/01/2026 [id number] / Implanted: Qty: 4 on 09/01/2016 by Fredrick Epps MD at [facility] 0 / [id number] Screw, Medtronic Solara 6.5x45 #[id number] - S0 SCREW N/A: Medtronic 09/01/2026 [id number] / Implanted: Qty: 2 on 09/01/2016 by Fredrick Epps MD at [facility] 0 / [id number] Screw, Medtronic Solara 6.5x40 #[id number] - S0 SCREW N/A: Medtronic 09/01/2026 [id number] / Implanted: Qty: 2 on 09/01/2016 by Fredrick Epps MD at [facility] 0 / [id number] Screw Solera 6.5x50mm Medtronic #[id number] - S0 SCREW N/A: Medtronic [id number] / Implanted: Qty: 2 on 09/21/2016 by Fredrick Epps MD at [facility] 0 / [id number] Pedicle Screw 5.0 X 50mm SCREW N/A: Medtronic 12/16 [id number] / Implanted: Qty: 1 on 12/16/2016 by Fredrick Epps MD at [facility] Back 0 / [id number] Pedicle Screw 5.0 X 45mm SCREW N/A: Medtronic 12/16 [id number] / Implanted: Qty: 4 on 12/16/2016 by Fredrick Epps MD at [facility] Back 0 / [id number] Pedicle Screw 4.5 X 45mm SCREW N/A: Medtronic 12/16 [id number] / Implanted: Qty: 1 on 12/16/2016 by Fredrick Epps MD at [facility] Back 0 / [id number] Pedicle Screw 4.5 X 40mm SCREW N/A: Medtronic 12/16 [id number] / Implanted: Qty: 1 on 12/16/2016 by Fredrick Epps MD at [facility] Back 0 / [id number] Pedicle Screw 5.0 X 40mm SCREW N/A: Medtronic 12/16 [id number] / Implanted: Qty: 1 on 12/16/2016 by Fredrick Epps MD at [facility] Back 0 / [id number] Screw Solera 4.75 Ti Ns Break Off Medtronic #[id number] - S0 N/A: Medtronic 09/01/2026 [id number] / Implanted: Qty: 8 on 09/01/2016 by Fredrick Epps MD at [facility] 0 / [id number] Angel 4.75 Ccm Ns Curved 100mm Solera Medtronic #[id number] - S0 N/A: Medtronic 09/01/2026 [id number] / Implanted: Qty: 2 on 09/01/2016 by Fredrick Epps MD at [facility] / 0 Screw Solera 4.75 Ti Ns Break Off Medtronic #[id number] - S0 N/ A: Medtronic [id number] / Implanted: Qty: 10 on 09/21/2016 by Fredrick Ziegler MD at [facility] 0 / [id number] Screw Solera 7.5x50mm Medtronic #[id number] - S0 N/A: Medtronic [id number] / Implanted: Qty: 1 on 09/21/2016 by Fredrick Epps MD at [facility] 0 / [id number] Screw Solera 8.5x45mm Mas Medtronic #[id number] - S0 N/A: Medtronic [id number] / Implanted: Qty: 1 on 09/21/2016 by Fredrick Epps MD at [facility] 0 / [id number] Angel [id number] Medtronic #[id number] - S0 N/A: Medtroni c [id number] / Implanted: Qty: 1 on 09/21/2016 by Fredrick Epps MD at [facility] 0 / 0 Screw Solera 4.75 Ti Ns Break Off Medtronic #[id number] - S0 N/A: Medtronic 12/16/2026 [id number] / Implanted: Qty: 16 on 12/16/2016 by Fredrick Ziegler MD at [facility] Back 0 / [id number] Angel [id number] Medtronic #[id number] - S0 N/A: Medtroni c 12/16/2026 [id number] / Implanted: Qty: 1 on 12/16/2016 by Fredrick Epps MD at [facility] Back 0 / 0 documented as of this encounter Procedures Procedure Name Priority Date/Time Associated Diagnosis Comme nts REFERRAL- Routine 02/20/2020 12:01 AM CDT REQUEST/RESPONSE documented in this encounter Results Not on filedocumented in this encounter Additional Health Concerns Infection Onset Date Last Indicated Resolved Time Extended Contact- CDiff 10/18/2018 10/18/2018 documented as of this encounter Insurance Payer Benefit Plan / Subscriber ID Effective Phone Address T ype Group Dates MEDICARE MEDICARE PART A [id number] 2015-Pres [phone] [place] [place] [place] Medicare & B ent [id number] RACHEL BROWN [address] BCBS OF BCBS [id number] 2018-Pres [phone] O [facility] TRADITIONAL ent [phone] [place] [address] documented as of this encounter
--- OUTSIDE RECORDS SUMMARY | 2020-03-07 09:03 | XMS REPORT | Summary of Care ---
:1950 Author Organization [facility] Address [address] [place] [address] Care Team Providers Name Role Phone MD Juan David Primary Care Provider Reason for Visit Reason Comments Referral/consult Encounter Details Date Type Department Care Team Description 03/04/2020 Telephone [facility] Family Melodie Fall MD Referral/consult Medicine - [address] [place] [address] [phone] Allergies Active Allergy Reactions Severity Noted Date [...] Added automatically from request for omega mary [id number] Moderate protein-calorie malnutrition 01/14/2019 Overview: Added automatically from request for omega mary [id number] Weight loss, unintentional 01/14/2019 Overview: Added automatically from request for omega mary [id number] Altered mental status 11/28/2018 C. difficile diarrhea [...] Telephone Encounter - Brianne Anderson LVN - 03/05/2020 3:30 PM CDTReprinted the GLENYS note and faxed to [facility] after dR SIGNED AND GAVE NEW ADMISSION DIAGNOSIS elephone Encounter - Chela Jean-Baptiste I - 03/05/2020 3:[address] [facility] callin. Requesting clinic notes for DOS [id number] 2. Requesting a different admittance code: why is she having weakness (ex: stroke, fall) Fax to: [phone] signed by Chela Jean-Baptiste I at 03/05/2020 3:18 PM CDTTelephone Encounter - Coleen Carrion - 03/05/2020 1:37 PM CDTLori is returning a call and is stating that she is needing the MD visit from yesterday to be signedby the provider and faxed back to [phone] or [phone]. Alonso is requesting a call back if needed. elephone Encounter - Brianne Anderson LVN - 03/05/2020 1:25 PM CDTReturned call to Joya regarding the patient she is on another line I left message to call back. elephone Encounter - Sonia Garza - 03/04/2020 2:[address] 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 Supervisor Device Shelf Model / Identifier Expiration Serial / Lot Date Dbm Putty Maxxeus 10cc Cts #2017-40 - [id number] BONE N/A: [employer] 01/09/20182017- / Implanted: Qty: 1 on 09/01/2016 by Fredrick Epps MD at [facility] [phone] Dbm Putty Maxxeus 10cc Cts #2017- - [id number] BONE N/A: [employer] 01/09/20182017- / Implanted: Qty: 1 on 09/01/2016 by Fredrick Epps MD at [facility] [id number] Cancellous Crushed, Community Tissue Ser vices (1 10mm) Freeze Dried 90.0 Cc #1235-12 - [id number] BONE N/A: [facility] 11/09/20201234 / Implanted: Qty: 1 on 09/01/2016 by Fredrick Epps MD at [facility] [phone] Dbm Putty Maxxeus 10cc Cts #2017- - [id number] BONE N/A: [facility] 01/09/2018 / Implanted: Qty: 1 on 09/21/2016 by Fredrick Epps MD at [facility] [phone] [facility] Cancello us Crushed (1 10mm) Freeze Dried 30.0 Cc #1024-12 - [id number] BONE N/A: [facility] 05/25/2021 10 / Implanted: Qty: 1 on 09/21/2016 by Fredrick Epps MD at [facility] [phone] [facility] Cancello us Crushed (1 10mm) Freeze Dried 30.0 Cc #1024-12 - [id number] BONE N/A: [facility] 05/25/2021 10 / Implanted: Qty: 1 on 09/21/2016 by Fredrick Epps MD at [facility] [phone] Dbm Putty Maxxeus 10cc Cts # - [id number] BONE N/A: [facility] 02/09/2018 / Implanted: Qty: 1 on 12/16/2016 by Fredrick Epps MD at [facility] 189198-03 [phone] Cancellous Crushed, [facility] Tissue Ser vices (1 10mm) Freeze Dried 60.0 Cc #1234-12 - [id number] BONE N/A: [facility] 11/11/2021 12 / Implanted: Qty: 1 on 12/16/2016 by Fredrick Epps MD at [facility] 135801-48 -[phone] Cancellous Crushed, Community Tissue Ser vices (1 10mm) Freeze Dried 60.0 Cc #1234-12 - [id number] BONE N/A: [facility] 11/11/2021 12 34-12 / Implanted: Qty: 1 on 12/16/2016 by Fredrick Epps MD at [facility] 847755-02 9 Dbm Putty Maxxeus [facility] Cts #2018-40 - [id number] BONE N/A: [facility] 02/09/2018 / Implanted: Qty: 1 on 12/16/2016 by Fredrick Epps MD at [facility] [phone] Crosslink 4.75x10 Mltspn 38-42mm Medtronic #[id number] Crosslink N/A: Medtronic 12/16/2026 [id number] / Implanted: Qty: 2 on 12/16/2016 by Fredrick Epps MD at [facility] Back 0 / [id number] Lens LENS Right: Rell 05/11/2020 SN60WF / Implanted: Qty: 1 on 09/30/2015 by Leonel Davis MD at [facility] 9 [id number] / [id number] Lens LENS Left: Rell 04/11/2020 SN60WF / Implanted: Qty: 1 on 10/14/2015 by Leonel Davis MD at [facility] 4 [id number] / [id number] Screw Solera 6.5x50mm Medtronic #[id number] - S0 SCREW N/A: Medtronic 09/01/2026 [id number] / Implanted: Qty: 4 on 09/01/2016 by Fredrick Epps MD at [facility] 0 / [id number] Screw, Medtronic Solara 6.5x45 #[id number] - S0 SCREW N/A: Medtronic 09/01/2026 [id number] / Implanted: Qty: 2 on 09/01/2016 by Fredrick Epps MD at [facility] 0 / [id number] Screw, Medtronic Solara 6.5x40 #[id number] - S0 SCREW N/A: Medtronic 09/01/2026 [id number] / Implanted: Qty: 2 on 09/01/2016 by Fredrick Epps MD at [facility] 0 / [id number] Screw Solera 6.5x50mm Medtronic #[id number] - S0 SCREW N/A: Medtronic [id number] / Implanted: Qty: 2 on 09/21/2016 by Fredrick Epps MD at [facility] 0 / [id number] Pedicle Screw 5.0 X 50mm SCREW N/A: Medtronic 12/16 [id number] / Implanted: Qty: 1 on 12/16/2016 by Fredrick Epps MD at [facility] Back 0 / [id number] Pedicle Screw 5.0 X 45mm SCREW N/A: Medtronic 12/16 [id number] / Implanted: Qty: 4 on 12/16/2016 by Fredrick Epps MD at [facility] Back 0 / [id number] Pedicle Screw 4.5 X 45mm SCREW N/A: Medtronic 12/16 [id number] / Implanted: Qty: 1 on 12/16/2016 by Fredrick Epps MD at [facility] Back 0 / [id number] Pedicle Screw 4.5 X 40mm SCREW N/A: Medtronic 12/16 [id number] / Implanted: Qty: 1 on 12/16/2016 by Fredrick Epps MD at [facility] Back 0 / [id number] Pedicle Screw 5.0 X 40mm SCREW N/A: Medtronic 12/16 [id number] / Implanted: Qty: 1 on 12/16/2016 by Fredrick Epps MD at [facility] Back 0 / [id number] Screw Solera 4.75 Ti Ns Break Off Medtronic #[id number] - S0 N/A: Medtronic 09/01/2026 [id number] / Implanted: Qty: 8 on 09/01/2016 by Fredrick Epps MD at [facility] 0 / [id number] Angel 4.75 Ccm Ns Curved 100mm Solera Medtronic #[id number] - S0 N/A: Medtronic 09/01/2026 [id number] / Implanted: Qty: 2 on 09/01/2016 by Fredrick Epps MD at [facility] 0 / 0 Screw Solera 4.75 Ti Ns Break Off Medtronic #[id number] - S0 N/ A: Medtronic [id number] / Implanted: Qty: 10 on 09/21/2016 by Fredrick Ziegler MD at [facility] 0 / [id number] Screw Solera 7.5x50mm Medtronic #[id number] - S0 N/A: Medtronic [id number] / Implanted: Qty: 1 on 09/21/2016 by Fredrick Epps MD at [facility] 0 / [id number] Screw Solera 8.5x45mm Mas Medtronic #[id number] - S0 N/A: Medtronic [id number] / Implanted: Qty: 1 on 09/21/2016 by Fredrick Epps MD at [facility] 0 / [id number] Angel [id number] Medtronic #[id number] - S0 N/A: Medtroni c [id number] / Implanted: Qty: 1 on 09/21/2016 by Fredrick Epps MD at [facility] 0 / 0 Screw Solera 4.75 Ti Ns Break Off Medtronic #[id number] - S0 N/A: Medtronic 12/16/2026 [id number] / Implanted: Qty: 16 on 12/16/2016 by Fredrick Ziegler MD at [facility] Back 0 / [id number] Angel [id number] Medtronic #[id number] - S0 N/A: Medtroni c 12/16/2026 [id number] / Implanted: Qty: 1 on 12/16/2016 by Penny bañuelos, Fredrick Hernandez MD at [facility] Back documented as of this encounter Results Not on filedocumented in this encounter Additional Health Concerns Infection Onset Date Last Indicated Resolved Time Extended Contact- CDiff 10/18/2018 10/18/2018 documented as of this encounter Insurance Payer Benefit Plan / Subscriber ID Effective Phone Address T ype Group Dates MEDICARE MEDICARE PART A [id number] 2015-Pres [phone] [address] [place] X Medicare & B ent [id number] [place]HEL [place] [address] BCBS OF BCBS [id number] 2018-Pres [phone] [facility] TRADITIONAL ent [phone] [id number] [place] [address] documented as of this encounter
--- OUTSIDE RECORDS SUMMARY | 2020-03-07 09:03 | XMS REPORT | Summary of Care ---
:1950 Author Organization [facility] - [facility] Address [address] [place] [address] Care Team Providers Name Role Phone MD Juan David Primary Care Provider Encounter Details Date Type Department Care Team Description 12/18/2019 Orders Only [facility] Doctor Unassigned, No [address] [facility] Name [place] [id number] [address] [place] [id number] Allergies Active Allergy Reactions Severity Noted Date Comments Penicillins Unknown - See comments 12/03/2014 Unsur e of reaction was as a child documented as of this encounter (statuses as of 03/06/2020) Medications Medication Sig Dispensed Refills Start Date [...] as of this encounter (statuses as of 03/06/2020) Active Problems Problem Noted Date Esophageal dysphagia 01/14/2019 Overview: Added automatically from request for omega mary [id number] Moderate protein-calorie malnutrition 01/14/2019 Overview: Added automatically from request for omega mary [id number] Weight loss, unintentional 01/14/2019 Overview: Added automatically from request for omega legery [id number] Altered mental status 11/28/2018 C. difficile diarrhea [...] as of this encounter (statuses as of 03/06/2020) Resolved Problems Problem Noted Date Resolved Date Low serum cortisol level 11/12/2014 03/11/2015 documented as of this encounter (statuses as of 03/06/2020) Social History Tobacco Use Types Packs/Day Years [...] of this encounter Implants Implanted Type Area Harness Placer Device Shelf Model / Identifier Expiration Serial / Lot Date Dbm Putty Maxxeus 10cc Cts #2017-40 - [id number] BONE N/A: [employer] 01/09/2018 / Implanted: Qty: 1 on 09/01/2016 by Fredrick Epps MD at [facility] [id number] [id number] Dbm Putty Maxxeus 10cc Cts #2017-40 - [id number] BONE N/A: [employer] 01/09/2018 / Implanted: Qty: 1 on 09/01/2016 by Fredrick Epps MD at [facility] [id number] [phone] Cancellous Crushed, [facility] (1 10mm) Freeze Dried 90.0 Cc #1235-12 - [id number] BONE N/A: Community 11/09/2020 1235 / Implanted: Qty: 1 on 09/01/2016 by Fredrick Epps MD at [facility] [id number] [phone] Dbm Putty Maxxeus 10cc Cts #2017-40 - [id number] BONE N/A: Community 01/09/2018 / Implanted: Qty: 1 on 09/21/2016 by Fredrick Epps MD at [facility] [id number] [phone] Bone, [facility] [place] us Crushed (1 10mm) Freeze Dried 30.0 Cc #1024-12 - [id number] BONE N/A: [facility] 05/25/2021 10 Implanted: Qty: 1 on 09/21/2016 by Fredrick Epps MD at [facility] [id number] [facility] Cancello us Crushed (1 10mm) Freeze Dried 30.0 Cc #1024-12 - [id number] BONE N/A: [facility] 05/25/2021 10 Implanted: Qty: 1 on 09/21/2016 by Fredrick Epps MD at [facility] [id number] Dbm Putty Maxxeus 10cc Cts #2017-40 - [id number] BONE N/A: [facility] 02/09/2018 / Implanted: Qty: 1 on 12/16/2016 by Fredrick Epps MD at [facility] [id number] Cancellous Crushed, [facility] Tissue Ser vices (1 10mm) Freeze Dried 60.0 Cc #1234-12 - [id number] BONE N/A: [facility] 11/11/2021 / Implanted: Qty: 1 on 12/16/2016 by Fredrick Epps MD at [facility] [id number] Cancellous Crushed, [facility] Tissue Ser vices (1 10mm) Freeze Dried 60.0 Cc #1234-12 - [id number] BONE N/A: [facility] 11/11/2021 12 34 / Implanted: Qty: 1 on 12/16/2016 by Fredrick Epps MD at [facility] [id number] Dbm Putty Maxxeus 10cc Cts #2017- - [id number] BONE N/A: [facility] 02/09/2018 / Implanted: Qty: 1 on 12/16/2016 by Fredrick Epps MD at [facility] [id number] [phone] Crosslink 4.75x10 Mltspn 38-42mm Medtronic #[id number] Crosslink N/A: Medtronic 12/16/2026 [id number] / Implanted: Qty: 2 on 12/16/2016 by Fredrick Epps MD at [facility] Back 0 / [id number] Lens LENS Right: Rell 05/11/2020 SN60WF / Implanted: Qty: 1 on 09/30/2015 by Leonel Davis MD at [facility] 6 [id number] / [id number] Lens LENS Left: Rell 04/11/2020 SN60WF / Implanted: Qty: 1 on 10/14/2015 by Leonel Davis MD at [facility] 7 [id number] / [id number] Screw Solera 6.5x50mm Medtronic #[id number] - S0 SCREW N/A: Medtronic 09/01/2026 [id number] / Implanted: Qty: 4 on 09/01/2016 by Fredrick Epps MD at [facility] Spine 0 / [id number] Screw, Medtronic Solara 6.5x45 #[id number] - S0 SCREW N/A: Medtronic 09/01/2026 [id number] / Implanted: Qty: 2 on 09/01/2016 by Fredrick Epps MD at [facility] 0 / [id number] Screw, Medtronic Solara 6.5x40 #[id number] - S0 SCREW N/A: Medtronic 09/01/2026 [id number] / Implanted: Qty: 2 on 09/01/2016 by Fredrick Epps MD at [facility] 0 / [id number] Screw Solera 6.5x50mm Medtronic #[id number] - S0 SCREW N/A: Medtronic [id number] / Implanted: Qty: 2 on 09/21/2016 by Fredrick Epps MD at [facility] 0 / [id number] Pedicle Screw 5.0 X 50mm SCREW N/A: Medtronic 12/16 [id number] / Implanted: Qty: 1 on 12/16/2016 by Fredrick Epps MD at [facility] Back 0 / [id number] Pedicle Screw 5.0 X 45mm SCREW N/A: Medtronic 12/16 [id number] / Implanted: Qty: 4 on 12/16/2016 by Fredrick Epps MD at [facility] Back 0 / [id number] Pedicle Screw 4.5 X 45mm SCREW N/A: Medtronic 12/16 [id number] / Implanted: Qty: 1 on 12/16/2016 by Fredrick Epps MD at [facility] Back 0 / [id number] Pedicle Screw 4.5 X 40mm SCREW N/A: Medtronic 12/16 [id number] / Implanted: Qty: 1 on 12/16/2016 by Fredrick Epps MD at [facility] Back 0 / [id number] Pedicle Screw 5.0 X 40mm SCREW N/A: Medtronic 12/16 [id number] / Implanted: Qty: 1 on 12/16/2016 by Fredrick Epps MD at [facility] Back 0 / [id number] Screw Solera 4.75 Ti Ns Break Off Medtronic #[id number] - S0 N/A: Medtronic 09/01/2026 [id number] / Implanted: Qty: 8 on 09/01/2016 by Fredrick Epps MD at [facility] 0 / [id number] Angel 4.75 Ccm Ns Curved 100mm Solera Medtronic #[id number] - S0 N/A: Medtronic 09/01/2026 [id number] / Implanted: Qty: 2 on 09/01/2016 by Fredrick Epps MD at [facility] 0 / 0 Screw Solera 4.75 Ti Ns Break Off Medtronic #[id number] - S0 N/ A: Medtronic [id number] / Implanted: Qty: 10 on 09/21/2016 by Fredrick Ziegler MD at [facility] 0 / [id number] Screw Solera 7.5x50mm Medtronic #[id number] - S0 N/A: Medtronic [id number] / Implanted: Qty: 1 on 09/21/2016 by Fredrick Epps MD at [facility] / [id number] Screw Solera 8.5x45mm Mas Medtronic #[id number] - S0 N/A: Medtronic [id number] / Implanted: Qty: 1 on 09/21/2016 by Fredrick Epps MD at [facility] 0 / [id number] Angel 4.06i780cj Medtronic #[id number] - S0 N/A: Medtroni c [id number] / Implanted: Qty: 1 on 09/21/2016 by Fredrick Epps MD at [facility] 0 / 0 Screw Solera 4.75 Ti Ns Break Off Medtronic #[id number] - S0 N/A: Medtronic 12/16/2026 [id number] / Implanted: Qty: 16 on 12/16/2016 by Fredrick Ziegler MD at [facility] Back 0 / [id number] Angel [id number] Medtronic #[id number] - S0 N/A: Medtroni c 12/16/2026 [id number] / Implanted: Qty: 1 on 12/16/2016 by Fredrick Epps MD at [facility] Back 0 / 0 documented as of this encounter Procedures Procedure Name Priority Date/Time Associated Diagnosis Comme nts REFERRAL- Routine 12/18/2019 12:01 AM CDT REQUEST/RESPONSE documented in this encounter Results Not on filedocumented in this encounter Additional Health Concerns Infection Onset Date Last Indicated Resolved Time Extended Contact- CDiff 10/18/2018 10/18/2018 documented as of this encounter Insurance Payer Benefit Plan / Subscriber ID Effective Phone Address T e Group Dates MEDICARE MEDICARE PART A [id number] 2015-Pres [phone] [address] [employer] ent [id number] [address] BCBS OF BCBS [id number] 2018-Pres [phone] [facility] ent [phone] [place] [address] documented as of this encounter
[2020-03-07] MEDS ORDERED: SODIUM BICARB 50 MEQ/50ML VIAL ONE (09:54)
[2020-03-07 09:58] LABS: Absolute Lymphocytes (CBC) 7.8 K/uL (0.7-4.9); Basophils % 0.5 % (0-1.3); Hematocrit 22.2 % (36.0-45.0); Lymphocytes % 16.3 % (15.3-44.8); MPV 8.7 fL (7.6-11.3); RBC Red Blood Cell Count 1.96 M/uL (3.86-4.86)
[2020-03-07 10:00] LABS: Protime INR 1.97
[2020-03-07 10:08] LABS: Arterial Blood Carboxyhemoglob 0.1 % (0-1.5); Blood Gas Oxyhemoglobin 79.8 % (94-97); Blood O2 Saturation 80.9 % (92-98.5)
[2020-03-07 10:15] LABS: Albumin 1.6 g/dL (3.4-5.0); Bilirubin Direct 0.3 mg/dL (0-0.2); Bilirubin Total 0.4 mg/dL (0.2-1.0); CKMB Creatine Kinase MB 6.3 ng/mL (0.3-3.6); Protein, Total 4.9 g/dL (6.4-8.2); Troponin (Emerg Dept Use Only) 0.03 ng/mL (0.0-0.045)
[2020-03-07 10:17] LABS: Potassium 5.8 mmol/L (3.5-5.1)
[2020-03-07] MEDS ORDERED: NA CHLORIDE 0.9% 1,000 ML ONE (10:49)
[2020-03-07] MEDS ORDERED: ALBUTEROL 2.5 MG/3 ML NEB SOL ONE ×2 (10:49→10:52)
[2020-03-07] MEDS ORDERED: CALCIUM GLUCONATE 1 GM IVPB 1 GM/50 ML BAG IV ONE (10:50)
[2020-03-07] MEDS ORDERED: CEFTRIAXONE/SWI 1gm 1 GM/10 ML SYR ONE (10:50)
[2020-03-07] MEDS ORDERED: VANCOMYCIN/NS 1 gm 1 GM/250 ML BAG IVPB ONE (11:00)
[2020-03-07 11:02] LABS: Urine Blood 3+ (NEG); Urine Glucose NEGATIVE (NEG); Urine Protein 2+ (NEG)
[2020-03-07 11:10] LABS: Urine Bacteria >50 /HPF (<20); Urine Culture Reflex Order REFLEXED; Urine RBC <5 /HPF (NONE SEEN)
--- NOTE | 2020-03-07 11:38 | RAD REPORT ---
EXAM DESCRIPTION: Mauro Single View03/07/2020 11:08 am CLINICAL HISTORY: Chest pain COMPARISON: 2014 FINDINGS: The lungs appear clear of acute infiltrate. The heart is normal size. Postsurgical changes involve the lumbar spine IMPRESSION: No acute abnormalities displayed
[2020-03-07 11:59] LABS: Arterial Blood Carboxyhemoglob 0.8 % (0-1.5); Blood Gas Oxyhemoglobin 94.3 % (94-97); Blood O2 Saturation 96.1 % (92-98.5)
[2020-03-07 12:00] LABS: Blood Morphology Comment NOTED (NOT SEEN); Macrocytosis 2+; Platelet Estimate INCR; Polychromasia SLIGHT
--- NOTE | 2020-03-07 12:14 | RAD REPORT ---
EXAM DESCRIPTION: CT - Head Brain Wo Cont - 03/07/2020 12:03 pm CLINICAL HISTORY: Alteration of awareness/confusion COMPARISON: 2014 TECHNIQUE: Computed axial tomography of the head was obtained. IV contrast was not requested. All CT scans are performed using dose optimization technique as appropriate and may include automated exposure control or mA/KV adjustment according to patient size. FINDINGS: An intracranial bleed is not seen . The ventricles are normal in caliber. No extra-axial fluid collection is noted. Mild low-density areas within periventricular, deep and subcortical white matter likely represent is chemic changes secondary to small vessel disease. Fluid within the sinuses/ mastoids is not seen. IMPRESSION: No acute intracranial abnormality is seen. If patient's symptoms persist MRI of the bra in would be recommended.
[2020-03-07] MEDS ORDERED: NA CHLORIDE 0.9% 250 ML ONE ×2 (12:16→15:19)
[2020-03-07] MEDS ORDERED: FENTANYL CITR 100 MCG/2 ML ONE (12:57)
--- NOTE | 2020-03-07 15:34 | RAD REPORT ---
EXAM DESCRIPTION: CT - Chest Abd Pelvis Wo Con - 03/07/2020 2:59 pm CLINICAL HISTORY: Chest and abdominal pain. GI bleed. COMPARISON: None TECHNIQUE: Computed axial tomography of the chest, abdomen and pelvis was obtained. Oral contrast an d IV contrast not requested All CT scans are performed using dose optimization technique as appropriate and may include automated exposure control or mA/KV adjustment according to patient size. FINDINGS: The evaluation of mediastinum, bowel, mello, vessels and solid organs is limited secondary to the lack of IV contrast administration Left lower lobe consolidation. Mild to moderate patchy right lower lobe opacities. Mild patchy upper lobe opacities No mediastinal or hilar lymphadenopathy is seen. A pleural effusion is not present. A pericardial effusion is not seen. Fatty liver. Spleen, pancreas adrenals appear grossly normal Left kidney appears grossly normal. 16 millimeter calculus right right kidney. No hydronephrosis. Camilo rods have been placed into spine. Artifact from the hardware does obscure surrounding deta il somewhat. Sena catheter is present within the bladder. The bladder wall is thickened. There is no evidence of diverticulitis. IMPRESSION: Bilateral pulmonary opacities may represent pneumonia. Superimposed aspiration pneumonit is is also a consideration Nonobstructing right renal calculus. Thickened bladder wall may indicate cystitis
[2020-03-07] MEDS ORDERED: NOREPINEPHRINE 4mg/D5W 250mL 4 MG/250 ML BAG IV ONE (16:05)
[2020-03-07 16:22] LABS: Arterial Blood Carboxyhemoglob 0.6 % (0-1.5); Blood Gas Oxyhemoglobin 58.4 % (94-97); Blood O2 Saturation 59.4 % (92-98.5)
--- NOTE | 2020-03-07 16:55 | ER ---
[facility] Name: Zunilda Jason Age: 69 yrs Sex: Female : 1950 Arrival Date: 03/07/2020 Time: 08:58 Bed 2 Private MD: Diagnosis: Adult failure to thrive;Pneumonia, unspecified organism;GI Bleeding;Anemia, Metabolic acidosis, Hyperkalemia;Sepsis, unspecified organism Presentation: 03/07 09:00 Chief complaint: EMS states: Called for AMS.. On scene pt was in bed, staring at hb ceiling, responding to painful stimuli, SpO2 70s on RA, soaked in urine. SpO2 improved to high 80s on CPAP. reported home health nurse did not come yesterday, last known normal was 3 days ago. Coronavirus screen: At this time, the client does not indicate any symptoms associated with coronavirus-19. Ebola Screen: No symptoms or risks identified at this time. Risk Assessment: Do you want to hurt yourself or someone else? Unable to obtain. 09:00 Method Of Arrival: EMS: [facility] hb 09:00 Acuity: [facility] 1 hb 09:05 Initial Sepsis Screen: Does the patient meet any 2 criteria? Systolic BP < 90 mmHg. sv Mean Arterial Pressure (MAP) < 65. Altered Mental Status. HR > 90 bpm. Yes Does the patient have a suspected source of infection? Yes: Skin breakdown/wound. Onset of symptoms was March 06, 2020. Triage Assessment: 09:00 General: Appears distressed, ill, emaciated, malnourished, cachectic, Behavior is flat, sv unresponsive. eyes open, not blinking, staring at the wall. Smells of stool. Pain: Unable to use pain scale. Patient is disoriented. Does not appear to understand pain scale. Patient appears withdrawn. Neuro: Level of Consciousness is awake, confused, obtunded, unresponsive, Oriented to none right arm contracted. Cardiovascular: Capillary refill is > 3 seconds in bilateral fingers Rhythm is sinus tachycardia. Respiratory: Airway is patent Respiratory effort is labored, gasping, shallow, weak, Respiratory pattern is agonal tachypnea. GI: Abdomen is flat. GI: Stools are reported to be loose, black . Derm: Skin is pale. Historical: - Allergies: 11:05 PENICILLINS; sv - PSHx: 11:05 Appendectomy; Cholecystectomy; Hysterectomy; back sx; sv - Immunization history:: Adult Immunizations. - Social history:: Smoking status: . Screenin:17 Abuse screen: Denies threats or abuse. Denies injuries from another. Nutritional sv screening: No deficits noted. Tuberculosis screening: No symptoms or risk factors identified. Fall Risk No fall in past 12 months (0 pts). Secondary diagnosis (15 points) impaired mobility, IV access (20 points). Ambulatory Aid- None/Bed Rest/Nurse Assist (0 pts). Gait- Normal/Bed Rest/Wheelchair (0 pts) Mental Status- Overestimates/Forgets Limitations (15 pts.). Total Nielsen Fall Scale indicates High Risk Score (45 or more points). Fall prevention measures have been instituted. Side Rails Up X 2 Placed Close to Nursing Station Frequent Obs/Assessments Occuring Family Present and informed to notify staff if the need to leave the bedside As available patient and family educated on Fall Prevention Program and Strategies. Assessment: 08:57 Reassessment: Dr Sierra at bedside. hb 09:30 Reassessment: Dr Sierra at bedside attempting placement of a central line. sv 10:45 General: Appears in no apparent distress. comfortable, slender, Behavior is calm, sv cooperative, Pt able to squeeze my hand on command, turn her head side to side when asked, blink her eyes. . Pain: Denies pain. Neuro: Level of Consciousness is awake, alert, obeys commands, confused, Oriented to person, Moves all extremities. Cardiovascular: Rhythm is sinus tachycardia. Respiratory: Airway is patent Respiratory effort is even, unlabored, Respiratory pattern is regular, symmetrical. Derm: Skin is pale. 11:30 Reassessment: Patient appears in no apparent distress at this time. No changes from sv previously documented assessment. Patient and/or family updated on plan of care and expected duration. Pain level reassessed. Patient is alert, oriented x 3, equal unlabored respirations, skin warm/dry/pink. 12:20 Reassessment: Patient appears in no apparent distress at this time. Patient and/or sv family updated on plan of care and expected duration. Pain level reassessed. Patient is alert, oriented x 3, equal unlabored respirations, skin warm/dry/pink. 12:30 Reassessment: 1st unit of PRBCs started, see blood transfusion flowsheet. sv 12:45 Respiratory: Airway is patent Respiratory effort is even, unlabored, Respiratory sv pattern is regular, symmetrical, Breath sounds are clear bilaterally. 13:00 Reassessment: Awaiting disposition instructions from Dr Sierra. sv 13:20 Reassessment: Repeat lactate sent. sv 13:30 Reassessment: Awaiting disposition instructions from Dr Sierra. sv 14:00 Reassessment: Awaiting disposition instructions from Dr Sierra. sv 14:00 Respiratory: Airway is patent Respiratory effort is even, unlabored, Respiratory sv pattern is regular, symmetrical, Breath sounds are clear bilaterally. 14:44 Reassessment: COVID-19 sent to outside lab. sv 14:50 Reassessment: 1st unit of PRBCs complete. sv 14:59 Reassessment: Awaiting disposition instructions from Dr Sierra. sv 15:30 Reassessment: Patient appears in no apparent distress at this time. No changes from sv previously documented assessment. 15:50 Reassessment: 2nd unit of PRBC started, see blood transfusion sheet. sv 16:45 Reassessment: Dr Sierra at bedside, and discussing with the spouse of what her wishes sv are with being a DNR. Spouse was unsure of what the paperwork stated. Pt stated "I don't want the breathing machine, I don't want that kind of life." I asked the pt if her heart were to stop does she want CPR? Pt stated "No I do not want CPR. I don't want that kind of life.". 16:45 Reassessment: Patient appears in no apparent distress at this time. No changes from sv previously documented assessment. 18:05 Reassessment: Patient appears in no apparent distress at this time. No changes from sv previously documented assessment. 2nd unit of PRBCs completed. 18:49 Reassessment: Report given to [address] [place] [address] Ambulance to Ac. sv Vital Signs: 09:00 Pulse 128; Resp 19; Pulse Ox 70% on Non-rebreather mask; hb 09:00 Weight 43.09 kg; sv 09:13 BP 56 / 48; Pulse 107; Resp 19; sv 09:17 BP 87 / 64; Pulse 106; Resp 18; Pulse Ox 95% on Non-rebreather mask; sv 09:30 BP 101 / 75; Pulse 109; Resp 19; sv 09:45 BP 120 / 51; Pulse 113; Resp 19; sv 10:16 BP 102 / 34; Pulse 106; Resp 22; sv 10:30 BP 98 / 37; Pulse 105; Resp 22; Temp 96.8(C); Pulse Ox 96% on Non-rebreather mask; sv 10:45 BP 86 / 56; Pulse 106; Resp 23; Pulse Ox 100% on Non-rebreather mask; sv 11:00 BP 93 / 53; Pulse 104; Resp 24; Temp 95.7(C); sv 11:15 BP 94 / 57; Pulse 107; Resp 17; Pulse Ox 100% on Non-rebreather mask; sv 11:44 BP 96 / 60; Pulse 106; Resp 18; Temp 95.1(C); Pulse Ox 100% on 15% Non-rebreather mask; sv 12:15 BP 93 / 57; Pulse 103; Resp 20; Pulse Ox 97% ; sv 12:45 BP 88 / 60; Pulse 106; Resp 20; Pulse Ox 100% on 15% Non-rebreather mask; sv 13:15 BP 90 / 60; Pulse 108; Resp 19; Temp 95.1(C); Pulse Ox 100% on 15% Non-rebreather mask; sv 13:45 BP 85 / 50; Pulse 108; Resp 20; Temp 95.4(C); Pulse Ox 100% on 15% Non-rebreather mask; sv 14:15 BP 88 / 66; Pulse 108; Resp 18; Temp 95.5(C); Pulse Ox 100% on 15% Non-rebreather mask; sv 14:45 BP 88 / 64; Pulse 108; Resp 19; Pulse Ox 100% on 15% Non-rebreather mask; sv 15:13 BP 80 / 56; Pulse 103; Resp 20; Pulse Ox 95% on 15% Non-rebreather mask; sv 15:45 BP 72 / 49; Pulse 105 MON; Resp 19; Temp 96.3(C); Pulse Ox 97% on R/A; sv 16:00 BP 77 / 60; Pulse 108 MON; Resp 18; Pulse Ox 100% on 15% Non-rebreather mask; sv 16:15 BP 70 / 27; Pulse 106 MON; Resp 18; Temp 96.4(C); Pulse Ox 95% on 15% Non-rebreather sv mask; 16:45 BP 93 / 42; Pulse 107; Resp 20; Temp 96.4(C); Pulse Ox 98% on 15% Non-rebreather mask; sv 17:15 BP 99 / 69; Pulse 108; Resp 20; Pulse Ox 95% on 15% Non-rebreather mask; sv 17:45 BP 91 / 61; Pulse 111; Resp 20; Pulse Ox 96% on 15% Non-rebreather mask; sv 18:14 BP 93 / 63; Pulse 110; Resp 20; Pulse Ox 95% on 15% Non-rebreather mask; sv 18:45 BP 87 / 74; Pulse 101; Resp 19; Pulse Ox 96% on 15% Non-rebreather mask; sv 15:45 Sinus tachycardia sv 16:00 Sinus tachycardia sv 16:15 Sinus tachycardia sv 16:45 Sinus tachycardia sv ED Course: 08:58 Patient arrived in ED. iw 09:02 Sergio Sierra MD is Attending Physician. eb 09:04 Triage completed. hb 09:15 Inserted saline lock: 18 gauge in right EJ, using aseptic technique. ,using aseptic sv technique. done by Dr Sierra. 09:15 First set of blood cultures drawn by physician. sv 09:15 Patient has correct armband on for positive identification. Placed in gown. Bed in low sv position. Side rails up X2. monitoring and evaluation advisor on. Pulse ox on. NIBP on. 09:15 Arm band placed on. sv 09:20 Second set of blood cultures drawn by physician. sv 10:00 Inserted saline lock: 20 gauge in left EJ, using aseptic technique. ,using aseptic sv technique. done by Dr Sierra Blood collected. 10:15 Sena cath inserted, using sterile technique, 16 Fr., by ED staff, balloon inflated, to sv gravity drainage, urine specimen collected. other done by Dee Dee MITCHELL returned nico urine. Patient tolerated well. Criticore. 10:34 Angie Duckworth RN is Primary Nurse. sv 10:59 LAB Add On Sent. sv 11:00 Chest Single View XRAY Sent. sv 11:08 Chest Single View XRAY In Process Unspecified. EDMS 12:03 CT Head Brain wo Cont In Process Unspecified. EDMS 12:23 Consent for blood and/or blood product transfusion explained by staff, explained by physician, signed by spouse. 14:[address] via stretcher. sv 14:59 CT Chest Abdomen Pelvis W/O Contrast In Process Unspecified. EDMS 15:13 Patient moved back from CT. sv 15:47 initiated a transfer Remberto from the [facility] Transfer Center. eb 16:[address] Rivas the auto claims adjuster steam conditioner operator for [facility] with Dr. Sierra for eb patient transfer consultation. 16:25 administrative approval given by Remberto Hand. patient has been accepted to [facility]rich 8b 823/ Dr. Rivas has accepted the patient in transfer/ report to be called to [phone]. 16:45 Assisted provider with central line placement. Set up central line tray. Triple lumen sv line placed in left femoral. Line placed by Sergio Sierra MD Placement verified by blood return, Dressed with Tegaderm, Patient tolerated well. Before procedure, did Practitioner(s) obtain informed consent? No. Patient \\T\\ family education about procedure, CLABSI prevention and S/S of infection? Yes. Time-out/Briefing performed prior to start of procedure? Yes. Was handwashing/sanitizing done immediately prior to procedure? Yes. Was patient positioned to in a way to prevent air embolism? Yes. Was procedure site sterilized? Yes, with chlorhexidine. Was the site allowed to dry? Yes. Was local anesthetic and/or sedation utilized? During the procedure, did the Practitioner(s) maintain a sterile field? Yes. Were unused ports clamped during insertion? Yes. Was a 2nd qualified MD obtained after 3 unsuccessful insertion attempts? Yes. Was blood aspirated from each lumen? Yes. After the procedure, did the Practitioner(s) clean the site and apply a sterile dressing? Yes. 18:04 transfer transportation to receiving facility. sv 18:47 Patient transferred, IV remains in place. intact. sv 03/08 16:22 positive Blood Cultures called to Angie Mitchell./ called and spoke to Zachary Mitchell from [facility] ICU and faxed culture reports to [phone]. Administered Medications: 03/07 09:30 Drug: NS 0.9% (30 ml/kg) 30 ml/kg Route: IV; Rate: bolus; Site: right jugular; sv 11:11 Follow up: Response: No adverse reaction; IV Status: Completed infusion; IV Intake: sv 1300ml 09:50 Drug: Sodium Bicarbonate 2 amp Route: IVP; Site: left jugular; sv 10:50 Follow up: Response: No adverse reaction sv 10:56 Drug: Rocephin - (cefTRIAXone) 1 grams Route: IVPB; Infused Over: 30 mins; Site: right sv jugular; 10:58 Follow up: Response: No adverse reaction; IV Status: Completed infusion; IV Intake: 10mlsv 10:58 Drug: Albuterol 2.5 mg Route: Inhalation; sv 10:58 Drug: Calcium Gluconate 1 grams Route: IVPB; Infused Over: 60 mins; Site: right jugular;sv 12:00 Follow up: Response: No adverse reaction; IV Status: Completed infusion; IV Intake: sv 100ml 10:59 Drug: Albuterol 2.5 mg Route: Inhalation; sv 10:59 Drug: Albuterol 2.5 mg Route: Inhalation; sv 11:11 Drug: vancoMYCIN 1 grams Route: IVPB; Infused Over: 2 hrs; Site: right jugular; sv 13:10 Follow up: Response: No adverse reaction; IV Status: Completed infusion; IV Intake: sv 250ml 12:45 Drug: fentaNYL (PF) 25 mcg Route: IVP; Site: right jugular; sv 13:13 Follow up: Response: No adverse reaction; Pain is unchanged, physician notified; RASS: sv Very agitated (+3) 13:13 Drug: fentaNYL (PF) 25 mcg {Note: rass3.} Route: IVP; Site: right jugular; sv 14:00 Follow up: Response: No adverse reaction; RASS: Very agitated (+3) sv 16:00 Drug: Levophed (4 mg/250 mL D5W 4 mcg/min {Note: started at 5 mcg/min.} Route: IV; sv Rate: calculated rate; Site: left jugular; 16:19 Follow up: Rate change 7.5 calculated rate sv 16:30 Follow up: Response: No adverse reaction; Rate change 12.5 calculated rate sv 18:54 Follow up: Response: No adverse reaction; IV Status: Infusion continued upon transfer sv 17:01 Drug: Meropenem 1 grams Route: IV; Rate: calculated rate; Site: left femoral; iw 17:30 Follow up: Response: No adverse reaction; IV Status: Completed infusion sv Point of Care Testing: Guaiac: 10:15 Stool Guaiac: Positive; Stool Hemoccult Control: Pass; sv 10:[address] Sierra of result. sv Intake: 10:58 IV: 10ml; Total: 10ml. sv 11:11 IV: 1300ml; Total: 1310ml. sv 12:00 IV: 100ml; Total: 1410ml. sv 13:10 IV: 250ml; Total: 1660ml. sv Output: 19:15 Urine: 1200ml (Sena); Total: 1200ml. sv Outcome: 16:54 ER care complete, transfer ordered by . kdr 17:25 Transferred by ground EMS to [facility], Transfer form sv completed. X-rays sent w/ patient. Note: Report given to Tianna MITCHELL at [facility] 17:25 Condition: stable 17:25 Instructed on the need for transfer. 19:15 Patient left the ED. sv Addendum: 03/10/2020 08:38 Addendum: Culture Results: Positive urine culture. Results faxed to Nilsa (nurse) prmea sanchez with [facility]. Also faxed preliminary blood culture results. Signatures: Dispatcher [employer] EDMN Angie Duckworth RN RN sv Rittger, Kevin, MD MD kdr Williams, Irene, RN RN iw Calderon, Audri RN RN aa5 Breana Ramirez RN RN hb Botello, Elizabeth eb Corrections: (The following items were deleted from the chart) 03/07 11:14 10:30 BP 98 / 37; Pulse 105bpm; Resp 22bpm; Pulse Ox 96% Non-rebreather mask; sv sv 11:14 11:00 BP 93 / 53; Pulse 104bpm; Resp 24bpm; sv sv 15:03 14:00 Reassessment: Awaiting disposition instructions from Dr Sierra. sv sv 16:18 15:47 initiated a transfer Abram from the [facility] Transfer Center. eb eb 16:18 16:[address] Rivas the auto claims adjuster steam conditioner operator for [facility] with Dr. Rigo aponte for patient transfer consultation. eb 17:07 16:45 BP 70 / 27; Pulse 106bpm; Monitor: Sinus tachycardiaResp 18bpm; Pulse Ox 95% 02 sv 15% Non-rebreather mask; Temp 96.4F Catheter; sv
--- NOTE | 2020-03-07 16:55 | EDPHYS ---
Physician Documentation [facility] Name: Zunilda Jason Age: 69 yrs Sex: Female : 1950 Arrival Date: 03/07/2020 Time: 08:58 Bed 2 Private MD: ED Physician Sergio Sierra HPI: 03/07 17:04 This 69 yrs old Female presents to ER via EMS with complaints of Altered kdr Mental Status. 17:04 The patient presents with decreased mental status, decreased responsiveness. Onset: The kdr symptoms/episode began/occurred gradually, 4 day(s) ago. Possible causes: CVA or TIA, sepsis. Associated signs and symptoms: Pertinent positives: agitation, confusion, weakness. Patient's baseline: Neuro: not alert, Motor: no deficits, Generally weak and contracted. The patient has not experienced similar symptoms in the past. The patient has not recently seen a physician. states that she has been bed bound for a four days and had fallen out of bed an he was unable to get her back in bed. He states that she has not been eating or drinking. Historical: - Allergies: 11:05 PENICILLINS; sv - PSHx: 11:05 Appendectomy; Cholecystectomy; Hysterectomy; back sx; sv - Immunization history:: Adult Immunizations. - Social history:: Smoking status: . ROS: 17:04 Constitutional: The patient is a poor historian and the was not immediately kdr available. Cardiovascular: Negative for chest pain, palpitations, and edema, Respiratory: Negative for shortness of breath, cough, wheezing, and pleuritic chest pain, Back: Negative for injury and pain. 17:04 Abdomen/GI: Positive for diarrhea, Poor PO intake. Exam: 14:06 ECG was reviewed by the Attending Physician. kdr 17:04 Constitutional: This is a well developed, poorly nourished patient who is somnolent, kdr moaning and in moderate distress. Head/Face: Normocephalic, atraumatic. 17:04 Eyes: Periorbital structures: are sunken, Pupils: equal, round, and reactive to light and accomodation. 17:04 Cardiovascular: Rate: tachycardic, Rhythm: regular, Pulses: thready, weak, Edema: is not appreciated. 17:04 Respiratory: mild respiratory distress is noted, Respirations: normal, Breath sounds: are clear throughout. Vital Signs: 09:00 Pulse 128; Resp 19; Pulse Ox 70% on Non-rebreather mask; hb 09:00 Weight 43.09 kg; sv 09:13 BP 56 / 48; Pulse 107; Resp 19; sv 09:17 BP 87 / 64; Pulse 106; Resp 18; Pulse Ox 95% on Non-rebreather mask; sv 09:30 BP 101 / 75; Pulse 109; Resp 19; sv 09:45 BP 120 / 51; Pulse 113; Resp 19; sv 10:16 BP 102 / 34; Pulse 106; Resp 22; sv 10:30 BP 98 / 37; Pulse 105; Resp 22; Temp 96.8(C); Pulse Ox 96% on Non-rebreather mask; sv 10:45 BP 86 / 56; Pulse 106; Resp 23; Pulse Ox 100% on Non-rebreather mask; sv 11:00 BP 93 / 53; Pulse 104; Resp 24; Temp 95.7(C); sv 11:15 BP 94 / 57; Pulse 107; Resp 17; Pulse Ox 100% on Non-rebreather mask; sv 11:44 BP 96 / 60; Pulse 106; Resp 18; Temp 95.1(C); Pulse Ox 100% on 15% Non-rebreather mask; sv 12:15 BP 93 / 57; Pulse 103; Resp 20; Pulse Ox 97% ; sv 12:45 BP 88 / 60; Pulse 106; Resp 20; Pulse Ox 100% on 15% Non-rebreather mask; sv 13:15 BP 90 / 60; Pulse 108; Resp 19; Temp 95.1(C); Pulse Ox 100% on 15% Non-rebreather mask; sv 13:45 BP 85 / 50; Pulse 108; Resp 20; Temp 95.4(C); Pulse Ox 100% on 15% Non-rebreather mask; sv 14:15 BP 88 / 66; Pulse 108; Resp 18; Temp 95.5(C); Pulse Ox 100% on 15% Non-rebreather mask; sv 14:45 BP 88 / 64; Pulse 108; Resp 19; Pulse Ox 100% on 15% Non-rebreather mask; sv 15:13 BP 80 / 56; Pulse 103; Resp 20; Pulse Ox 95% on 15% Non-rebreather mask; sv 15:45 BP 72 / 49; Pulse 105 MON; Resp 19; Temp 96.3(C); Pulse Ox 97% on R/A; sv 16:00 BP 77 / 60; Pulse 108 MON; Resp 18; Pulse Ox 100% on 15% Non-rebreather mask; sv 16:15 BP 70 / 27; Pulse 106 MON; Resp 18; Temp 96.4(C); Pulse Ox 95% on 15% Non-rebreather sv mask; 16:45 BP 93 / 42; Pulse 107; Resp 20; Temp 96.4(C); Pulse Ox 98% on 15% Non-rebreather mask; sv 17:15 BP 99 / 69; Pulse 108; Resp 20; Pulse Ox 95% on 15% Non-rebreather mask; sv 17:45 BP 91 / 61; Pulse 111; Resp 20; Pulse Ox 96% on 15% Non-rebreather mask; sv 18:14 BP 93 / 63; Pulse 110; Resp 20; Pulse Ox 95% on 15% Non-rebreather mask; sv 18:45 BP 87 / 74; Pulse 101; Resp 19; Pulse Ox 96% on 15% Non-rebreather mask; sv 15:45 Sinus tachycardia sv 16:00 Sinus tachycardia sv 16:15 Sinus tachycardia sv 16:45 Sinus tachycardia sv Procedures: 17:04 Central Line: the site was prepped with Betadine, a triple lumen catheter was inserted, kdr in the left femoral vein, in 2 attempts. placement was verified, by blood return, the site was dressed with Tegaderm, the patient tolerated the procedure, well, Initial attempt was on the right - after viewing with US, there was not sufficient femoral vein to accept placement of the catheter. Right and left EJs were placed initially when unable to establish a triple lumen. Peripheral line: by aseptic technique a peripheral line was placed in the right external jugular vein, left external jugular vein. MDM: 16:54 Patient medically screened. kdr 16:54 Data reviewed: vital signs, nurses notes, lab test result(s), EKG, radiologic studies. kdr Counseling: I had a detailed discussion with the patient and/or guardian regarding: the historical points, exam findings, and any diagnostic results supporting the discharge/admit diagnosis, lab results, radiology results, the need to transfer to another facility. Physician consultation:. ED course: The patient initially improved with the interventions given and her pH improved from 6.9 to 7.2. While intubation was initially consider, the patient did not appear to be in a condition that would make a positive outcome from that intervention. So I initially attempted to address the underlying causes of her acidosis and in fact, she responded well initially to these interventions. Subsequently, a repeat of her ABG indicated that she was not trending in a direction that would have to potential for correction without intubation. At time we discussed with the patient the need for intubation and she refused. Her was in the room at the time and witnessed and agreed to not intubate her. The patient did ask us to help her .. 03/07 09:44 Order name: Amylase, Serum; Complete Time: 10:18 [facility] 03/07 09:44 Order name: Basic Metabolic Panel; Complete Time: 10:18 [facility] 03/07 09:44 Order name: Blood Culture Adult (2) [facility] 03/07 09:44 Order name: CBC with Diff [facility] 03/07 09:44 Order name: Ckmb; Complete Time: 10:18 [facility] 03/07 09:44 Order name: CPK; Complete Time: 10:18 [facility] 03/07 09:44 Order name: Lactate; Complete Time: 10:18 [facility] 03/07 09:44 Order name: LFT's; Complete Time: 10:18 [facility] 03/07 09:44 Order name: Lipase; Complete Time: 10:18 [facility] 03/07 09:44 Order name: Procalcitonin; Complete Time: 11:34 [facility] 03/07 09:44 Order name: Protime (+inr); Complete Time: 10:18 [facility] 03/07 09:44 Order name: Ptt, Activated; Complete Time: 10:18 [facility] 03/07 09:44 Order name: Troponin (emerg Dept Use Only); Complete Time: 10:18 [facility] 03/07 09:44 Order name: Urine Microscopic Only; Complete Time: 11:34 [facility] 03/07 10:08 Order name: ABG Arterial Blood Gas; Complete Time: 10:18 [facility] 03/07 10:19 Order name: PRBC [facility] 03/07 10:20 Order name: ABO/RH typing [facility] 03/07 10:27 Order name: LAB Add On eb 03/07 10:57 Order name: Urine Dipstick--Ancillary (enter results); Complete Time: 11:34 eb 03/07 11:11 Order name: Urine Culture [facility] 03/07 11:26 Order name: ABO/RH no charge; Complete Time: 11:34 [facility] 03/07 11:32 Order name: ABG: repeat abg; Complete Time: 12:17 eb 03/07 11:51 Order name: Antibody Screen [facility] 03/07 12:00 Order name: Manual Differential [facility] 03/07 13:34 Order name: Occult Blood--Ancillary; Complete Time: 15:42 sv 03/07 13:51 Order name: Lactate Sepsis 2 HR Follow-up; Complete Time: 15:42 [facility] 03/07 15:19 Order name: ABG; Complete Time: 16:51 [facility] 03/07 09:44 Order name: Chest Single View XRAY; Complete Time: 12:17 kdr 03/07 09:44 Order name: Accucheck; Complete Time: 11: [facility] 03/07 09:44 Order name: Cardiac monitoring; Complete Time: 11: [facility] 03/07 09:44 Order name: EKG - Nurse/Tech; Complete Time: 11: [facility] 03/07 09:44 Order name: IV Saline Lock - Large Bore; Complete Time: 11: [facility] 03/07 09:44 Order name: Labs collected and sent; Complete Time: 11: [facility] 03/07 09:44 Order name: O2 Per Protocol; Complete Time: 11: [facility] 03/07 09:44 Order name: O2 Sat Monitoring; Complete Time: 11: [facility] 03/07 09:44 Order name: Urine Dipstick-Ancillary (obtain specimen); Complete Time: 11: [facility] 03/07 11:32 Order name: CT Head Brain wo Cont; Complete Time: 12:17 iw 03/07 14:25 Order name: CT Chest Abdomen Pelvis W/O Contrast; Complete Time: 15:42 [facility] 03/07 16:17 Order name: SARS-COV-2 RT PCR EDMS EC:06 Rate is 106 beats/min. Rhythm is irregular, Sinus tachycardia with PACs. QRS [place] is kdr Normal. LA interval is normal. QRS interval is normal. Clinical impression: NSR w/ Non-specific ST/T Changes, Sinus tachycardia, and No evidence of ischemia. Administered Medications: 09:30 Drug: NS 0.9% (30 ml/kg) 30 ml/kg Route: IV; Rate: bolus; Site: right jugular; sv 11:11 Follow up: Response: No adverse reaction; IV Status: Completed infusion; IV Intake: sv 1300ml 09:50 Drug: Sodium Bicarbonate 2 amp Route: IVP; Site: left jugular; sv 10:50 Follow up: Response: No adverse reaction sv 10:56 Drug: Rocephin - (cefTRIAXone) 1 grams Route: IVPB; Infused Over: 30 mins; Site: right sv jugular; 10:58 Follow up: Response: No adverse reaction; IV Status: Completed infusion; IV Intake: 10mlsv 10:58 Drug: Albuterol 2.5 mg Route: Inhalation; sv 10:58 Drug: Calcium Gluconate 1 grams Route: IVPB; Infused Over: 60 mins; Site: right jugular;sv 12:00 Follow up: Response: No adverse reaction; IV Status: Completed infusion; IV Intake: sv 100ml 10:59 Drug: Albuterol 2.5 mg Route: Inhalation; sv 10:59 Drug: Albuterol 2.5 mg Route: Inhalation; sv 11:11 Drug: vancoMYCIN 1 grams Route: IVPB; Infused Over: 2 hrs; Site: right jugular; sv 13:10 Follow up: Response: No adverse reaction; IV Status: Completed infusion; IV Intake: sv 250ml 12:45 Drug: fentaNYL (PF) 25 mcg Route: IVP; Site: right jugular; sv 13:13 Follow up: Response: No adverse reaction; Pain is unchanged, physician notified; RASS: sv Very agitated (+3) 13:13 Drug: fentaNYL (PF) 25 mcg {Note: rass3.} Route: IVP; Site: right jugular; sv 14:00 Follow up: Response: No adverse reaction; RASS: Very agitated (+3) sv 16:00 Drug: Levophed (4 mg/250 mL D5W 4 mcg/min {Note: started at 5 mcg/min.} Route: IV; sv Rate: calculated rate; Site: left jugular; 16:19 Follow up: Rate change 7.5 calculated rate sv 16:30 Follow up: Response: No adverse reaction; Rate change 12.5 calculated rate sv 18:54 Follow up: Response: No adverse reaction; IV Status: Infusion continued upon transfer sv 17:01 Drug: Meropenem 1 grams Route: IV; Rate: calculated rate; Site: left femoral; iw 17:30 Follow up: Response: No adverse reaction; IV Status: Completed infusion sv Point of Care Testing: Guaiac: 10:15 Stool Guaiac: Positive; Stool Hemoccult Control: Pass; sv 10:[address] Sierra of result. sv Disposition: 17:16 Critical Care:. kdr Disposition: 03/07/20 16:54 Transfer ordered to [facility]. Diagnosis are Adult failure to thrive, Pneumonia, unspecified organism, GI Bleeding, Anemia, Metabolic acidosis, Hyperkalemia, Sepsis, unspecified organism. - Reason for transfer: Higher level of care. - Accepting physician is Dr. Rivas. - Condition is Critical. - Problem is new. - Symptoms have improved. Critical care time excluding procedures: 17:16 Critical care time: Bedside Care: 2 minutes, Consultation: 30 minutes, Family kdr Intervention: 30 minutes. Total time: 62 minutes Signatures: Dispatcher [employer] Angie Mathur RN RN Sergio Sierra MD MD kdr Sheila Flores RN RN Corrections: (The following items were deleted from the chart) 10:38 10:19 TYPE AND SCREEN+BB.LAB.BRZ ordered. EDMS EDMS 11:51 10:20 Antibody Screen ordered. EDMS EDMS 16:17 14:30 CORONAVIRUS+MR.LAB.BRZ ordered. EDMS EDMS 19:15 16:54 03/07/2020 16:54 Transfer ordered to [facility]. Diagnosis is Adult failure to sv thrive; Pneumonia, unspecified organism; GI Bleeding; Anemia, Metabolic acidosis, Hyperkalemia; Sepsis, unspecified organism. Reason for transfer: Higher level of care. Accepting physician is Dr. Rivas. Condition is Critical. Problem is new. Symptoms have improved. kdr
[2020-03-07 19:52] VITALS: TEMP 96.4
[2020-03-07 19:59] VITALS: BP 87/74; O2SAT 96
== END 2020-03-07 19:15 | disposition short-term general hospital (02) ==
LOC: ER 08:53
PROC: 30233N1 Transfusion of Nonautologous Red Blood Cells into Peripheral Vein, Percutaneous Approach (ICD-10-PCS; principal; 2020-03-07)
PROC: 06HN33Z Insertion of Infusion Device into Left Femoral Vein, Percutaneous Approach (ICD-10-PCS; 2020-03-07)
PROC: 05HQ33Z Insertion of Infusion Device into Left External Jugular Vein, Percutaneous Approach (ICD-10-PCS; 2020-03-07)
PROC: 05HP33Z Insertion of Infusion Device into Right External Jugular Vein, Percutaneous Approach (ICD-10-PCS; 2020-03-07)
DX: R62.7 Adult failure to thrive (principal); A41.9 Sepsis, unspecified organism; J18.9 Pneumonia, unspecified organism; E87.2 Acidosis; D64.9 Anemia, unspecified; K92.2 Gastrointestinal hemorrhage, unspecified; E87.5 Hyperkalemia; Z20.828 Contact with and (suspected) exposure to other viral communicable diseases; Z88.0 Allergy status to penicillin
CPT/HCPCS: 36430; 93005; 87040 ×2; 87088; 85025; 87086; 80048; 36415; 82150; 86900; 86850; 82550; 87205 ×3; 85610; 86901; 80076; 83605 ×2; 85730; 82272; 87077 ×4; 87186 ×4; 84484; 82553; 83690; 84145; 70450; 71250; 74176; 71045; 82805 ×3; 51702; 99291; 99292; 36556; 36569; U0003; J3010; J0610; J3370; J0696; P9016 ×2; J7050 ×2; J7030; 81003; 81015